=== PATIENT | male | born 1945 | race Caucasian/White ===

== ENCOUNTER 2021-08-27 12:36 | Inpatient (IN) | payer OTHER ==
--- OUTSIDE RECORDS SUMMARY | 2021-08-27 12:41 | XMS REPORT | Continuity of Care Document ---
:1945 Author Organization [facility] t Address [address] [place] [address] [address] [place] [address] Care Team Providers Name Role Phone SLADE BENTLEY Attending Clinician Unavailable SLADE BENTLEY Admitting Clinician Unavailable Problems This patient has no known problems. Allergies, Adverse Reactions, Alerts This patient has no known allergies or adverse reactions. Medications This patient has no known medications. Procedures This patient has no known procedures. Results Test Description Test Time Test Comments Results Result Comments Source MAGNESIUM 2016-08-28 05:41:00 Test Item Value Reference Range Interpretation Comme nts MAGNESIUM (BEAKER) (test code = 627) 1.7 mg/dL 1.6-2.6 BASIC METABOLIC [id number] 05:41:00 Test Item Value Reference Range Interpretation Comments SODIUM (BEAKER) 137 meq/L 136-145 (test code = 381) POTASSIUM (BEAKER) 4.1 meq/L 3.5-5.1 (test code = 379) CHLORIDE (BEAKER) 105 meq/L 98-107 (test code = 382) CO2 (BEAKER) (test 25 meq/L 22-29 code = 355) BLOOD UREA NITROGEN 15 mg/dL 7-21 (BEAKER) (test code = 354) CREATININE (BEAKER) 0.77 mg/dL 0.57-1.25 (test code = 358) GLUCOSE RANDOM 103 mg/dL 70-105 (BEAKER) (test code = 652) CALCIUM (BEAKER) 8.3 mg/dL 8.4-10.2 L (test code = 697) EGFR (BEAKER) (test 100 mL/min/1.73 ESTIM ATED GFR IS code = 1092) sq m NOT ACCURATE CREATININE CLEARANCE IN PREDICTING GLOMERULAR FILTRATION RATE . ESTIMATED GFR I S NOT APPLICABLE FOR DIALYSIS [facility]. CBC (HEMOGRAM ONLY)2016-08-28 05:20:00 Test Item Value Reference Range Interpretation Comments WHITE BLOOD CELL COUNT (BEAKER) 8.3 K/ L 4.0-10.0 (test code = 775) RED BLOOD CELL COUNT (BEAKER) 4.04 M/ L 4.20-5.80 L (test code = 761) HEMOGLOBIN (BEAKER) (test code = 13.0 GM/DL 13.0-16.8 410) HEMATOCRIT (BEAKER) (test code = 39.1 % 40.0-50.0 L 411) MEAN CORPUSCULAR VOLUME (BEAKER) 96.7 fL 82.0-98.0 (test code = 753) MEAN CORPUSCULAR HEMOGLOBIN 32.1 pg 27.0-33.0 (BEAKER) (test code = 751) MEAN CORPUSCULAR HEMOGLOBIN CONC 33.1 GM/DL 32.0-36.0 (BEAKER) (test code = 752) RED CELL DISTRIBUTION WIDTH 13.1 % 10.3-14.2 (BEAKER) (test code = 412) PLATELET COUNT (BEAKER) (test 318 K/CU MM 150-430 code = 756) MEAN PLATELET VOLUME (BEAKER) 7.5 fL 6.5-10.5 (test code = 754) NUCLEATED RED BLOOD CELLS 0 /100 WBC 0-0 (BEAKER) (test code = 413) [id number] 04:50:00 Test Item Value Reference Range Interpretation Comments MAGNESIUM (BEAKER) (test code = 1.7 mg/dL 1.6-2.6 627) BASIC METABOLIC [id number] 04:50:00 Test Item Value Reference Range Interpretation Comments SODIUM (BEAKER) 139 meq/L 136-145 (test code = 381) POTASSIUM (BEAKER) 4.1 meq/L 3.5-5.1 (test code = 379) CHLORIDE (BEAKER) 106 meq/L 98-107 (test code = 382) CO2 (BEAKER) (test 26 meq/L 22-29 code = 355) BLOOD UREA NITROGEN 12 mg/dL 7-21 (BEAKER) (test code = 354) CREATININE (BEAKER) 0.77 mg/dL 0.57-1.25 (test code = 358) GLUCOSE RANDOM 102 mg/dL 70-105 (BEAKER) (test code = 652) CALCIUM (BEAKER) 8.7 mg/dL 8.4-10.2 (test code = 697) EGFR (BEAKER) (test 100 mL/min/1.73 ESTIM ATED GFR IS code = 1092) sq m NOT ACCURATE CREATININE CLEARANCE IN PREDICTING GLOMERULAR FILTRATION RATE . ESTIMATED GFR I S NOT APPLICABLE FOR DIALYSIS PATIEN TS. CBC (HEMOGRAM ONLY)2016-08-27 04:40:00 Test Item Value Reference Range Interpretation Comments WHITE BLOOD CELL COUNT (BEAKER) 6.8 K/ L 4.0-10.0 (test code = 775) RED BLOOD CELL COUNT (BEAKER) 3.85 M/ L 4.20-5.80 L (test code = 761) HEMOGLOBIN (BEAKER) (test code = 12.8 GM/DL 13.0-16.8 L 410) HEMATOCRIT (BEAKER) (test code = 37.6 % 40.0-50.0 L 411) MEAN CORPUSCULAR VOLUME (BEAKER) 97.8 fL 82.0-98.0 (test code = 753) MEAN CORPUSCULAR HEMOGLOBIN 33.3 pg 27.0-33.0 H (BEAKER) (test code = 751) MEAN CORPUSCULAR HEMOGLOBIN CONC 34.1 GM/DL 32.0-36.0 (BEAKER) (test code = 752) RED CELL DISTRIBUTION WIDTH 11.5 % 10.3-14.2 (BEAKER) (test code = 412) PLATELET COUNT (BEAKER) (test 279 K/CU MM 150-430 code = 756) MEAN PLATELET VOLUME (BEAKER) 7.5 fL 6.5-10.5 (test code = 754) NUCLEATED RED BLOOD CELLS 0 /100 WBC 0-0 (BEAKER) (test code = 413) 0.00CBC (HEMOGRAM ONLY)2016-08-26 06:13:00 Test Item Value Reference Range Interpretation Comments WHITE BLOOD CELL COUNT (BEAKER) 7.9 K/ L 4.0-10.0 (test code = 775) RED BLOOD CELL COUNT (BEAKER) 4.19 M/ L 4.20-5.80 L (test code = 761) HEMOGLOBIN (BEAKER) (test code = 13.4 GM/DL 13.0-16.8 410) HEMATOCRIT (BEAKER) (test code = 40.9 % 40.0-50.0 411) MEAN CORPUSCULAR VOLUME (BEAKER) 97.6 fL 82.0-98.0 (test code = 753) MEAN CORPUSCULAR HEMOGLOBIN 32.1 pg 27.0-33.0 (BEAKER) (test code = 751) MEAN CORPUSCULAR HEMOGLOBIN CONC 32.9 GM/DL 32.0-36.0 (BEAKER) (test code = 752) RED CELL DISTRIBUTION WIDTH 13.2 % 10.3-14.2 (BEAKER) (test code = 412) PLATELET COUNT (BEAKER) (test 264 K/CU MM 150-430 code = 756) MEAN PLATELET VOLUME (BEAKER) 7.8 fL 6.5-10.5 (test code = 754) NUCLEATED RED BLOOD CELLS 0 /100 WBC 0-0 (BEAKER) (test code = 413) [id number] 06:01:00 Test Item Value Reference Range Interpretation Comments MAGNESIUM (BEAKER) (test code = 1.9 mg/dL 1.6-2.6 627) BASIC METABOLIC [id number] 06:01:00 Test Item Value Reference Range Interpretation Comments SODIUM (BEAKER) 139 meq/L 136-145 (test code = 381) POTASSIUM (BEAKER) 4.1 meq/L 3.5-5.1 (test code = 379) CHLORIDE (BEAKER) 106 meq/L 98-107 (test code = 382) CO2 (BEAKER) (test 27 meq/L 22-29 code = 355) BLOOD UREA NITROGEN 12 mg/dL 7-21 (BEAKER) (test code = 354) CREATININE (BEAKER) 0.74 mg/dL 0.57-1.25 (test code = 358) GLUCOSE RANDOM 100 mg/dL 70-105 (BEAKER) (test code = 652) CALCIUM (BEAKER) 8.8 mg/dL 8.4-10.2 (test code = 697) EGFR (BEAKER) (test 104 mL/min/1.73 ESTIM ATED GFR IS code = 1092) sq m NOT ACCURATE CREATININE CLEARANCE IN PREDICTING GLOMERULAR FILTRATION RATE . ESTIMATED GFR I S NOT APPLICABLE FOR DIALYSIS PATIMCKENZIE TS. [id number] 12:38:00 Test Item Value Reference Range Interpretation Comments MAGNESIUM (BEAKER) (test code = 1.9 mg/dL 1.6-2.6 627) [id number] 12:28:00 Test Item Value Reference Range Interpretation Comments PARTIAL THROMBOPLASTIN TIME 29.0 seconds 22.5-36.0 (BEAKER) (test code = 760) PROTHROMBIN [id number] 12:27:00 Test Item Value Reference Range Interpretation Comments PROTIME (BEAKER) (test code = 13.3 seconds 11.7-14.7 759) INR (BEAKER) (test code = 370) 1.0 <=5.9 RECOMMENDED COUMADIN/WARFARIN INR THERAPY RANGESSTANDARD DOSE: 2.0 - 3.0 Includes: PROPHYLAXIS forvenous thrombosis, systemic embolization; TREATMENT for venous thrombosis and/or pulmonary embolus.HIGH RISK: Target INR is 2.5-3.5 for patients with mechanical heart valves.[id number] 07:41:00 Test Item Value Reference Range Interpretation Comments MAGNESIUM (BEAKER) (test code = 6.4 mg/dL 1.6-2.6 HH 627) BASIC METABOLIC [id number] 07:24:00 Test Item Value Reference Range Interpretation Comments SODIUM (BEAKER) 138 meq/L 136-145 (test code = 381) POTASSIUM (BEAKER) 4.1 meq/L 3.5-5.1 (test code = 379) CHLORIDE (BEAKER) 104 meq/L 98-107 (test code = 382) CO2 (BEAKER) (test 29 meq/L 22-29 code = 355) BLOOD UREA NITROGEN 13 mg/dL 7-21 (BEAKER) (test code = 354) CREATININE (BEAKER) 0.74 mg/dL 0.57-1.25 (test code = 358) GLUCOSE RANDOM 97 mg/dL 70-105 (BEAKER) (test code = 652) CALCIUM (BEAKER) 8.5 mg/dL 8.4-10.2 (test code = 697) EGFR (BEAKER) (test 104 mL/min/1.73 ESTIM ATED GFR IS code = 1092) sq m NOT ACCURATE CREATININE CLEARANCE IN PREDICTING GLOMERULAR FILTRATION RATE . ESTIMATED GFR I S NOT APPLICABLE FOR DIALYSIS PATIEN TS. CBC (HEMOGRAM ONLY)2016-08-25 07:15:00 Test Item Value Reference Range Interpretation Comments WHITE BLOOD CELL COUNT (BEAKER) 8.6 K/ L 4.0-10.0 (test code = 775) RED BLOOD CELL COUNT (BEAKER) 3.90 M/ L 4.20-5.80 L (test code = 761) HEMOGLOBIN (BEAKER) (test code = 12.9 GM/DL 13.0-16.8 L 410) HEMATOCRIT (BEAKER) (test code = 37.8 % 40.0-50.0 L 411) MEAN CORPUSCULAR VOLUME (BEAKER) 97.0 fL 82.0-98.0 (test code = 753) MEAN CORPUSCULAR HEMOGLOBIN 33.0 pg 27.0-33.0 (BEAKER) (test code = 751) MEAN CORPUSCULAR HEMOGLOBIN CONC 34.0 GM/DL 32.0-36.0 (BEAKER) (test code = 752) RED CELL DISTRIBUTION WIDTH 13.2 % 10.3-14.2 (BEAKER) (test code = 412) PLATELET COUNT (BEAKER) (test 198 K/CU MM 150-430 code = 756) MEAN PLATELET VOLUME (BEAKER) 8.6 fL 6.5-10.5 (test code = 754) NUCLEATED RED BLOOD CELLS 0 /100 WBC 0-0 (BEAKER) (test code = 413) 0.00CBC (HEMOGRAM ONLY)2016-08-24 06:53:00 Test Item Value Reference Range Interpretation Comments WHITE BLOOD CELL COUNT (BEAKER) 10.8 K/ L 4.0-10.0 H (test code = 775) RED BLOOD CELL COUNT (BEAKER) 3.73 M/ L 4.20-5.80 L (test code = 761) HEMOGLOBIN (BEAKER) (test code = 12.3 GM/DL 13.0-16.8 L 410) HEMATOCRIT (BEAKER) (test code = 36.4 % 40.0-50.0 L 411) MEAN CORPUSCULAR VOLUME (BEAKER) 97.5 fL 82.0-98.0 (test code = 753) MEAN CORPUSCULAR HEMOGLOBIN 33.1 pg 27.0-33.0 H (BEAKER) (test code = 751) MEAN CORPUSCULAR HEMOGLOBIN CONC 33.9 GM/DL 32.0-36.0 (BEAKER) (test code = 752) RED CELL DISTRIBUTION WIDTH 11.7 % 10.3-14.2 (BEAKER) (test code = 412) PLATELET COUNT (BEAKER) (test 163 K/CU MM 150-430 code = 756) MEAN PLATELET VOLUME (BEAKER) 9.1 fL 6.5-10.5 (test code = 754) NUCLEATED RED BLOOD CELLS 0 /100 WBC 0-0 (BEAKER) (test code = 413) [id number] 06:39:00 Test Item Value Reference Range Interpretation Comments MAGNESIUM (BEAKER) (test code = 1.8 mg/dL 1.6-2.6 627) BASIC METABOLIC [id number] 06:39:00 Test Item Value Reference Range Interpretation Comments SODIUM (BEAKER) 136 meq/L 136-145 (test code = 381) POTASSIUM (BEAKER) 3.8 meq/L 3.5-5.1 (test code = 379) CHLORIDE (BEAKER) 102 meq/L 98-107 (test code = 382) CO2 (BEAKER) (test 29 meq/L 22-29 code = 355) BLOOD UREA NITROGEN 15 mg/dL 7-21 (BEAKER) (test code = 354) CREATININE (BEAKER) 0.81 mg/dL 0.57-1.25 (test code = 358) GLUCOSE RANDOM 109 mg/dL 70-105 H (BEAKER) (test code = 652) CALCIUM (BEAKER) 8.5 mg/dL 8.4-10.2 (test code = 697) EGFR (BEAKER) (test 94 mL/min/1.73 ESTIMA SAMEER GFR IS code = 1092) sq m NOT ACCURATE CREATININE CLEARANCE IN PREDICTING GLOMERULAR FILTRATION RATE . ESTIMATED GFR I S NOT APPLICABLE FOR DIALYSIS PATIEN TS. CBC (HEMOGRAM ONLY)2016-08-23 02:41:00 Test Item Value Reference Range Interpretation Comments WHITE BLOOD CELL COUNT (BEAKER) 13.9 K/ L 4.0-10.0 H (test code = 775) RED BLOOD CELL COUNT (BEAKER) 3.84 M/ L 4.20-5.80 L (test code = 761) HEMOGLOBIN (BEAKER) (test code = 13.2 GM/DL 13.0-16.8 410) HEMATOCRIT (BEAKER) (test code = 37.8 % 40.0-50.0 L 411) MEAN CORPUSCULAR VOLUME (BEAKER) 98.2 fL 82.0-98.0 H (test code = 753) MEAN CORPUSCULAR HEMOGLOBIN 34.4 pg 27.0-33.0 H (BEAKER) (test code = 751) MEAN CORPUSCULAR HEMOGLOBIN CONC 35.0 GM/DL 32.0-36.0 (BEAKER) (test code = 752) RED CELL DISTRIBUTION WIDTH 11.7 % 10.3-14.2 (BEAKER) (test code = 412) PLATELET COUNT (BEAKER) (test 140 K/CU MM 150-430 L code = 756) MEAN PLATELET VOLUME (BEAKER) 8.8 fL 6.5-10.5 (test code = 754) NUCLEATED RED BLOOD CELLS 0 /100 WBC 0-0 (BEAKER) (test code = 413) 0.00B-TYPE NATRIURETIC FACTOR (BNP)2016-08-23 02:39:00 Test Item Value Reference Range Interpretation Comments B-TYPE NATRIURETIC PEPTIDE (BEAKER) 229 pg/mL 0-100 H (test code = 700) [id number] 02:33:00 Test Item Value Reference Range Interpretation Comments MAGNESIUM (BEAKER) (test code = 1.5 mg/dL 1.6-2.6 L 627) BASIC METABOLIC [id number] 02:33:00 Test Item Value Reference Range Interpretation Comments SODIUM (BEAKER) 133 meq/L 136-145 L (test code = 381) POTASSIUM (BEAKER) 4.0 meq/L 3.5-5.1 (test code = 379) CHLORIDE (BEAKER) 102 meq/L 98-107 (test code = 382) CO2 (BEAKER) (test 26 meq/L 22-29 code = 355) BLOOD UREA NITROGEN 8 mg/dL 7-21 (BEAKER) (test code = 354) CREATININE (BEAKER) 0.79 mg/dL 0.57-1.25 (test code = 358) GLUCOSE RANDOM 132 mg/dL 70-105 H (BEAKER) (test code = 652) CALCIUM (BEAKER) 8.1 mg/dL 8.4-10.2 L (test code = 697) EGFR (BEAKER) (test 97 mL/min/1.73 ESTIMA SAMEER GFR IS code = 1092) sq m NOT ACCURATE CREATININE CLEARANCE IN PREDICTING GLOMERULAR FILTRATION RATE . ESTIMATED GFR I S NOT APPLICABLE FOR DIALYSIS PATIEN TS. [id number] 05:57:00 Test Item Value Reference Range Interpretation Comments ACTIVATED CLOTTING TIME 121 sec TEST ED AT [place] [address] ([facility]) (test code = [facility] 441) [id number] 05:57:00 Test Item Value Reference Range Interpretation Comments ACTIVATED CLOTTING TIME 410 sec TEST ED AT [place] [address] ([facility]) (test code = [place] [address]) [id number] 05:57:00 Test Item Value Reference Range Interpretation Comments ACTIVATED CLOTTING TIME 528 sec TEST ED AT [place] [address] ([facility]) (test code = [place] [address]) [id number] 04:30:00 Test Item Value Reference Range Interpretation Comments MAGNESIUM (BEAKER) (test code = 2.0 mg/dL 1.6-2.6 627) BASIC METABOLIC [id number] 04:30:00 Test Item Value Reference Range Interpretation Comments SODIUM (BEAKER) 138 meq/L 136-145 (test code = 381) POTASSIUM (BEAKER) 4.7 meq/L 3.5-5.1 (test code = 379) CHLORIDE (BEAKER) 109 meq/L 98-107 H (test code = 382) CO2 (BEAKER) (test 23 meq/L 22-29 code = 355) BLOOD UREA NITROGEN 9 mg/dL 7-21 (BEAKER) (test code = 354) CREATININE (BEAKER) 0.78 mg/dL 0.57-1.25 (test code = 358) GLUCOSE RANDOM 135 mg/dL 70-105 H (BEAKER) (test code = 652) CALCIUM (BEAKER) 8.0 mg/dL 8.4-10.2 L (test code = 697) EGFR (BEAKER) (test 98 mL/min/1.73 ESTIMA SAMEER GFR IS code = 1092) sq m NOT ACCURATE CREATININE CLEARANCE IN PREDICTING GLOMERULAR FILTRATION RATE . ESTIMATED GFR I S NOT APPLICABLE FOR DIALYSIS PATIEN TS. CBC W/PLT COUNT & AUTO [id number] 04:29:00 Test Item Value Reference Range Interpretation Comments WHITE BLOOD CELL COUNT (BEAKER) 14.0 K/ L 4.0-10.0 H (test code = 775) RED BLOOD CELL COUNT (BEAKER) 3.76 M/ L 4.20-5.80 L (test code = 761) HEMOGLOBIN (BEAKER) (test code = 12.8 GM/DL 13.0-16.8 L 410) HEMATOCRIT (BEAKER) (test code = 35.9 % 40.0-50.0 L 411) MEAN CORPUSCULAR VOLUME (BEAKER) 95.4 fL 82.0-98.0 (test code = 753) MEAN CORPUSCULAR HEMOGLOBIN 34.0 pg 27.0-33.0 H (BEAKER) (test code = 751) MEAN CORPUSCULAR HEMOGLOBIN CONC 35.6 GM/DL 32.0-36.0 (BEAKER) (test code = 752) RED CELL DISTRIBUTION WIDTH 12.6 % 10.3-14.2 (BEAKER) (test code = 412) PLATELET COUNT (BEAKER) (test 162 K/CU MM 150-430 code = 756) MEAN PLATELET VOLUME (BEAKER) 8.6 fL 6.5-10.5 (test code = 754) NUCLEATED RED BLOOD CELLS 0 /100 WBC 0-0 (BEAKER) (test code = 413) NEUTROPHILS RELATIVE PERCENT 85 % (BEAKER) (test code = 429) LYMPHOCYTES RELATIVE PERCENT 5 % (BEAKER) (test code = 430) MONOCYTES RELATIVE PERCENT 10 % (BEAKER) (test code = 431) EOSINOPHILS RELATIVE PERCENT 0 % (BEAKER) (test code = 432) BASOPHILS RELATIVE PERCENT 0 % (BEAKER) (test code = 437) NEUTROPHILS ABSOLUTE COUNT 11.80 K/ L 1.80-8.00 H (BEAKER) (test code = 670) LYMPHOCYTES ABSOLUTE COUNT 0.66 K/ L 1.48-4.50 L (BEAKER) (test code = 414) MONOCYTES ABSOLUTE COUNT (BEAKER) 1.44 K/ L 0.00-1.30 H (test code = 415) EOSINOPHILS ABSOLUTE COUNT 0.01 K/ L 0.00-0.50 (BEAKER) (test code = 416) BASOPHILS ABSOLUTE COUNT (BEAKER) 0.02 K/ L 0.00-0.20 (test code = 417) [id number] 04:26:00 Test Item Value Reference Range Interpretation Comments PHOSPHORUS (BEAKER) (test code = 3.8 mg/dL 2.3-4.7 604) [id number] 04:26:00 Test Item Value Reference Range Interpretation Comments MAGNESIUM (BEAKER) (test code = 2.0 mg/dL 1.6-2.6 627) BASIC METABOLIC [id number] 04:26:00 Test Item Value Reference Range Interpretation Comments SODIUM (BEAKER) 137 meq/L 136-145 (test code = 381) POTASSIUM (BEAKER) 4.6 meq/L 3.5-5.1 (test code = 379) CHLORIDE (BEAKER) 108 meq/L 98-107 H (test code = 382) CO2 (BEAKER) (test 24 meq/L 22-29 code = 355) BLOOD UREA NITROGEN 9 mg/dL 7-21 (BEAKER) (test code = 354) CREATININE (BEAKER) 0.78 mg/dL 0.57-1.25 (test code = 358) GLUCOSE RANDOM 137 mg/dL 70-105 H (BEAKER) (test code = 652) CALCIUM (BEAKER) 8.1 mg/dL 8.4-10.2 L (test code = 697) EGFR (BEAKER) (test 98 mL/min/1.73 ESTIMA SAMEER GFR IS code = 1092) sq m NOT ACCURATE CREATININE CLEARANCE IN PREDICTING GLOMERULAR FILTRATION RATE . ESTIMATED GFR I S NOT APPLICABLE FOR DIALYSIS PATIEN TS. CBC (HEMOGRAM ONLY)2016-08-22 04:22:00 Test Item Value Reference Range Interpretation Comments WHITE BLOOD CELL COUNT (BEAKER) 14.0 K/ L 4.0-10.0 H (test code = 775) RED BLOOD CELL COUNT (BEAKER) 3.76 M/ L 4.20-5.80 L (test code = 761) HEMOGLOBIN (BEAKER) (test code = 12.8 GM/DL 13.0-16.8 L 410) HEMATOCRIT (BEAKER) (test code = 35.9 % 40.0-50.0 L 411) MEAN CORPUSCULAR VOLUME (BEAKER) 95.4 fL 82.0-98.0 (test code = 753) MEAN CORPUSCULAR HEMOGLOBIN 34.0 pg 27.0-33.0 H (BEAKER) (test code = 751) MEAN CORPUSCULAR HEMOGLOBIN CONC 35.6 GM/DL 32.0-36.0 (BEAKER) (test code = 752) RED CELL DISTRIBUTION WIDTH 12.6 % 10.3-14.2 (BEAKER) (test code = 412) PLATELET COUNT (BEAKER) (test 162 K/CU MM 150-430 code = 756) MEAN PLATELET VOLUME (BEAKER) 8.6 fL 6.5-10.5 (test code = 754) NUCLEATED RED BLOOD CELLS 0 /100 WBC 0-0 (BEAKER) (test code = 413) 0.00BLOOD GAS, [id number] 18:15:00 Test Item Value Reference Range Interpretation Comments PH ARTERIAL (BEAKER) (test code = 7.43 7.35-7.45 383) PCO2 ARTERIAL (BEAKER) (test code 32 mmHg 35-45 L = 384) PO2 ARTERIAL (BEAKER) (test code 85 mmHg 80-90 = 385) O2 SATURATION ARTERIAL (BEAKER) 97.2 % 96.0-97.0 H (test code = 386) HCO3 ARTERIAL (BEAKER) (test code 21 mmol/L 21-29 = 388) BASE EXCESS ARTERIAL (BEAKER) -2.5 mmol/L -2.0-3.0 L (test code = 387) PATIENT TEMPERATURE (BEAKER) 35.6 C (test code = 1818) FIO2 (BEAKER) (test code = 1819) 60.0 % GLUCOSE-STAT [id number] 18:15:00 Test Item Value Reference Range Interpretation Comments GLUCOSE RANDOM (BEAKER) (test code 126 mg/dL 70-110 H = 652) [id number] 18:14:00 Test Item Value Reference Range Interpretation Comments MAGNESIUM (BEAKER) (test code = 2.0 mg/dL 1.6-2.6 627) POTASSIUM-STAT [id number] 18:11:00 Test Item Value Reference Range Interpretation Comments POTASSIUM (BEAKER) (test code = 4.1 meq/L 3.6-5.5 379) [id number] 16:35:00 Test Item Value Reference Range Interpretation Comments MAGNESIUM (BEAKER) 2.4 mg/dL 1.6-2.6 Specimen slightly (test code = 627) hemolyzed [id number] 16:35:00 Test Item Value Reference Range Interpretation Comments PHOSPHORUS (BEAKER) 3.1 mg/dL 2.3-4.7 Specimen slightly (test code = 604) hemolyzed [id number] 16:35:00 Test Item Value Reference Range Interpretation Comments POTASSIUM (BEAKER) 4.5 meq/L 3.5-5.1 Specimen slightly (test code = 379) hemolyzed [id number] 16:35:00 Test Item Value Reference Range Interpretation Comments SODIUM (BEAKER) (test code = 381) 137 meq/L 136-145 [id number] 16:35:00 Test Item Value Reference Range Interpretation Comments GLUCOSE RANDOM (BEAKER) (test code 127 mg/dL 70-105 H = 652) Effective 02/21/2014: Reference Range Change-Adult onlyNew: 70-105 Previous: 70-110BASIC METABOLIC [id number] 16:35:00 Test Item Value Reference Range Interpretation Comments SODIUM (BEAKER) 137 meq/L 136-145 (test code = 381) POTASSIUM (BEAKER) 4.5 meq/L 3.5-5.1 Specimen slightly (test code = 379) hemolyzed CHLORIDE (BEAKER) 109 meq/L 98-107 H (test code = 382) CO2 (BEAKER) (test 21 meq/L 22-29 L code = 355) BLOOD UREA NITROGEN 9 mg/dL 7-21 (BEAKER) (test code = 354) CREATININE (BEAKER) 0.78 mg/dL 0.57-1.25 Specimen slightly (test code = 358) hemolyzed GLUCOSE RANDOM 127 mg/dL 70-105 H (BEAKER) (test code = 652) CALCIUM (BEAKER) 8.7 mg/dL 8.4-10.2 (test code = 697) EGFR (BEAKER) (test 98 mL/min/1.73 ESTIMA SAMEER GFR IS code = 1092) sq m NOT ACCURATE CREATININE CLEARANCE IN PREDICTING GLOMERULAR FILTRATION RATE . ESTIMATED GFR I S NOT APPLICABLE FOR DIALYSIS PATIEN TS. LACTIC ACID, ARTERIAL, WHOLE [id number] 16:30:00 Test Item Value Reference Range Interpretation Comments LACTATE BLOOD 1.1 mmol/L 0.5-2.2 Specimen sligh tly ARTERIAL (2) (BEAKER) hemoly zed (test code = 2874) Effective 08/08/2015: Units/Reference Range ChangeNew: 0.5-2.2 mmol/L Previous: 5-20 mg/dLCBC W/PLT COUNT & AUTO [id number] 16:22:00 Test Item Value Reference Range Interpretation Comments WHITE BLOOD CELL COUNT (BEAKER) 12.7 K/ L 4.0-10.0 H (test code = 775) RED BLOOD CELL COUNT (BEAKER) 3.90 M/ L 4.20-5.80 L (test code = 761) HEMOGLOBIN (BEAKER) (test code = 13.3 GM/DL 13.0-16.8 410) HEMATOCRIT (BEAKER) (test code = 37.0 % 40.0-50.0 L 411) MEAN CORPUSCULAR VOLUME (BEAKER) 94.6 fL 82.0-98.0 (test code = 753) MEAN CORPUSCULAR HEMOGLOBIN 34.1 pg 27.0-33.0 H (BEAKER) (test code = 751) MEAN CORPUSCULAR HEMOGLOBIN CONC 36.0 GM/DL 32.0-36.0 (BEAKER) (test code = 752) RED CELL DISTRIBUTION WIDTH 12.4 % 10.3-14.2 (BEAKER) (test code = 412) PLATELET COUNT (BEAKER) (test 157 K/CU MM 150-430 code = 756) MEAN PLATELET VOLUME (BEAKER) 8.4 fL 6.5-10.5 (test code = 754) NUCLEATED RED BLOOD CELLS 0 /100 WBC 0-0 (BEAKER) (test code = 413) NEUTROPHILS RELATIVE PERCENT 82 % (BEAKER) (test code = 429) LYMPHOCYTES RELATIVE PERCENT 9 % (BEAKER) (test code = 430) MONOCYTES RELATIVE PERCENT 7 % (BEAKER) (test code = 431) EOSINOPHILS RELATIVE PERCENT 1 % (BEAKER) (test code = 432) BASOPHILS RELATIVE PERCENT 0 % (BEAKER) (test code = 437) NEUTROPHILS ABSOLUTE COUNT 10.40 K/ L 1.80-8.00 H (BEAKER) (test code = 670) LYMPHOCYTES ABSOLUTE COUNT 1.17 K/ L 1.48-4.50 L (BEAKER) (test code = 414) MONOCYTES ABSOLUTE COUNT (BEAKER) 0.92 K/ L 0.00-1.30 (test code = 415) EOSINOPHILS ABSOLUTE COUNT 0.14 K/ L 0.00-0.50 (BEAKER) (test code = 416) BASOPHILS ABSOLUTE COUNT (BEAKER) 0.05 K/ L 0.00-0.20 (test code = 417) 0.00CALCIUM, [id number] 16:10:00 Test Item Value Reference Range Interpretation Comments CALCIUM IONIZED (BEAKER) (test 1.11 mmol/L 1.12-1.27 L code = 698) PH, BLOOD (BEAKER) (test code = 7.40 1810) BLOOD GAS, [id number] 16:10:00 Test Item Value Reference Range Interpretation Comments PH ARTERIAL (BEAKER) (test code = 7.43 7.35-7.45 383) PCO2 ARTERIAL (BEAKER) (test code 36 mmHg 35-45 = 384) PO2 ARTERIAL (BEAKER) (test code 63 mmHg 80-90 L = 385) O2 SATURATION ARTERIAL (BEAKER) 94.3 % 96.0-97.0 L (test code = 386) HCO3 ARTERIAL (BEAKER) (test code 24 mmol/L 21-29 = 388) BASE EXCESS ARTERIAL (BEAKER) -1.0 mmol/L -2.0-3.0 (test code = 387) PATIENT TEMPERATURE (BEAKER) 35.3 C (test code = 1818) FIO2 (BEAKER) (test code = 1819) 60.0 % OXYGEN SATURATION, [id number] 16:08:00 Test Item Value Reference Range Interpretation Comments O2 SATURATION (MEASURED) (BEAKER) 59.9 % (test code = 1455) From distal port of IJ central venous catheterBLOOD GAS, [id number] 14:53:00 Test Item Value Reference Range Interpretation Comments PH ARTERIAL (BEAKER) (test code = 7.41 7.35-7.45 383) PCO2 ARTERIAL (BEAKER) (test code 36 mmHg 35-45 = 384) PO2 ARTERIAL (BEAKER) (test code 132 mmHg 80-90 H = 385) O2 SATURATION ARTERIAL (BEAKER) 98.8 % 96.0-97.0 H (test code = 386) HCO3 ARTERIAL (BEAKER) (test code 23 mmol/L 21-29 = 388) BASE EXCESS ARTERIAL (BEAKER) -2.0 mmol/L -2.0-3.0 (test code = 387) PATIENT TEMPERATURE (BEAKER) 35.1 C (test code = 1818) FIO2 (BEAKER) (test code = 1819) 97.0 % GLUCOSE-STAT [id number] 14:53:00 Test Item Value Reference Range Interpretation Comments GLUCOSE RANDOM (BEAKER) (test code 136 mg/dL 70-110 H = 652) HGB/HCT (H&H) - STAT [id number] 14:53:00 Test Item Value Reference Range Interpretation Comments HEMOGLOBIN (BEAKER) (test code = 12.9 g/dL 13.0-16.8 L 410) HEMATOCRIT (BEAKER) (test code = 38.0 % 40.0-50.0 L 411) CALCIUM, [id number] 14:53:00 Test Item Value Reference Range Interpretation Comments CALCIUM IONIZED (BEAKER) (test 0.96 mmol/L 1.12-1.27 L code = 698) PH, BLOOD (BEAKER) (test code = 7.39 1810) SODIUM NA-STAT [id number] 14:52:00 Test Item Value Reference Range Interpretation Comments SODIUM (BEAKER) (test code = 381) 135 meq/L 135-148 POTASSIUM-STAT [id number] 14:52:00 Test Item Value Reference Range Interpretation Comments POTASSIUM (BEAKER) (test code = 4.0 meq/L 3.6-5.5 379) THROMBOELASTOGRAPH (TEG)[id number] 14:24:00 Test Item Value Reference Range Interpretation Comments TEG ACTIVATED CLOTTING TIME 4.2 minutes 4.0-7.0 (BEAKER) (test code = 1407) TEG FIBRINOGEN ACTIVITY (BEAKER) 72.7 degrees 61.0-73.0 (test code = 1408) TEG PLT. AGGREGATION (BEAKER) 56.0 MM 55.0-65.0 (test code = 1409) TGH ACTIVATED CLOTTING TIME 4.5 minutes 4.0-7.0 (BEAKER) (test code = 1411) TGH FIBRINOGEN ACTIVITY (BEAKER) 72.6 degrees 61.0-73.0 (test code = 1412) TGH PLT. AGGREGATION (BEAKER) 66.1 MM 55.0-65.0 H (test code = 1413) [id number] 14:13:00 Test Item Value Reference Range Interpretation Comments FIBRINOGEN LEVEL (BEAKER) (test 209 mg/dl 225-434 L code = 658) PROTHROMBIN [id number] 14:08:00 Test Item Value Reference Range Interpretation Comments PROTIME (BEAKER) (test code = 19.2 seconds 11.7-14.7 H 759) INR (BEAKER) (test code = 370) 1.6 <=5.9 RECOMMENDED COUMADIN/WARFARIN INR THERAPY RANGESSTANDARD DOSE: 2.0 - 3.0 Includes: PROPHYLAXIS forvenous thrombosis, systemic embolization; TREATMENT for venous thrombosis and/or pulmonary embolus.HIGH RISK: Target INR is 2.5-3.5 for patients with mechanical heart valves.[id number] 14:08:00 Test Item Value Reference Range Interpretation Comments PARTIAL THROMBOPLASTIN TIME 30.3 seconds 22.5-36.0 (BEAKER) (test code = 760) PLATELET [id number] 14:01:00 Test Item Value Reference Range Interpretation Comments PLATELET COUNT (BEAKER) (test 158 K/CU MM 150-430 code = 756) BLOOD GAS, [id number] 13:53:00 Test Item Value Reference Range Interpretation Comments PH ARTERIAL (BEAKER) (test code = 7.46 7.35-7.45 H 383) PCO2 ARTERIAL (BEAKER) (test code 33 mmHg 35-45 L = 384) PO2 ARTERIAL (BEAKER) (test code 219 mmHg 80-90 H = 385) O2 SATURATION ARTERIAL (BEAKER) 99.5 % 96.0-97.0 H (test code = 386) HCO3 ARTERIAL (BEAKER) (test code 23 mmol/L 21-29 = 388) BASE EXCESS ARTERIAL (BEAKER) -0.8 mmol/L -2.0-3.0 (test code = 387) PATIENT TEMPERATURE (BEAKER) 35.5 C (test code = 1818) FIO2 (BEAKER) (test code = 1819) 97.0 % GLUCOSE-STAT [id number] 13:53:00 Test Item Value Reference Range Interpretation Comments GLUCOSE RANDOM (BEAKER) (test code 112 mg/dL 70-110 H = 652) SODIUM NA-STAT [id number] 13:53:00 Test Item Value Reference Range Interpretation Comments SODIUM (BEAKER) (test code = 381) 133 meq/L 135-148 L HGB/HCT (H&H) - STAT [id number] 13:53:00 Test Item Value Reference Range Interpretation Comments HEMOGLOBIN (BEAKER) (test code = 11.5 g/dL 13.0-16.8 L 410) HEMATOCRIT (BEAKER) (test code = 34.0 % 40.0-50.0 L 411) CALCIUM, [id number] 13:53:00 Test Item Value Reference Range Interpretation Comments CALCIUM IONIZED (BEAKER) (test 1.11 mmol/L 1.12-1.27 L code = 698) PH, BLOOD (BEAKER) (test code = 7.44 1810) POTASSIUM-STAT [id number] 13:50:00 Test Item Value Reference Range Interpretation Comments POTASSIUM (BEAKER) (test code = 4.3 meq/L 3.6-5.5 379) POTASSIUM-STAT [id number] 13:11:00 Test Item Value Reference Range Interpretation Comments POTASSIUM (BEAKER) (test code = 4.5 meq/L 3.6-5.5 379) BLOOD GAS, [id number] 13:11:00 Test Item Value Reference Range Interpretation Comments PH ARTERIAL (BEAKER) (test code = 7.42 7.35-7.45 383) PCO2 ARTERIAL (BEAKER) (test code 37 mmHg 35-45 = 384) PO2 ARTERIAL (BEAKER) (test code 492 mmHg 80-90 H = 385) O2 SATURATION ARTERIAL (BEAKER) 99.9 % 96.0-97.0 H (test code = 386) HCO3 ARTERIAL (BEAKER) (test code 25 mmol/L 21-29 = 388) BASE EXCESS ARTERIAL (BEAKER) -0.9 mmol/L -2.0-3.0 (test code = 387) PATIENT TEMPERATURE (BEAKER) 31.8 C (test code = 1818) FIO2 (BEAKER) (test code = 1819) 80.0 % GLUCOSE-STAT [id number] 13:11:00 Test Item Value Reference Range Interpretation Comments GLUCOSE RANDOM (BEAKER) (test code 114 mg/dL 70-110 H = 652) SODIUM NA-STAT [id number] 13:11:00 Test Item Value Reference Range Interpretation Comments SODIUM (BEAKER) (test code = 381) 133 meq/L 135-148 L HGB/HCT (H&H) - STAT [id number] 13:11:00 Test Item Value Reference Range Interpretation Comments HEMOGLOBIN (BEAKER) (test code = 10.4 g/dL 13.0-16.8 L 410) HEMATOCRIT (BEAKER) (test code = 31.0 % 40.0-50.0 L 411) BLOOD GAS, [id number] 12:10:00 Test Item Value Reference Range Interpretation Comments PH ARTERIAL (BEAKER) (test code = 7.46 7.35-7.45 H 383) PCO2 ARTERIAL (BEAKER) (test code 35 mmHg 35-45 = 384) PO2 ARTERIAL (BEAKER) (test code = 255 mmHg 80-90 H 385) O2 SATURATION ARTERIAL (BEAKER) 99.6 % 96.0-97.0 H (test code = 386) HCO3 ARTERIAL (BEAKER) (test code 25 mmol/L 21-29 = 388) BASE EXCESS ARTERIAL (BEAKER) 0.7 mmol/L -2.0-3.0 (test code = 387) PATIENT TEMPERATURE (BEAKER) (test 35.4 C code = 1818) FIO2 (BEAKER) (test code = 1819) 100.0 % POTASSIUM-STAT [id number] 12:08:00 Test Item Value Reference Range Interpretation Comments POTASSIUM (BEAKER) (test code = 3.7 meq/L 3.6-5.5 379) HGB/HCT (H&H) - STAT [id number] 12:08:00 Test Item Value Reference Range Interpretation Comments HEMOGLOBIN (BEAKER) (test code = 15.2 g/dL 13.0-16.8 410) HEMATOCRIT (BEAKER) (test code = 45.0 % 40.0-50.0 411) GLUCOSE-STAT [id number] 12:08:00 Test Item Value Reference Range Interpretation Comments GLUCOSE RANDOM (BEAKER) (test code 101 mg/dL 70-110 = 652) SODIUM NA-STAT [id number] 12:08:00 Test Item Value Reference Range Interpretation Comments SODIUM (BEAKER) (test code = 381) 137 meq/L 135-148 HEMOGLOBIN [id number] 12:31:00 Test Item Value Reference Range Interpretation Comments HEMOGLOBIN A1C (BEAKER) (test code = 4.9 % 4.3-6.1 368) BASIC METABOLIC [id number] 10:54:00 Test Item Value Reference Range Interpretation Comments SODIUM (BEAKER) 138 meq/L 136-145 (test code = 381) POTASSIUM (BEAKER) 4.0 meq/L 3.5-5.1 (test code = 379) CHLORIDE (BEAKER) 104 meq/L 98-107 (test code = 382) CO2 (BEAKER) (test 27 meq/L 22-29 code = 355) BLOOD UREA NITROGEN 13 mg/dL 7-21 (BEAKER) (test code = 354) CREATININE (BEAKER) 0.92 mg/dL 0.57-1.25 (test code = 358) GLUCOSE RANDOM 111 mg/dL 70-105 H (BEAKER) (test code = 652) CALCIUM (BEAKER) 9.3 mg/dL 8.4-10.2 (test code = 697) EGFR (BEAKER) (test 81 mL/min/1.73 ESTIMA SAMEER GFR IS code = 1092) sq m NOT ACCURATE CREATININE CLEARANCE IN PREDICTING GLOMERULAR FILTRATION RATE . ESTIMATED GFR I S NOT APPLICABLE FOR DIALYSIS PATIEN TS. CBC W/PLT COUNT & AUTO [id number] 10:47:00 Test Item Value Reference Range Interpretation Comments WHITE BLOOD CELL COUNT (BEAKER) 6.3 K/ L 4.0-10.0 (test code = 775) RED BLOOD CELL COUNT (BEAKER) 4.71 M/ L 4.20-5.80 (test code = 761) HEMOGLOBIN (BEAKER) (test code = 16.0 GM/DL 13.0-16.8 410) HEMATOCRIT (BEAKER) (test code = 45.4 % 40.0-50.0 411) MEAN CORPUSCULAR VOLUME (BEAKER) 96.5 fL 82.0-98.0 (test code = 753) MEAN CORPUSCULAR HEMOGLOBIN 34.0 pg 27.0-33.0 H (BEAKER) (test code = 751) MEAN CORPUSCULAR HEMOGLOBIN CONC 35.3 GM/DL 32.0-36.0 (BEAKER) (test code = 752) RED CELL DISTRIBUTION WIDTH 11.8 % 10.3-14.2 (BEAKER) (test code = 412) PLATELET COUNT (BEAKER) (test 188 K/CU MM 150-430 code = 756) MEAN PLATELET VOLUME (BEAKER) 8.7 fL 6.5-10.5 (test code = 754) NUCLEATED RED BLOOD CELLS 0 /100 WBC 0-0 (BEAKER) (test code = 413) NEUTROPHILS RELATIVE PERCENT 67 % (BEAKER) (test code = 429) LYMPHOCYTES RELATIVE PERCENT 15 % (BEAKER) (test code = 430) MONOCYTES RELATIVE PERCENT 15 % (BEAKER) (test code = 431) EOSINOPHILS RELATIVE PERCENT 2 % (BEAKER) (test code = 432) BASOPHILS RELATIVE PERCENT 1 % (BEAKER) (test code = 437) NEUTROPHILS ABSOLUTE COUNT 4.21 K/ L 1.80-8.00 (BEAKER) (test code = 670) LYMPHOCYTES ABSOLUTE COUNT 0.95 K/ L 1.48-4.50 L (BEAKER) (test code = 414) MONOCYTES ABSOLUTE COUNT (BEAKER) 0.91 K/ L 0.00-1.30 (test code = 415) EOSINOPHILS ABSOLUTE COUNT 0.16 K/ L 0.00-0.50 (BEAKER) (test code = 416) BASOPHILS ABSOLUTE COUNT (BEAKER) 0.07 K/ L 0.00-0.20 (test code = 417) 0.00PROTHROMBIN [id number] 10:46:00 Test Item Value Reference Range Interpretation Comments PROTIME (BEAKER) (test code = 13.4 seconds 11.7-14.7 759) INR (BEAKER) (test code = 370) 1.0 <=5.9 RECOMMENDED COUMADIN/WARFARIN INR THERAPY RANGESSTANDARD DOSE: 2.0 - 3.0 Includes: PROPHYLAXIS forvenous thrombosis, systemic embolization; TREATMENT for venous thrombosis and/or pulmonary embolus.HIGH RISK: Target INR is 2.5-3.5 for patients with mechanical heart valves.
[2021-08-27 13:20] LABS: Absolute Lymphocytes (CBC) 0.5 K/uL (0.7-4.9); Hematocrit 39.8 % (39.6-49.0); Lymphocytes % 11.5 % (15.3-44.8); MPV 8.6 fL (7.6-11.3); RBC Red Blood Cell Count 4.36 M/uL (4.33-5.43)
[2021-08-27 13:30] LABS: Protime INR 0.98
--- NOTE | 2021-08-27 13:38 | RAD REPORT ---
EXAM DESCRIPTION: RAD - Chest Single View - 08/27/2021 1:24 pm CLINICAL HISTORY: slurred speech COMPARISON: Two view chest 07/30/2020 TECHNIQUE: AP portable chest image was obtained 08/27/2021 1:24 pm . FINDINGS: No acute lung parenchymal process. Interstitial pattern matches comparison. Sternotomy wires are in place. Mild cardiomegaly is present without vascular engorgement. No measurab le pleural effusion and no pneumothorax. No acute bony abnormality seen. No acute aortic findings errol pected. IMPRESSION: No acute cardiopulmonary process. Mild cardiomegaly is present without other findings of CHF/volume overload. No significant change from comparison study.
--- NOTE | 2021-08-27 14:47 | RAD REPORT ---
EXAM DESCRIPTION: CT - Head angio - 08/27/2021 2:19 pm CLINICAL HISTORY: Neuro deficit, acute, stroke suspected TECHNIQUE: During dynamic enhancement using nonionic IV contrast, axial 1 millimeter thick images of the head were obtained. Sagittal and axial reconstruction images were generated using MIP technique and reviewed. All CT scans are performed using dose optimization technique as appropriate and may include automated exposure control or mA/KV adjustment according to patient size. COMPARISON: CT head same date FINDINGS: No aneurysm or vascular malformation identified. Major venous sinuses are patent. No stenosis, named branch occlusion, vasculitis or other significant vascular finding identifiable in the anterior, middle or posterior cerebral artery distributions. No basilar artery abnormality. Cave rnous and supraclinoid segments of each internal carotid artery show prominent atherosclerotic calcif ications. Stenosis does not exceed 30-40%. . IMPRESSION: Distal internal carotid artery atherosclerotic calcifications are present without signi ficant stenosis. No named branch occlusion, vasculitis or other significant finding identifiable.
--- NOTE | 2021-08-27 14:48 | RAD REPORT ---
EXAM DESCRIPTION: CT - Head Brain Wo Cont - 08/27/2021 2:18 pm CLINICAL HISTORY: Neuro deficit, acute, stroke suspected COMPARISON: Head angio dated 08/27/2021 TECHNIQUE: Axial 5 mm thick images of the head were obtained without IV contrast. All CT scans are performed using dose optimization technique as appropriate and may include automated exposure control or mA/KV adjustment according to patient size. FINDINGS: No intracranial hemorrhage, mass, edema or shift of mid-line structures. No acute infarcti on changes seen. No cortical edema or sulcal effacement. Atrophy changes are mild. Chronic ischemic c hanges minimal. Ventricles are normal. Mastoid air cells and visualized portions of the paranasal sinuses are clear. No acute bony findings. IMPRESSION: Negative non-contrast CT head examination for acute finding.
--- NOTE | 2021-08-27 15:09 | ER ---
Nurse's Notes [facility] Name: Robbi Wallace Jr Age: 76 yrs Sex: Male : 1945 Arrival Date: 08/27/2021 Time: 12:39 Bed 2 Private MD: Silver Bridges T Diagnosis: Paresthesia of skin;Cerebral infarction, unspecified;Slurred speech Presentation: 08/27 12:51 Chief complaint: Patient states: numbness to tongue, left side of face and trouble aa5 speaking, pt states "I am having trouble speaking because my tongue feels numb". Coronavirus screen: At this time, the client does not indicate any symptoms associated with coronavirus-19. Ebola Screen: No symptoms or risks identified at this time. An acute neurological deficit is present. Pre-hospital glucose is not applicable to this patient. Initial Sepsis Screen: Does the patient meet any 2 criteria? No. Patient's initial sepsis screen is negative. Does the patient have a suspected source of infection? No. Patient's initial sepsis screen is negative. Risk Assessment: Do you want to hurt yourself or someone else? Patient reports no desire to harm self or others. Onset of symptoms was August 24, 2021. 12:51 Acuity: DANTE 2 aa5 12:51 Method Of Arrival: Ambulatory aa5 Triage Assessment: 13:35 The onset of the patients symptoms was August 25, 2021 at 12:00. jd3 13:36 Neuro: Reports numbness in tongue. 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 - Social history:: Smoking status: Patient denies any tobacco usage or history of. - Family history:: not pertinent. - Hospitalizations: : No recent hospitalization is reported. Screenin:34 Abuse screen: Denies threats or abuse. Nutritional screening: No deficits noted. jd3 Tuberculosis screening: No symptoms or risk factors identified. Fall Risk IV access (20 points). Ambulatory Aid- None/Bed Rest/Nurse Assist (0 pts). Gait- Normal/Bed Rest/Wheelchair (0 pts) Mental Status- Oriented to own ability (0 pts). Total Oconnor Fall Scale indicates No Risk (0-24 pts). Assessment: 13:31 VAN Scoring: Arm Drift: Patients demonstrates NO arm weakness. Patient is VAN Negative. jd3 Patient has been NPO before screening. The patient is alert, and able to follow commands. The patient exhibits slurred or garbled speech. Provider notified of the indication for Speech Therapy consult. The patient is not exhibiting difficulty speaking. The patient does not exhibit difficulty understanding words. The patient is able to swallow own secretions with no drooling or need for suction. Patient tolerated one teaspoon of water. No drooling, immediate coughing, gurgling, or clearing of the throat was noted. The patient tolerated 90mL of water. No drooling, immediate coughing, gurgling, or clearing of the throat was noted. The patient passed the bedside swallow screening. Oral medications may be given as ordered. Contact Physician for further diet orders. Provider notified of bedside swallow screening results: Xu Gautam MD. T-PA (Activase) Screening: Contraindications: Patient reports onset of signs and symptoms of stroke greater than 6 hours ago:. General: Appears in no apparent distress. comfortable, Behavior is calm, cooperative, appropriate for age, Reports "it feels like got a lidocaine shot in my tongue or something". Pain: Denies pain. Neuro: Sexton Agitation-Sedation Scale (RASS): 0 - Alert and Calm Level of Consciousness is awake, alert, obeys commands, Oriented to person, place, time, situation, Speech is slurred. Cardiovascular: Denies chest pain, Capillary refill < 3 seconds Patient's skin is warm and dry. Rhythm is sinus bradycardia. Respiratory: Airway is patent Respiratory effort is even, unlabored, Respiratory pattern is regular, symmetrical, Denies cough, shortness of breath. GI: No signs and/or symptoms were reported involving the gastrointestinal system. : No signs and/or symptoms were reported regarding the genitourinary system. EENT: No signs and/or symptoms were reported regarding the EENT system. Derm: Skin is intact, Skin is dry, Skin is normal, Skin temperature is warm. Musculoskeletal: Circulation, motion, and sensation intact. Range of motion: intact in all extremities. 14:27 Reassessment: Patient appears in no apparent distress at this time. Patient and/or jd3 family updated on plan of care and expected duration. Pain level reassessed. Patient is alert, oriented x 3, equal unlabored respirations, skin warm/dry/pink. 15:26 Reassessment: Patient appears in no apparent distress at this time. Patient and/or jd3 family updated on plan of care and expected duration. Pain level reassessed. Patient is alert, oriented x 3, equal unlabored respirations, skin warm/dry/pink. Patient denies pain at this time. Vital Signs: 12:51 BP 156 / 69; Pulse 52; Resp 18 S; Temp 98.2(O); Pulse Ox 98% on R/A; Weight 111.13 kg aa5 (R); Height 6 ft. 3 in. (190.50 cm) (R); 13:36 BP 131 / 65; Pulse 45; Resp 17 S; Pulse Ox 97% on R/A; jd3 14:27 BP 147 / 66; Pulse 45; Resp 18 S; Pulse Ox 97% on R/A; jd3 15:26 BP 150 / 74; Pulse 51; Resp 18 S; Pulse Ox 97% on R/A; jd3 12:51 Body Mass Index 30.62 (111.13 kg, 190.50 cm) aa5 NIH Stroke Scale Scores: 13:31 NIHSS Score: 1 jd3 ED Course: 12:39 Patient arrived in ED. am2 12:39 Silver Bridges MD is Private Physician. am2 12:49 Arm band placed on. aa5 12:53 Triage completed. aa5 12:53 Xu Gautam MD is Attending Physician. rn 12:57 Davis Groves RN is Primary Nurse. jd3 13:26 Stroke CXR 1 View In Process Unspecified. EDMS 13:35 Patient has correct armband on for positive identification. Placed in gown. Bed in low jd3 position. Call light in reach. Side rails up X2. Client placed on continuous cardiac and pulse oximetry monitoring. NIBP monitoring applied. telemetry monitor on. Pulse ox on. NIBP on. 14:20 CT Head Brain wo Cont In Process Unspecified. EDMS 14:20 Head angio In Process Unspecified. EDMS 15:08 Xu Gautam MD is Hospitalizing Provider. rn 19:55 Initial lab(s) drawn. Inserted saline lock: 20 gauge in right antecubital area, using tw5 aseptic technique. Blood collected. 20:29 No provider procedures requiring assistance completed. Patient admitted, IV remains in [address] Administered Medications: 15:24 Drug: Aspirin 325 mg Route: PO; jd3 17:21 Follow up: Response: No adverse reaction bp 15:24 Drug: foLIC Acid 1 mg Route: IVPB; Site: right antecubital; jd3 17:21 Follow up: IV Status: Completed infusion; IV Intake: 100ml bp Medication: 13:35 VIS not applicable for this client. [facility] Point of Care Testing: Blood Glucose: 13:45 Blood Glucose: 117 mg/dL; jd3 Ranges: Intake: 17:21 IV: 100ml; Total: 100ml. bp Outcome: 15:09 Decision to Hospitalize by Provider. rn 19:54 Admitted to Med/surg Report called to attempted to call report, nurse unavailable [facility] 20:49 Patient left the ED. lp1 NIH Stroke Scale - NIH Stroke Score Date: 08/27/2021 Time: 13:31 Total Score = 1 1a. Level of Consciousness (LOC) - 0(Alert) 1b. Level of Consciousness (LOC) (Month \\T\\ Age) - 0(Both) 1c. LOC Commands (Open \\T\\ Closes Eyes/Department Operations Manager) - 0(Both) 2. Best Gaze (Lateral Gaze Paresis) - 0(Normal) 3. Visual Field Loss - 0(No visual loss) 4. Facial Palsy - 0(Normal) 5a. Left Arm: Motor (10-second hold) - 0(No drift) 5b. Right Arm: Motor (10-second hold) - 0(No drift) 6a. Left Leg: Motor (5-second hold - always test supine) - 0(No drift) 6b. Right Leg: Motor (5-second hold - always test supine) - 0(No drift) 7. Limb Ataxia (finger/nose \\T\\ heel/stout - test with eyes open) - 0(Absent) 8. Sensory Loss (pinprick arms/legs/face) - 0(Normal) 9. Best Language: Aphasia (description/naming/reading) - 0(No aphasia) 10. Dysarthria (speech clarity - read or repeat words) - 1(Mild to Moderate) 11. Extinction and Inattention (visual/tactile/auditory/spatial/personal) - 0(No abnormality) Initials: jd3 Signatures: Dispatcher [employer] EDMS Xu Gautam MD MD rn Fatemeh Valdes RN RN aa5 Candida Nunez RN RN lp1 Bernadine Canales am2 Davis Groves RN RN jd3 Reed Cardona RN RN Catherine Amor 5 Sarah Gonzalez RN RN sm5 Corrections: (The following items were deleted from the chart) 12:51 12:49 PSHx: CABG; aa5 aa5 14:29 14:27 Pulse 45bpm; Resp 18bpm; Spontaneous; Pulse Ox 97% RA; jd3 jd3
--- NOTE | 2021-08-27 15:09 | EDPHYS ---
Physician Documentation [facility] Name: Robbi Wallace Jr Age: 76 yrs Sex: Male : 1945 Arrival Date: 08/27/2021 Time: 12:39 Bed 2 Private MD: Silver Bridges T ED Physician Xu Gautam HPI: 08/27 14:08 This 76 yrs old Male presents to ER via Ambulatory with complaints of S/S of Possible rn Stroke - onset 2-3 days, Numbness Of Face, Slurred Speech. 14:08 The patient's problem is reported as paresthesias, in left side of face, dysphasia, rn slurred speech. Onset: The symptoms/episode began/occurred 2 day(s) ago. Duration: This was a single incident, The episode is continuous. The symptoms are alleviated by nothing. The symptoms are aggravated by nothing. Associated signs and symptoms: Pertinent positives: numbness, Pertinent negatives: abdominal pain, chest pain, confusion, diaphoresis, seizure, shortness of breath, weakness. Severity of symptoms: At their worst the symptoms were mild in the emergency department the symptoms are unchanged. The patient has not experienced similar symptoms in the past. The patient has not recently seen a physician. Pt reports left facial numbness, onset of 2 days ago, constant episode, no trauma, + mild headache. Reports active prostate cancer, metastatic, but has not gone to brain as far as he knows. REports symptoms only for 2 days. No fever. NO weakness. Reports left facial numbness and thinks as a result, slurred speech.. 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 - Social history:: Smoking status: Patient denies any tobacco usage or history of. - Family history:: not pertinent. - Hospitalizations: : No recent hospitalization is reported. ROS: 14:08 Constitutional: Negative for fever, chills, and weight loss, Eyes: Negative for injury, rn pain, redness, and discharge, Neck: Negative for injury, pain, and swelling, Cardiovascular: Negative for chest pain, palpitations, and edema, Respiratory: Negative for shortness of breath, cough, wheezing, and pleuritic chest pain, Abdomen/GI: Negative for abdominal pain, nausea, vomiting, diarrhea, and constipation, Back: Negative for injury and pain, MS/Extremity: Negative for injury and deformity, Skin: Negative for injury, rash, and discoloration, Neuro: Negative for weakness, and seizure. Exam: 14:08 Constitutional: This is a well developed, well nourished patient who is awake, alert, rn and in no acute distress. Head/Face: Normocephalic, atraumatic. Eyes: Pupils equal round and reactive to light, extra-ocular motions intact. Periorbital areas with no swelling, redness, or edema. Cardiovascular: Regular rate and rhythm. No pulse deficits. Respiratory: No increased work of breathing, no retractions or nasal flaring. Abdomen/GI: soft, nontender Skin: Warm, dry MS/ Extremity: Pulses equal, no cyanosis. Neuro: Awake and alert, GCS 15, oriented to person, place, time, and situation. No facial droop or asymmetry. + left facial decreased sensation. + slurred speech. Motor strength 5/5 in all extremities. Cerebellar exam normal. Vital Signs: 12:51 BP 156 / 69; Pulse 52; Resp 18 S; Temp 98.2(O); Pulse Ox 98% on R/A; Weight 111.13 kg aa5 (R); Height 6 ft. 3 in. (190.50 cm) (R); 13:36 BP 131 / 65; Pulse 45; Resp 17 S; Pulse Ox 97% on R/A; jd3 14:27 BP 147 / 66; Pulse 45; Resp 18 S; Pulse Ox 97% on R/A; jd3 15:26 BP 150 / 74; Pulse 51; Resp 18 S; Pulse Ox 97% on R/A; jd3 12:51 Body Mass Index 30.62 (111.13 kg, 190.50 cm) aa5 NIH Stroke Scale Scores: 13:31 NIHSS Score: 1 jd3 MDM: 12:53 Patient medically screened. rn 15:07 Differential diagnosis: CVA, TIA, metabolic disorder. Differential diagnosis: rn metastases. Data reviewed: vital signs, nurses notes. Counseling: I had a detailed discussion with the patient and/or guardian regarding: the historical points, exam findings, and any diagnostic results supporting the discharge/admit diagnosis, lab results, radiology results, the need for further work-up and treatment in the hospital. Response to treatment: There is no appreciated change of the patient's symptoms at this time, and as a result, I will admit patient. Admission orders: after a detailed discussion of the patient's condition and case, the admit orders are written by me. ED course: No acute findings on CT or CTA, patient with constant left facial numbness, will admit for possible CVA and further w/u.. 08/27 12:56 Order name: Basic Metabolic Panel; Complete Time: 14: 08/27 12:56 Order name: CBC with Diff; Complete Time: 14: 08/27 12:56 Order name: Protime (+inr); Complete Time: 14: 08/27 12:56 Order name: Ptt, Activated; Complete Time: 14: 08/27 14:16 Order name: SARS-COV-2 RT PCR (Document "Date of Onset" if Symptomatic) 08/27 16:43 Order name: T4 Free [facility] 08/27 12:56 Order name: CT Head Brain wo Cont; Complete Time: 15:06 08/27 12:56 Order name: Stroke CXR 1 View; Complete Time: 14: 08/27 16:43 Order name: Thyroid Stimulating Hormone [facility] 08/27 16:43 Order name: Urinalysis [facility] 08/27 16:43 Order name: Basic Metabolic Panel [facility] 08/27 16:43 Order name: Basic Metabolic Panel [facility] 08/27 16:43 Order name: CBC with Automated Diff [facility] 08/27 16:43 Order name: CBC with Automated Diff [facility] 08/27 12:56 Order name: EKG; Complete Time: 12:57 08/27 12:56 Order name: Accucheck; Complete Time: 13:30 rn 08/27 12:56 Order name: Cardiac monitoring; Complete Time: 13:30 08/27 12:56 Order name: EKG - Nurse/Tech; Complete Time: 13:31 08/27 12:56 Order name: IV Saline Lock; Complete Time: 13:31 08/27 12:56 Order name: Labs collected and sent; Complete Time: 13:08/27 12:56 Order name: NPO; Complete Time: 13:31 rn 08/27 12:56 Order name: O2 Per Protocol; Complete Time: 13:31 rn 08/27 12:56 Order name: O2 Sat Monitoring; Complete Time: 13:31 rn 08/27 12:57 Order name: CT Head Angio rn 08/27 13:03 Order name: Head angio; Complete Time: 15:06 EDMS 08/27 16:38 Order name: CONS Physician Consult [facility] 08/27 16:43 Order name: NPO [facility] 08/27 19:14 Order name: MRI [facility] 08/27 12:56 Order name: Stroke Swallow Screen; Complete Time: 13:31 rn Administered Medications: 15:24 Drug: Aspirin 325 mg Route: PO; jd3 17:21 Follow up: Response: No adverse reaction bp 15:24 Drug: foLIC Acid 1 mg Route: IVPB; Site: right antecubital; jd3 17:21 Follow up: IV Status: Completed infusion; IV Intake: 100ml bp Point of Care Testing: Blood Glucose: 13:45 Blood Glucose: 117 mg/dL; jd3 Ranges: Critical Glucose Levels:Adult <50 mg/dl or >400 mg/dl <40 mg/dl or >180 mg/dl Disposition Summary: 08/27/21 15:09 Hospitalization Ordered Hospitalization Status: Observation rn Provider: Xu Gautam [facility]n [facility] rn Condition: Stable rn Problem: new rn Symptoms: are unchanged rn Bed/Room Type: Standard rn Room Assignment: 232(08/27/21 19:17) Diagnosis - Paresthesia of skin rn - Cerebral infarction, unspecified rn - Slurred speech rn Forms: - Medication Reconciliation Form rn - SBAR form rn NIH Stroke Scale - NIH Stroke Score Date: 08/27/2021 Time: : Total Score = 1 1a. Level of Consciousness (LOC) - 0(Alert) 1b. Level of Consciousness (LOC) (Month \\T\\ Age) - 0(Both) 1c. LOC Commands (Open \\T\\ Closes Eyes/Crusher Tender) - 0(Both) 2. Best Gaze (Lateral Gaze Paresis) - 0(Normal) 3. Visual Field Loss - 0(No visual loss) 4. Facial Palsy - 0(Normal) 5a. Left Arm: Motor (10-second hold) - 0(No drift) 5b. Right Arm: Motor (10-second hold) - 0(No drift) 6a. Left Leg: Motor (5-second hold - always test supine) - 0(No drift) 6b. Right Leg: Motor (5-second hold - always test supine) - 0(No drift) 7. Limb Ataxia (finger/nose \\T\\ heel/stout - test with eyes open) - 0(Absent) 8. Sensory Loss (pinprick arms/legs/face) - 0(Normal) 9. Best Language: Aphasia (description/naming/reading) - 0(No aphasia) 10. Dysarthria (speech clarity - read or repeat words) - 1(Mild to Moderate) 11. Extinction and Inattention (visual/tactile/auditory/spatial/personal) - 0(No abnormality) Initials: [email or web address] Signatures: Dispatcher [employer] Concha Jones RN RN dw Nieto, Roman, MD MD rn Calderon, Audri, RN RN aa5 Davies, Jonathon, RN RN jd3 Peltier, Brian RN bp Corrections: (The following items were deleted from the chart) 12:51 12:49 PSHx: CABG; aa5 aa5 19:17 15:09 rn sukh
[2021-08-27] MEDS ORDERED: ASPIRIN 325 MG TAB ONE (15:23)
[2021-08-27] MEDS ORDERED: FOLIC ACID 5 MG/ML VIAL ONE (15:24)
[2021-08-27] MEDS ORDERED: ONDANSETRON 4 MG/2 ML VIAL IV PRN (16:38)
[2021-08-27] MEDS ORDERED: HYDROCODONE/APAP 5/325 MG TAB PO PRN (16:41)
--- NOTE | 2021-08-27 16:47 | P.HP ---
Certification for Inpatient Patient admitted to: Observation With expected LOS: <2 Midnights Patient will require the following post-hospital care: None Practitioner: I am a practitioner with admitting privileges, knowledge of patient current condition, hospital course, and medical plan of care. Services: Services provided to patient in accordance with Admission requirements found in Title 42 Section 412.3 of the Code of Federal Regulations Patient History Date of Service: 08/27/21 Reason for admission: Left facial Numbness and Slurred speech History of Present Illness: Patient is a 76-year-old with a past medical history significant for hyperlipidemia, hypertension, prostate cancer with mets to spine and bones, CA, CAD who presents with complaint of left-sided facial numbness and slurred speech. Patient reported that he noticed numbness tingling in his tongue and around his lips 2 days ago followed by left facial numbness and tingling. Nu nt also reports that he noted that his speech was slurred. Patient denies any other signs or symptoms. Symptoms are aggravated or relieved by nothing. Patient decided to present to the hospital for medical evaluation. Allergies No Known Drug Allergies Allergy (Verified 08/27/21 22:12) Unknown Home medications list reviewed: Yes Home Medications: Amlodipine Besylate/Benazepril [Amlodipine-Benazepril 10-40 mg] 1 each PO DAILY 08/27/21 Bicalutamide 50 mg PO DAILY 08/27/21 Metoprolol Tartrate 50 mg PO BID 08/27/21 Rosuvastatin Calcium 40 mg PO BEDTIME 08/27/21 - Past Medical/Surgical History -: CAD -: CA -: HTN -: Prostrate Cancer Past Surgical History: Reviewed- Non-Contributory - Family History Father -: Stroke Mother -: Hypertension, Stroke - Social History Smoking Status: Never smoker Alcohol use: Yes CD- Drugs: No Place of Residence: Home Review of Systems General: Unremarkable Eyes: Unremarkable ENT: Other (Slurred speech) Respiratory: Unremarkable Cardiovascular: Unremarkable Gastrointestinal: Unremarkable Genitourinary: Unremarkable Musculoskeletal: Unremarkable Neurological: Numbness, Other (Left lip\tongue numbness and tingling ) Lymphatics: Unremarkable Physical Examination - Physical Exam General: Alert, Oriented x3, Cooperative HEENT: PERRLA Neck: Supple, 2+ carotid pulse no bruit, JVD not distended Respiratory: Clear to auscultation bilaterally, Normal air movement Cardiovascular: No edema, Normal pulses, Regular rate/rhythm Capillary refill: <2 Seconds Gastrointestinal: Normal bowel sounds, Soft and benign Musculoskeletal: No clubbing, No swelling, No contractures Integumentary: No breakdown, No significant lesion, No tenderness/swelling Neurological: Abnormal speech Lymphatics: No axilla or inguinal lymphadenopathy - Studies Laboratory Data (last 24 hrs) 08/27/21 13:11: PT 10.8, INR 0.98, APTT 27.3 08/27/21 13:11: WBC 4.5, Hgb 13.9, Hct 39.8, Plt Count 136 L 08/27/21 13:11: Sodium 138, Potassium 4.0, BUN 11, Creatinine 0.90, Glucose 117 H Assessment and Plan - Plan --TIA. MRI brain does not indicate any acute intracranial abnormality. Neurology consulted. Continue aspirin. --Slurred speech. Speech therapist consult initiated. Continue supportive care. --Hypertension. Unstable. Continue home medications. --Hyperlipidemia. Continue home medication. --Class I obesity. Likely secondary to excess calories intake. Patient counseled on weight reduction, diet and exercise therapy. --Paresthesia of Skin. Likely secondary to TIA. Continue supportive care. --Prostate cancer. With Mets to the bone and spine. Patient follow-up with outpatient oncologist. Continue Bicalutamide. Continue Supportive care --Hx of CAD and CA. Continue Aspirin and statin --DVT prophylaxis with heparin subQ.. Discharge Plan: Home Plan to discharge in: 48 Hours - Advance Directives Does patient have a Living Will: No Does patient have a Durable POA for Healthcare: No - Code Status/Comfort Care Code Status Assessed: Yes Code Status: Full Code Physician Review: Patient Assessed, Agree with Above Assessment and Plan Critical Care: No
[2021-08-27] MEDS: ASPIRIN 81 MG CHEWABLE TABLET PO SCH (17:00)
[2021-08-27] MEDS: D5 0.45 NS 1,000 ML IV SCH ×2 (17:00→22:34)
[2021-08-27 17:28] LABS: Thyroid Stimulating Hormone 2.33 uIU/mL (0.360-3.740)
[2021-08-27] MEDS ORDERED: D5 0.45 NS 1,000 ML IV ONE (17:38)
--- NOTE | 2021-08-27 19:12 | RAD REPORT ---
EXAM DESCRIPTION: MRI - Brain Wo Cont - 08/27/2021 5:54 pm CLINICAL HISTORY: R O CVA COMPARISON: No comparisons TECHNIQUE: Sagittal T1-weighted images were obtained along with axial PD, heavily T2-weighted and T2 -FLAIR images. Axial DWI and ADC mapping sequences were also obtained along with coronal heavily T2-w eighted images. FINDINGS: No intracranial hemorrhage, mass or acute infarction. There is no edema or shift of midlin e structures. No extra-axial fluid collections. Fink-matter/white matter junction is preserved. Signa l voids are seen as a normal finding in the major intracranial vessels. Atrophy changes are present w ith ventricles in proportion to volume loss. Hyperintense T2/IR signal foci are seen in the cerebral white matter. These are mostly periventricular in location and many are oriented perpendicular to the ventricles. No brain parenchymal findings suspicious for metastatic disease. Punctate focus left-tomas e dean likely chronic ischemic change. No cranial vault metastatic disease suspected. No sella or supra sella abnormality. No globe or orbital content abnormality seen. Mastoid air cells and paranasal sinuses are clear. IMPRESSION: No acute infarction identifiable. No hemorrhage, mass or acute intracranial finding iden tified. Patient has cerebral white matter signal abnormalities that are typically chronic ischemic change. Ma ny of these are periventricular and oriented perpendicular to the ventricles. This is a pattern that can be seen with MS or other forms of demyelinization.
[2021-08-28 00:01] LABS: Urine Appearance Clear (Clear); Urine Bilirubin Negative (Negative); Urine Blood Negative (Negative); Urine Color Yellow (Yellow); Urine Glucose Negative (Negative); Urine Protein Negative (Negative); Urine Specific Gravity 1.015 (1.005-1.030); Urine Urobilinogen 0.2 mg/dL (0.2-1.0); Urine pH 5.5 (5.0-7.0)
[2021-08-28 00:02] LABS: Urine Microscopic Reflex NO UMIC
[2021-08-28 00:16] VITALS: BMI 30.6
[2021-08-28 04:28] LABS: Absolute Lymphocytes (CBC) 0.6 K/uL (0.7-4.9); Hematocrit 35.2 % (39.6-49.0); Lymphocytes % 14.2 % (15.3-44.8); MPV 8.8 fL (7.6-11.3); RBC Red Blood Cell Count 3.95 M/uL (4.33-5.43)
[2021-08-28 04:35] LABS: Potassium 3.6 mmol/L (3.5-5.1)
[2021-08-28 05:18] LABS: Blood Morphology Comment NOT SEEN (NOT SEEN); Platelet Estimate ADEQ
[2021-08-28 06:00] LABS: Phosphorus 2.6 mg/dL (2.5-4.9)
[2021-08-28] MEDS: D5 0.45 NS 1,000 ML IV SCH ×2 (06:20→10:05)
[2021-08-28] MEDS ORDERED: POTASSIUM CL SA 10 MEQ TAB PO ONE (09:00)
[2021-08-28] MEDS: ASPIRIN 81 MG CHEWABLE TABLET PO SCH (09:57)
[2021-08-28] MEDS: ENOXAPARIN 40 MG/0.4 ML SQ SCH (09:58)
[2021-08-28] MEDS: ACETAMINOPHEN 500 MG TAB PO PRN ×2 (09:58→17:23)
--- NOTE | 2021-08-28 10:58 | P.PN ---
Subjective Date of Service: 08/28/21 Chief Complaint: Left facial Numbness and Slurred speech Subjective: No new changes (See persistent left facial numbness) Physical Examination - Vital Signs Temperature: 97.7 F Blood Pressure: 131/66 Pulse: 55 Respirations: 18 Pulse Ox (%): 96 - Physical Exam General: Alert, In no apparent distress, Oriented x3 HEENT: Atraumatic, Normocephalic, PERRLA Neck: Supple, 2+ carotid pulse no bruit, JVD not distended Respiratory: Clear to auscultation bilaterally, Normal air movement Cardiovascular: No edema, Normal pulses, Regular rate/rhythm, Normal S1 S2 Gastrointestinal: Normal bowel sounds, Soft and benign, Non-distended, W/out succussion splash Musculoskeletal: No clubbing, No swelling, No contractures Integumentary: No rashes, No breakdown, No significant lesion Neurological: Other (left facial numbness, slgiht deviation of tongue muscles to right , ), Abnormal sensation External genitalia: No edema, No lesions - Studies Laboratory Data (last 24 hrs) 08/27/21 13:11: PT 10.8, INR 0.98, APTT 27.3 08/27/21 13:11: WBC 4.5, Hgb 13.9, Hct 39.8, Plt Count 136 L 08/27/21 13:11: Sodium 138, Potassium 4.0, BUN 11, Creatinine 0.90, Glucose 117 H Assessment And Plan Physician Review: Patient Assessed, Agree with Above Assessment and Plan Physician Review Additional Text: MRI brain - intracranial hemorrhage, mass or acute infarction. There is no edema or shift of midline structures. No extra-axial fluid collections. Fink-matter/white matter j unction is preserved. Signal voids are seen as a normal finding in the major intracranial vessels. Atrophy changes are present with ventricles in proportion to volume loss. Hyperintense T2/IR signal foci are seen in the cerebral white matter. These are mostly periventricular in location and many are oriented perpendicular to the ventricles. No brain parenchymal findings suspicious for metastatic disease. Punctate focus left-side dean likely chronic ischemic change. No cranial vault metastatic disease suspected. No sella or supra sella abnormality. No globe or orbital content abnormality seen. Mastoid air cells and paranasal sinuses are clear. IMPRESSION: No acute infarction identifiable. No hemorrhage, mass or acute intracranial finding identified. Patient has cerebral white matter signal abnormalities that are typically chronic ischemic change. Many of these are periventricular and oriented perpendicular .This is a pattern that can be seen with MS or other forms of demyelinization. Time Spent Managing PTS Care (In Minutes): 35
--- NOTE | 2021-08-28 12:34 | EKG ---
Test Date: 2021-08-27 Test Time: 13:20:47 [employer] Supervisor: JONAS MEASUREMENT RESULTS: Intervals: Rate: 47 UT: 216 QRSD: 108 QT: 500 QTc: [address] [place]: P: 33 UT: 216 QRS: -51 T: 52 INTERPRETIVE STATEMENTS: Sinus bradycardia with 1st degree AV block Left anterior fascicular block Cannot rule out Anterior infarct, age undetermined Abnormal ECG Compared to ECG 09/10/2015 11:15:08 First degree AV block now present Myocardial infarct finding now present Electronically Signed On 08-28-21 12:31:44 CDT by Jus Gentile
[2021-08-28] MEDS: METHYLPRED NA SUC 1,000 MG in NA CHLORIDE 0.9% 100 ML IV SCH (13:21)
[2021-08-28] MEDS ORDERED: AMLODIPINE 10 MG TAB PO ONE (16:52)
[2021-08-28] MEDS: ROSUVASTATIN 10 MG TAB PO SCH (20:51)
[2021-08-28] MEDS: METOPROLOL TAR 50 MG TAB PO SCH (20:51)
[2021-08-28] MEDS: MELATONIN 5 MG TABLET PO PRN (20:51)
[2021-08-29 07:25] LABS: Albumin 3.7 g/dL (3.4-5.0); Bilirubin Total 0.4 mg/dL (0.2-1.0); Potassium 4.1 mmol/L (3.5-5.1); Protein, Total 7.2 g/dL (6.4-8.2)
[2021-08-29] MEDS ORDERED: AMLODIPINE 10 MG TAB PO SCH (09:00)
[2021-08-29] MEDS: METOPROLOL TAR 50 MG TAB PO SCH ×2 (09:00→21:24)
[2021-08-29] MEDS: METHYLPRED NA SUC 1,000 MG in NA CHLORIDE 0.9% 100 ML IV SCH (10:52)
[2021-08-29] MEDS: ENOXAPARIN 40 MG/0.4 ML SQ SCH (10:52)
[2021-08-29] MEDS: AMLODIPINE 10 MG TAB PO SCH (10:53)
[2021-08-29] MEDS: ASPIRIN 81 MG CHEWABLE TABLET PO SCH (10:53)
[2021-08-29] MEDS: BENAZEPRIL 20 MG TAB PO SCH (10:54)
[2021-08-29] MEDS: ACETAMINOPHEN 500 MG TAB PO PRN (11:13)
[2021-08-29 11:16] LABS: CSF Glucose 127 mg/dL (40-70)
[2021-08-29 11:21] LABS: Appearance CLEAR (CLEAR); Body Fluid Source CSF; Color of fluid Colorless (COLORLESS)
[2021-08-29 11:22] LABS: Body Fluid WBC 0 /mm^3
--- NOTE | 2021-08-29 13:50 | RAD REPORT ---
EXAM DESCRIPTION: RAD - Lumbar Puncture For Dx - 08/29/2021 10:04 am CLINICAL HISTORY: Workup for multiple sclerosis COMPARISON: None. TECHNIQUE: The procedure, risks and alternatives to the procedure were discussed with the patient in detail. After answering all questions, both oral and written consent were obtained. Time-out procedu re was performed. The patient was placed in an oblique prone position on the fluoroscopic table. The skin of the lower back was prepped and draped in the usual sterile fashion. After anesthetizing the skin and deeper sof t tissues with 1% lidocaine, a 22 gauge needle was advanced into the thecal sac at the L2-3 level. At the conclusion of the procedure the needle was withdrawn and a sterile bandage placed over the pun cture site. The patient tolerated the procedure well without immediate complications. Post-procedure care and precaution instructions were discussed with the patient before the LP procedure. IMPRESSION: Successful fluoroscopic guided lumbar puncture. All obtained fluid was sent to the lab f or studies requested by the referring physician.
--- NOTE | 2021-08-29 14:38 | P.PN ---
Subjective Date of Service: 08/29/21 Chief Complaint: Left facial Numbness and Slurred speech Subjective: No C/O voiced (States slightly improving facial numbness Complain of insomnia and indigestion last night) Physical Examination - Vital Signs Temperature: 97.3 F Blood Pressure: 145/67 Pulse: 58 Respirations: 17 Pulse Ox (%): 98 Assessment And Plan Physician Review: Patient Assessed, Agree with Above Assessment and Plan Physician Review Additional Text: MRI brain - intracranial hemorrhage, mass or acute infarction. There is no edema or shift of midline structures. No extra-axial fluid collections. Fink-matter/white matter junction is preserved. Signal voids are seen as a normal finding in the major intracranial vessels. Atrophy changes are present with ventricles in proportion to volume loss. Hyperintense T2/IR signal foci are seen in the cerebral white matter. These are mostly periventricular in location and many are oriented perpendicular to the ventricles. No brain parenchymal findings suspicious for metastatic disease. Punctate focus left-side dean likely chronic ischemic change. No cranial vault metastatic disease suspected. No sella or supra sella abnormality. No globe or orbital content abnormality seen. Mastoid air cells and paranasal sinuses are clear. IMPRESSION: No acute infarction identifiable. No hemorrhage, mass or acute intracranial finding identified. Patient has cerebral white matter signal abnormalities that are typically chronic ischemic change. Many of these are periventricular and oriented perpendicular .This is a pattern that can be seen with MS or other forms of demyelinization. Impression Left facial numbness Presumed multiple sclerosis Hypertension History of prostate cancer with sacral mets post radiation/chemoon hormonal therapy Plan Continue IV Solu-Medrol 1 g daily for 3 days Neurology consult appreciated Lumbar puncture done today, follow CSF analysis When completed IV steroids dosing in a.m., plan for discharge with low-dose and follow-up with neurology as outpatient Add PPI As needed anxiolytic 08/29/21 14:36
[2021-08-29] MEDS ORDERED: GLUCAGON 1 MG/VIAL IM PRN (14:40)
[2021-08-29] MEDS ORDERED: LORAZEPAM 1 MG TABLET PO PRN (14:41)
[2021-08-29] MEDS ORDERED: D10W 250 ML BAG IV PRN (14:48)
[2021-08-29] MEDS: INSULIN GLARGINE 100 UNIT/ML SQ SCH (16:35)
[2021-08-29] MEDS: INSULIN -REGULAR HUMAN 50 UNIT/0.5 ML ML SQ SCH ×2 (16:42→21:25)
[2021-08-29] MEDS ORDERED: MAGNES/ALUMIN/SIMET 30ML UCUP PO ONE (19:44)
[2021-08-29] MEDS: ROSUVASTATIN 10 MG TAB PO SCH (21:23)
[2021-08-29] MEDS: FAMOTIDINE 20 MG TAB PO SCH (21:24)
[2021-08-29] MEDS: MELATONIN 5 MG TABLET PO PRN (21:24)
--- NOTE | 2021-08-29 22:19 | CON ---
Reason For Consultation: Consultation called because of possible stroke. History Of Present Illness: Mr. 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 At the time he came in, it was well beyond the window for tissue plasminogen activato r and his deficit consisted of left facial numbness and improving slurred speech. He was evaluated b y head CT scan in the emergency room and found the study to be negative. A CT angiogram of his head showed distal internal carotid artery arthrosclerotic calcification present without significant steno sis and this is in each internal carotid. A subsequent brain MRI identified atrophy with ventricular size increase in proportion with T2 and IR signal foci in the cerebral white matter, mostly perpendi cular to the ventricles, which were more suspicious for a demyelinating condition than acute ischemic stroke. The patient did have findings also consistent with chronic small vessel ischemic disease. As a result of the possibility of multiple sclerosis, a lumbar puncture was ordered and that was done today. He has also received 1 g of steroids daily now, this is his second day and he has one more d ay of 3 days planned. The patient does say in the interview today that his left facial numbness has improved and slurred speech improved as well as dysphagia that has largely resolved. Past Medical History: As noted. Allergies: NO KNOWN DRUG ALLERGIES. Past Surgical History: Multiple cardiac stents. Social History: No alcohol, tobacco, or IV drug use. The patient lives with family. Current Medications: Hostetter 5/325 every 6 hours as needed, Norvasc 10 mg daily, aspirin 81 mg daily, Lotensin 40 mg daily, Lovenox 40 mg subcutaneous daily, Pepcid 20 mg daily. He takes SEMGLEE insulin 15 units subcutaneously daily, melatonin 3 mg at night, and Solu-Medrol 1 g daily now for 3 days. A lso, Crestor 40 mg at bedtime. Review of Systems: Aside from mentioned above, he denies any recent fevers, chills, nausea, vomiting, myalgias, arthralg ias, rash, headache, weight change. Physical Examination: Vital Signs: Blood pressure 144/66, pulse 63, respiratory rate 70, temperature 97.6, oxygen saturati on 97%-100% on room air. General: Mr. Wallace is resting in bed. Family is in the room. He is in no acute distress. HEENT: He is normocephalic, atraumatic. Sclerae anicteric. Oropharynx pink and moist. Neck: Supple. Chest: Clear. Heart: Regular. Extremities: No clubbing, cyanosis, or edema. Neurological: He has a slight decrease to light touch and temperature over the left V1, V2, V3 of th e face compared to the right side, otherwise intact sensation over the arms and legs bilaterally to l ight touch and pinprick. His strength is symmetric and 5+/5 in upper and lower extremities. Coordin ation intact of lower extremities. Reflexes symmetric. He will be ambulated by Physical Therapy wit h gait belt. Laboratory Studies: Complete blood count with differential shows slightly decreased hemoglobin of 12 .8, platelets 140. INR 0.98. Chemistries shows glucose ranged from 108-240. AST, ALT, alkaline alicia sphatase essentially unremarkable. Rest of basic metabolic panel unremarkable. TSH 2.33. Urinalysi s unremarkable. His lumbar puncture shows glucose 127, protein 59, WBC 0, RBCs 5. There is pending MS workup. COVID-19 test is negative. Assessment: Mr. Wallace is a 76-year-old patient with multiple risk factors for cerebrovascular and coronary artery disease, who has had prior myocardial infarction, who comes in with possible stroke. MRI is suggestive of small vessel ischemic disease and demyelinating condition such as multiple scle rosis. Plan: 1.Continue with aggressive management of dyslipidemia and hypertension. 2.We will follow up on number of protein function studies. 3.Continue 1 more day of intravenous Solu-Medrol. 4.After the patient's discharge, he may follow up in Dr. Ramos's office. If the studies are posi tive for multiple sclerosis, we will consider course modifying medication for MS. The patient may be discharged home in the morning. KELSI/MODL Voice ID: [id number] Report ID: [id number]
[2021-08-30 05:52] LABS: Absolute Lymphocytes (CBC) 0.3 K/uL (0.7-4.9); Hematocrit 37.5 % (39.6-49.0); Lymphocytes % 2.4 % (15.3-44.8); RBC Red Blood Cell Count 4.16 M/uL (4.33-5.43)
[2021-08-30 06:08] LABS: Albumin 3.6 g/dL (3.4-5.0); Bilirubin Total 0.4 mg/dL (0.2-1.0); Potassium 4.1 mmol/L (3.5-5.1); Protein, Total 6.6 g/dL (6.4-8.2)
[2021-08-30] MEDS: ENOXAPARIN 40 MG/0.4 ML SQ SCH (09:33)
[2021-08-30] MEDS: METHYLPRED NA SUC 1,000 MG in NA CHLORIDE 0.9% 100 ML IV SCH (09:33)
[2021-08-30] MEDS: AMLODIPINE 10 MG TAB PO SCH (09:34)
[2021-08-30] MEDS: FAMOTIDINE 20 MG TAB PO SCH (09:34)
[2021-08-30] MEDS: ASPIRIN 81 MG CHEWABLE TABLET PO SCH (09:34)
[2021-08-30] MEDS: BENAZEPRIL 20 MG TAB PO SCH (09:34)
[2021-08-30] MEDS: METOPROLOL TAR 50 MG TAB PO SCH (09:34)
[2021-08-30] MEDS: INSULIN -REGULAR HUMAN 50 UNIT/0.5 ML ML SQ SCH ×2 (09:35→11:30)
[2021-08-30] MEDS: INSULIN GLARGINE 100 UNIT/ML SQ SCH (09:35)
[2021-08-30 09:46] LABS: White Blood Cell Scan OK (OK)
[2021-08-30 09:47] LABS: Blood Morphology Comment NOT SEEN (NOT SEEN); Platelet Estimate ADEQ
[2021-08-30 13:20] VITALS: BP 126/61; TEMP 96.9
--- NOTE | 2021-08-30 13:43 | P.DS ---
Admission Date: 08/27/21 Discharge Date: 08/30/21 Disposition: ROUTINE DISCHARGE Discharge Condition: FAIR Reason for Admission: Left facial Numbness and Slurred speech Brief History of Present Illness: istory of Present Illness: Patient is a 76-year-old with a past medical history significant for hyperlipidemia, hypertension, prostate cancer with mets to spine and bones, [place], CAD who presents with complaint of left-sided facial numbness and slurred speech. Patient reported that he noticed numbness tingling in his tongue and around his lips 2 days ago followed by left facial numbness and tingling. Patiwillie nt also reports that he noted that his speech was slurred. Patient denies any other signs or symptoms. Symptoms are aggravated or relieved by nothing. Patient decided to present to the hospital for medical evaluation. Allergies No Known Drug Allergies Allergy (Verified 08/27/21 22:12) Unknown Home medications list reviewed: Yes Home Medications: Amlodipine Besylate/Benazepril [Amlodipine-Benazepril 10-40 mg] 1 each PO DAILY 08/27/21 Bicalutamide 50 mg PO DAILY 08/27/21 Metoprolol Tartrate 50 mg PO BID 08/27/21 Rosuvastatin Calcium 40 mg PO BEDTIME 08/27/21 Hospital Course: Hospital course Patient with past medical history of hypertension, prostate cancer on hormonal therapy admitted for new onset left facial numbness with no asymmetrical weakness. Patient had an MRI with findings of white matter ischemic changes abating the vertigo orientation worrisome for demyelinating disease such as multiple sclerosis. Patient was started on high-dose prednisone/Solu-Medrol 1 g daily for 3 days. His facial numbness significantly improved with self-reported recovery of nearly 90% of sensation. He had an LP done on day 2 of therapy and fluid sent for analysis still pending. Patient will be discharged home today on low-dose steroid for the next 7 days. He was evaluated by neurologyDr. Ramos. He will follow-up with Dr. Ramos in 5 to 7 days for review of his pending CSF analysis. He was managed for presumed multiple sclerosis - Physical Exam General: Alert, In no apparent distress, Oriented x3 HEENT: Atraumatic, Normocephalic, PERRLA Neck: Supple, 2+ carotid pulse no bruit, JVD not distended Respiratory: Clear to auscultation bilaterally, Normal air movement Cardiovascular: No edema, Normal pulses, Regular rate/rhythm, Normal S1 S2 Gastrointestinal: Normal bowel sounds, Soft and benign, Non-distended, W/out succussion splash Musculoskeletal: No clubbing, No swelling, No contractures Integumentary: No rashes, No breakdown, No significant lesion Neurological: Other (left facial numbness, slgiht deviation of tongue muscles to right , ), Abnormal sensation External genitalia: No edema, No lesions Significant imaging study MRI brain - No intracranial hemorrhage, mass or acute infarction. There is no edema or shift of midline structures. No extra-axial fluid collections. Fink-matter/white matter junction is preserved. Signal voids are seen as a normal finding in the major intracranial vessels. Atrophy changes are present with ventricles in proportion to volume loss. Hyperintense T2/IR signal foci are seen in the cerebral white matter. These are mostly periventricular in location and many are oriented perpendicular to the ventricles. No brain parenchymal findings suspicious for metastatic disease. Punctate focus left-side dean likely chronic ischemic change. No cranial vault metastatic disease suspected. No sella or supra sella abnormality. No globe or orbital content abnormality seen. Mastoid air cells and paranasal sinuses are clear. IMPRESSION: No acute infarction identifiable. No hemorrhage, mass or acute intracranial finding identified. Patient has cerebral white matter signal abnormalities that are typically chronic ischemic change. Many of these are periventricular and oriented perpendicular .This is a pattern that can be seen with MS or other forms of demyelinization. Vital Signs/Physical Exam: Temp Pulse Resp BP Pulse Ox 96.9 F 55 15 126/61 98 08/30/21 12:00 08/30/21 12:00 08/30/21 12:00 08/30/21 12:00 08/30/21 12:00 Laboratory Data at Discharge: WBC 13.4 K/uL (4.3-10.9) H D 08/30/21 05:15 Hgb 13.2 g/dL (13.6-17.9) L 08/30/21 05:15 Hct 37.5 % (39.6-49.0) L 08/30/21 05:15 Plt Count 158 K/uL (152-406) 08/30/21 05:15 PT 10.8 SECONDS (9.5-12.5) 08/27/21 13:11 INR 0.98 08/27/21 13:11 APTT 27.3 SECONDS (24.3-36.9) 08/27/21 13:11 Sodium 138 mmol/L (136-145) 08/30/21 05:15 Potassium 4.1 mmol/L (3.5-5.1) 08/30/21 05:15 BUN 27 mg/dL (7-18) H 08/30/21 05:15 Creatinine 1.03 mg/dL (0.55-1.3) 08/30/21 05:15 Glucose 161 mg/dL (74-106) H 08/30/21 05:15 Phosphorus 2.6 mg/dL (2.5-4.9) 08/28/21 03:49 Phosphorus Cancelled 08/28/21 03:49 Magnesium 2.0 mg/dL (1.8-2.4) 08/28/21 03:49 Magnesium Cancelled 08/28/21 03:49 Total Bilirubin 0.4 mg/dL (0.2-1.0) 08/30/21 05:15 AST 12 U/L (15-37) L 08/30/21 05:15 ALT 25 U/L (12-78) 08/30/21 05:15 Alkaline Phosphatase 45 U/L (45-117) 08/30/21 05:15 Home Medications: Amlodipine Besylate/Benazepril [Amlodipine-Benazepril 10-40 mg] 1 each PO DAILY 08/27/21 Bicalutamide 50 mg PO DAILY 08/27/21 Metoprolol Tartrate 50 mg PO BID 08/27/21 Rosuvastatin Calcium 40 mg PO BEDTIME 08/27/21 Famotidine [Pepcid*] 20 mg PO BID #60 tab 08/30/21 predniSONE [Prednisone] 20 mg PO DAILY #7 tablet 08/30/21 New Medications: Famotidine [Pepcid*] 20 mg PO BID #60 tab predniSONE [Prednisone] 20 mg PO DAILY #7 tablet Diet: Low sodium Activity: Ad artemio Followup: Bill Ramos MD [ASSOCIATE-ACTIVE - CAN ADMIT] - Silver Bridges MD [Primary Care Provider] - Time spent managing pt's care (in minutes): 35
[2021-08-30 13:58] VITALS: O2SAT 98
[2021-09-01 17:27] LABS: Albumin, (SPE) 4.3 g/dL (3.8-4.8); Alpha-1-Globulins 0.3 g/dL (0.2-0.3); Alpha-2-Globulins 0.7 g/dL (0.5-0.9); Gamma Globulins 1.2 g/dL (0.8-1.7); INTERPRETATION REPORT
[2021-09-12 13:47] LABS: BETA A 40 5164 pg/mL; BETA A 42 1265 pg/mL; BETA A 42/40 RATIO 0.24
== END 2021-08-30 14:10 | disposition home or self-care (01) | DRG 60 ==
LOC: ER 12:36 → ERHOLD 16:35 → 2ND 19:47
PROVIDERS: ADMIT Internal Medicine; ATTEND Internal Medicine
DX: G35 Multiple sclerosis (principal); E78.5 Hyperlipidemia, unspecified; I10 Essential (primary) hypertension; I25.10 Atherosclerotic heart disease of native coronary artery without angina pectoris; I25.2 Old myocardial infarction; Z95.5 Presence of coronary angioplasty implant and graft; Z85.46 Personal history of malignant neoplasm of prostate; Z85.830 Personal history of malignant neoplasm of bone; Z79.899 Other long term (current) drug therapy; E66.9 Obesity, unspecified; Z68.30 Body mass index [BMI] 30.0-30.9, adult; Z20.822 Contact with and (suspected) exposure to COVID-19
CPT/HCPCS: 36415; 70450; 70496; 70551; 71045; 77003; 80048; 80053; 81003; 82542; 82945; 82947; 83735; 83873; 84100; 84157; 84165; 84166; 84439; 84443; 85025; 85610; 85730; 86592; 87070; 89050; 92610; 93005; 96365; 96366; 99285; J1650; J1815; J2930; J7799; Q9967; U0003

== ENCOUNTER 2021-12-12 10:27 | Emergency (ER) | payer OTHER ==
--- OUTSIDE RECORDS SUMMARY | 2021-12-12 10:31 | XMS REPORT | Continuity of Care Document ---
:1945 Author Organization [facility] Address [address] [place] [address] Care Team Providers Name Role Phone Pcp, Patient Does Not Have A Primary Care Physician [phone] Therapy, Adc Covid Infusion Attending Clinician Unavailable Radha Lambret MD Attending Clinician RADHA LAMBERT Attending Clinician Unavailable Only, Ang Db Test Attending Clinician Unavailable Latoya Mejias MD Attending Clinician LATOYA MEJIAS Attending Clinician Unavailable Abhinav Hirsch RN Attending Clinician Unavailable Doctor Unassigned, [place] Attending Clinician Unavailable RYAN BENTLEY Attending Clinician Unavailable RYAN BENTLEY Admitting Clinician Unavailable Payers Payer Name Policy Type Policy Number Effective Date Expiration Date S ource Problems Condition Condition Condition Status Onset Resolution Last Treating Co mments Source Name Details Category Date Date Treatment Clinician Date Acute Acute Disease Active [facility] postoperat postoperat 5-19 [facility] lizette pain lizette pain 00:00: Medica l 00 Center S/P CABG x S/P CABG x Disease [facility] 00 [place] Sinus Sinus Disease Active [facility] bradycardi bradycardi 5-19 [facility] kes a a 00:00: Medical 00 [place] Acute Acute Disease Active [facility] blood loss blood loss 5-19 [facility] anemia anemia 00:00: Medical 00 [place] Atelectasi Atelectasi Disease Active [facility]: [facility] 00 [place] 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 5-18 [facility] k[facility] erosis erosis 00:00: Medical 00 [place] Acute Acute Disease Active [facility] pulmonary pulmonary 5-18 [facility] insufficie insufficie 00:00: Me dical ncy ncy 00 Center following following thoracic thoracic surgery surgery Coronary Coronary Disease [facility] disease of disease of 00:00: Me dical paimiut paimiut 00 Center artery of artery of paimiut paimiut 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 00:00: Me dical 00 Center Essential Essential Disease Active [facility] hypertensi hypertensi 5-10 [facility] k[facility] on on 00:00: Medical 00 [place] 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 5-10 [facility] k[facility] sterolemia sterolemia 00:00: Me dical 00 Center Allergies, Adverse Reactions, Alerts Allergy Allergy Status Severity Reaction(s) Onset Inactive Treating Comm ents Source Name Type Date Date Clinician NO KNOWN Drug Active Univers ALLERGIE Class ity [facility] Family History Family Member Diagnosis Comments Start Date Stop Date Source Natural mother Diabetes [facility] Natural mother Stroke [facility] Natural father Diabetes [facility] Natural father Stroke [facility] Social History Social Habit Start Date Stop Date Quantity Comments Source Exposure to 2021-09-20 2021-09-30 Not sure University SARS-CoV-2 00:00:00 10:11:[address] [facility] (event) Branch Alcohol intake 2016-09-15 2016-09-15 [facility] (finding) History of 1989-08-[address] [facility] [address] [facility] es tobacco use [facility] [facility] [address] [facility] [address] Melania kes 00:00:00 00:00:00 Medical Center Smoking Status Start Date Stop Date Source Former smoker [facility] Unknown if [facility] Medications Ordered Filled Start Stop Current Ordering Indication Dosage Frequency Signature Comments Components Source Medication Medication Date Date Medication? Clinician (SIG) Name Name saw Yes 160mg QD Take [address] palmetto 6-12 mg by [facility] 160 MG 11:40: mouth Medical capsule 00 daily. [place] aspirin 81 Yes 81mg QD Take [address] MG EC 6-12 by mouth [facility] tablet 11:39: daily. Medical 55 [place] simvastatin Yes 80mg QD Take [address] (ZOCOR) 80 6-12 by mouth [facility] MG tablet 11:39: nightly. Medi zandra 55 [place] omega-3 Yes 1{capsu QD Take 1 [facility] fatty 6-12 le} capsule by [facility] acids-vitam 11:39: mouth Medic al in E 1,000 55 daily. [place] mg Cap multivitami Yes 1{tbl} QD Take [address] n per 6-12 tablet by [facility] tablet 11:39: mouth Medical 55 daily. [place] rosuvastati Yes 20mg QD Take [address] n (CRESTOR) 6-12 by mouth Luke s 10 MG 11:39: daily. Medical tablet 55 Center Immunizations Ordered Filled Immunization Date Status Comments Sour e Immunization Name Name NICOLASA 2021-10-01 Completed University o f 00:00:00 [facility] Vital Signs Vital Name Observation Time Observation Value Comments Source Systolic blood 2021-10-01 20:06:00 143 mm[Hg] Univer sity of pressure [facility] Diastolic blood 2021-10-01 20:06:00 71 mm[Hg] [facility] Heart rate 2021-10-01 20:06:00 57 /min [facility] Body temperature 2021-10-01 20:06:00 35.61 Arabella [facility] height 2021-10-01 20:06:00 190.5 cm [facility] Body weight 2021-10-01 20:06:00 111.131 kg [facility] BMI 2021-10-01 20:06:00 30.62 kg/m2 [facility] Procedures Procedure Date / Time Performed Performing Clinician Ja e ASSIGNMENT OF BENEFITS 2021-09-30 15:10:09 Doctor Unassigned, [facility] Encounters Start End Encounter Admission Attending Care Care Encounter Source Date/Time Date/Time Type Type Clinicians Facility Department ID 2021-10-01 2021-10-01 Nurse Therapy, Adc Covid Infusion [facility] [id number] Univers 15:00:00 16:00:00 Visit Radha Lambert Makayla JACEK [id number] ity of [id number] SUR[place]ICAL [id number] [facility] 053 Branch 2021-10-01 2021-10-01 Outpatient R KAREN [facility] [id number] Univers 15:00:00 15:00:00 RADHA [id number] serafin [facility] 2021-10-01 2021-10-01 Outpatient Patrick LAMBERT [facility] [id number] Univers 15:00:00 15:00:00 RADHA betancourt [facility] 2021-09-30 2021-09-30 Laboratory Only, Ang Db Test [facility] 1.2.8 [id number] Univers 10:15:00 10:30:00 Only Raudel [facility] [id number] ity of [place] [id number] [place]?BLEA [id number] [address] MEDICAL OFFICE BUILDING 2021-09-30 2021-09-30 Outpatient R RAUDEL [facility] [id number] Univers 10:15:00 10:15:00 LATOYA ity [facility] 2021-09-30 2021-09-30 Telephone SANTINO Hirsch [id number] Univers 00:00:00 00:00:00 Abhinav BUTLER [id number] ity of HOSPITAL [id number] [place] [id number] [facility] [address] [place] 2021-09-30 2021-09-30 Orders Doctor DE [id number] Univers 00:00:00 00:00:00 Only Unassigned, LUKE [id number] ity of [place] [facility] [id number] [place] as [id number] [facility] 009 Branch 2021-09-30 2021-09-30 Letter Doctor SANTINO [id number] Univers 00:00:00 00:00:00 (Out) Unassigned, LUKE [id number] ity of [place] [facility] [id number] [place] [phone] [address] Results Test Description Test Time Test Comments Results Result Comments Source MAGNESIUM 2016-08-28 05:41:00 Test Item Value Reference Range Interpretation Comme nts MAGNESIUM (BEAKER) (test code = 627) 1.7 mg/dL 1.6-2.6 BASIC METABOLIC [id number] 05:41:00 Test Item Value Reference Range Interpretation [...] APPLICABLE FOR DIALYSIS PATIEN TS. CBC (HEMOGRAM ONLY)2016-08-28 05:20:00 Test Item Value [...] WBC 0-0 (BEAKER) (test code = 413) [id number] 04:50:00 Test Item Value Reference Range Interpretation Comments MAGNESIUM (BEAKER) (test code = 1.7 mg/dL 1.6-2.6 627) BASIC METABOLIC [id number] 04:50:00 Test Item Value Reference Range Interpretation [...] WBC 0-0 (BEAKER) (test code = 413) [id number] 06:01:00 Test Item Value Reference Range Interpretation Comments MAGNESIUM (BEAKER) (test code = 1.9 mg/dL 1.6-2.6 627) BASIC METABOLIC [id number] 06:01:00 Test Item Value Reference Range Interpretation [...] S NOT APPLICABLE FOR DIALYSIS PATIEN TS. [id number] 12:38:00 Test Item Value Reference Range Interpretation Comments MAGNESIUM (BEAKER) (test code = 1.9 mg/dL 1.6-2.6 627) [id number] 12:28:00 Test Item Value Reference Range Interpretation Comments PARTIAL THROMBOPLASTIN TIME 29.0 seconds 22.5-36.0 (BEAKER) (test code = 760) PROTHROMBIN [id number] 12:27:00 Test Item Value Reference Range Interpretation Comments PROTIME (BEAKER) (test code = 13.3 seconds 11.7-14.7 759) INR (BEAKER) (test code = 370) 1.0 <=5.9 RECOMMENDED COUMADIN/WARFARIN INR THERAPY RANGESSTANDARD DOSE: 2.0 - 3.0 Includes: PROPHYLAXIS for venous thrombosis, systemic embolization; TREATMENT for venous thrombosis and/or pulmonary embolus.HIGH RISK: Target INR is 2.5-3.5 for patients with mechanical heart valves.[id number] 07:41:00 Test Item Value Reference Range Interpretation Comments MAGNESIUM (BEAKER) (test code = 6.4 mg/dL 1.6-2.6 HH 627) BASIC METABOLIC [id number] 07:24:00 Test Item Value Reference Range Interpretation [...] WBC 0-0 (BEAKER) (test code = 413) [id number] 06:39:00 Test Item Value Reference Range Interpretation Comments MAGNESIUM (BEAKER) (test code = 1.8 mg/dL 1.6-2.6 627) BASIC METABOLIC [id number] 06:39:00 Test Item Value Reference Range Interpretation [...] pg/mL 0-100 H (test code = 700) [id number] 02:33:00 Test Item Value Reference Range Interpretation Comments MAGNESIUM (BEAKER) (test code = 1.5 mg/dL 1.6-2.6 L 627) BASIC METABOLIC [id number] 02:33:00 Test Item Value Reference Range Interpretation [...] S NOT APPLICABLE FOR DIALYSIS PATIEN TS. [id number] 05:57:00 Test Item Value Reference Range Interpretation Comments ACTIVATED CLOTTING TIME [address] [facility] 6720 (BEAKER) (test code = [place] [address]) [id number] 05:57:00 Test Item Value Reference Range Interpretation Comments ACTIVATED CLOTTING TIME [address] [facility] 6720 (BEAKER) (test code = [place] 441) [id number] 05:57:00 Test Item Value Reference Range Interpretation Comments ACTIVATED CLOTTING TIME 528 [address] [facility] 6720 (BEAKER) (test code = [place] 441) [id number] 04:30:00 Test Item Value Reference Range Interpretation Comments MAGNESIUM (BEAKER) (test code = 2.0 mg/dL 1.6-2.6 627) BASIC METABOLIC [id number] 04:30:00 Test Item Value Reference Range Interpretation [...] PATIEN TS. CBC W/PLT COUNT & AUTO [id number] 04:29:00 Test Item Value Reference Range Interpretation [...] K/ L 0.00-0.20 (test code = 417) [id number] 04:26:00 Test Item Value Reference Range Interpretation Comments PHOSPHORUS (BEAKER) (test code = 3.8 mg/dL 2.3-4.7 604) [id number] 04:26:00 Test Item Value Reference Range Interpretation Comments MAGNESIUM (BEAKER) (test code = 2.0 mg/dL 1.6-2.6 627) BASIC METABOLIC [id number] 04:26:00 Test Item Value Reference Range Interpretation [...] (BEAKER) (test code = 413) 0.00BLOOD GAS, [id number] 18:15:00 Test Item Value Reference Range Interpretation [...] (test code = 1819) 60.0 % GLUCOSE-STAT [id number] 18:15:00 Test Item Value Reference Range Interpretation Comments GLUCOSE RANDOM (BEAKER) (test code 126 mg/dL 70-110 H = 652) [id number] 18:14:00 Test Item Value Reference Range Interpretation Comments MAGNESIUM (BEAKER) (test code = 2.0 mg/dL 1.6-2.6 627) POTASSIUM-STAT [id number] 18:11:00 Test Item Value Reference Range Interpretation Comments POTASSIUM (BEAKER) (test code = 4.1 meq/L 3.6-5.5 379) [id number] 16:35:00 Test Item Value Reference Range Interpretation Comments MAGNESIUM (BEAKER) 2.4 mg/dL 1.6-2.6 Specimen slightly (test code = 627) hemolyzed [id number] 16:35:00 Test Item Value Reference Range Interpretation Comments PHOSPHORUS (BEAKER) 3.1 mg/dL 2.3-4.7 Specimen slightly (test code = 604) hemolyzed [id number] 16:35:00 Test Item Value Reference Range Interpretation Comments POTASSIUM (BEAKER) 4.5 meq/L 3.5-5.1 Specimen slightly (test code = 379) hemolyzed [id number] 16:35:00 Test Item Value Reference Range Interpretation Comments SODIUM (BEAKER) (test code = 381) 137 meq/L 136-145 [id number] 16:35:00 Test Item Value Reference Range Interpretation Comments GLUCOSE RANDOM (BEAKER) (test code 127 mg/dL 70-105 H = 652) Effective 02/21/2014: Reference Range Change-Adult onlyNew: 70-105 Previous: 70-110BASIC METABOLIC [id number] 16:35:00 Test Item Value Reference Range Interpretation [...] DIALYSIS PATIEN TS. LACTIC ACID, ARTERIAL, WHOLE [id number] 16:30:00 Test Item Value Reference Range Interpretation Comments LACTATE BLOOD 1.1 mmol/L 0.5-2.2 Specimen sligh tly ARTERIAL (2) (BEAKER) hemoly zed (test code = 2874) Effective 08/08/2015: Units/Reference Range ChangeNew: 0.5-2.2 mmol/L Previous: 5- 20 mg/dLCBC W/PLT COUNT & AUTO [id number] 16:22:00 Test Item Value Reference Range Interpretation [...] L 0.00-0.20 (test code = 417) 0.00CALCIUM, [id number] 16:10:00 Test Item Value Reference Range Interpretation Comments CALCIUM IONIZED (BEAKER) (test 1.11 mmol/L 1.12-1.27 L code = 698) PH, BLOOD (BEAKER) (test code = 7.40 1810) BLOOD GAS, [id number] 16:10:00 Test Item Value Reference Range Interpretation [...] code = 1819) 60.0 % OXYGEN SATURATION, [id number] 16:08:00 Test Item Value Reference Range Interpretation Comments O2 SATURATION (MEASURED) (BEAKER) 59.9 % (test code = 1455) From distal port of IJ central venous catheterBLOOD GAS, [id number] 14:53:00 Test Item Value Reference Range Interpretation [...] (test code = 1819) 97.0 % GLUCOSE-STAT [id number] 14:53:00 Test Item Value Reference Range Interpretation Comments GLUCOSE RANDOM (BEAKER) (test code 136 mg/dL 70-110 H = 652) HGB/HCT (H&H) - STAT [id number] 14:53:00 Test Item Value Reference Range Interpretation Comments HEMOGLOBIN (BEAKER) (test code = 12.9 g/dL 13.0-16.8 L 410) HEMATOCRIT (BEAKER) (test code = 38.0 % 40.0-50.0 L 411) CALCIUM, [id number] 14:53:00 Test Item Value Reference Range Interpretation Comments CALCIUM IONIZED (BEAKER) (test 0.96 mmol/L 1.12-1.27 L code = 698) PH, BLOOD (BEAKER) (test code = 7.39 1810) SODIUM NA-STAT [id number] 14:52:00 Test Item Value Reference Range Interpretation Comments SODIUM (BEAKER) (test code = 381) 135 meq/L 135-148 POTASSIUM-STAT [id number] 14:52:00 Test Item Value Reference Range Interpretation [...] MM 55.0-65.0 H (test code = 1413) [id number] 14:13:00 Test Item Value Reference Range Interpretation Comments FIBRINOGEN LEVEL (BEAKER) (test 209 mg/dl 225-434 L code = 658) PROTHROMBIN [id number] 14:08:00 Test Item Value Reference Range Interpretation Comments PROTIME (BEAKER) (test code = 19.2 seconds 11.7-14.7 H 759) INR (BEAKER) (test code = 370) 1.6 <=5.9 RECOMMENDED COUMADIN/WARFARIN INR THERAPY RANGESSTANDARD DOSE: 2.0 - 3.0 Includes: PROPHYLAXIS for venous thrombosis, systemic embolization; TREATMENT for venous thrombosis and/or pulmonary embolus.HIGH RISK: Target INR is 2.5-3.5 for patients with mechanical heart valves.[id number] 14:08:00 Test Item Value Reference Range Interpretation Comments PARTIAL THROMBOPLASTIN TIME 30.3 seconds 22.5-36.0 (BEAKER) (test code = 760) PLATELET [id number] 14:01:00 Test Item Value Reference Range Interpretation Comments PLATELET COUNT (BEAKER) (test 158 K/CU MM 150-430 code = 756) BLOOD GAS, [id number] 13:53:00 Test Item Value Reference Range Interpretation [...] (test code = 1819) 97.0 % GLUCOSE-STAT [id number] 13:53:00 Test Item Value Reference Range Interpretation Comments GLUCOSE RANDOM (BEAKER) (test code 112 mg/dL 70-110 H = 652) SODIUM NA-STAT [id number] 13:53:00 Test Item Value Reference Range Interpretation Comments SODIUM (BEAKER) (test code = 381) 133 meq/L 135-148 L HGB/HCT (H&H) - STAT [id number] 13:53:00 Test Item Value Reference Range Interpretation Comments HEMOGLOBIN (BEAKER) (test code = 11.5 g/dL 13.0-16.8 L 410) HEMATOCRIT (BEAKER) (test code = 34.0 % 40.0-50.0 L 411) CALCIUM, [id number] 13:53:00 Test Item Value Reference Range Interpretation Comments CALCIUM IONIZED (BEAKER) (test 1.11 mmol/L 1.12-1.27 L code = 698) PH, BLOOD (BEAKER) (test code = 7.44 1810) POTASSIUM-STAT [id number] 13:50:00 Test Item Value Reference Range Interpretation Comments POTASSIUM (BEAKER) (test code = 4.3 meq/L 3.6-5.5 379) POTASSIUM-STAT [id number] 13:11:00 Test Item Value Reference Range Interpretation Comments POTASSIUM (BEAKER) (test code = 4.5 meq/L 3.6-5.5 379) BLOOD GAS, [id number] 13:11:00 Test Item Value Reference Range Interpretation [...] (test code = 1819) 80.0 % GLUCOSE-STAT [id number] 13:11:00 Test Item Value Reference Range Interpretation Comments GLUCOSE RANDOM (BEAKER) (test code 114 mg/dL 70-110 H = 652) SODIUM NA-STAT [id number] 13:11:00 Test Item Value Reference Range Interpretation Comments SODIUM (BEAKER) (test code = 381) 133 meq/L 135-148 L HGB/HCT (H&H) - STAT [id number] 13:11:00 Test Item Value Reference Range Interpretation Comments HEMOGLOBIN (BEAKER) (test code = 10.4 g/dL 13.0-16.8 L 410) HEMATOCRIT (BEAKER) (test code = 31.0 % 40.0-50.0 L 411) BLOOD GAS, [id number] 12:10:00 Test Item Value Reference Range Interpretation [...] (BEAKER) (test code = 1819) 100.0 % GLUCOSE-STAT [id number] 12:08:00 Test Item Value Reference Range Interpretation Comments GLUCOSE RANDOM (BEAKER) (test code 101 mg/dL 70-110 = 652) SODIUM NA-STAT [id number] 12:08:00 Test Item Value Reference Range Interpretation Comments SODIUM (BEAKER) (test code = 381) 137 meq/L 135-148 POTASSIUM-STAT [id number] 12:08:00 Test Item Value Reference Range Interpretation Comments POTASSIUM (BEAKER) (test code = 3.7 meq/L 3.6-5.5 379) HGB/HCT (H&H) - STAT [id number] 12:08:00 Test Item Value Reference Range Interpretation Comments HEMOGLOBIN (BEAKER) (test code = 15.2 g/dL 13.0-16.8 410) HEMATOCRIT (BEAKER) (test code = 45.0 % 40.0-50.0 411) HEMOGLOBIN [id number] 12:31:00 Test Item Value Reference Range Interpretation Comments HEMOGLOBIN A1C (BEAKER) (test code = 4.9 % 4.3-6.1 368) BASIC METABOLIC [id number] 10:54:00 Test Item Value Reference Range Interpretation [...] PATIEN TS. CBC W/PLT COUNT & AUTO [id number] 10:47:00 Test Item Value Reference Range Interpretation [...] L 0.00-0.20 (test code = 417) 0.00PROTHROMBIN [id number] 10:46:00 Test Item Value Reference Range Interpretation Comments PROTIME (BEAKER) (test code = 13.4 seconds 11.7-14.7 759) INR (BEAKER) (test code = 370) 1.0 <=5.9 RECOMMENDED COUMADIN/WARFARIN INR THERAPY RANGESSTANDARD DOSE: 2.0 - 3.0 Includes: PROPHYLAXIS for venous thrombosis, systemic embolization; TREATMENT for venous thrombosis and/or pulmonary embolus.HIGH RISK: Target INR is 2.5-3.5 for patients with mechanical heart valves.
[2021-12-12 11:49] LABS: Potassium 4.3 mmol/L (3.5-5.1)
[2021-12-12 12:03] LABS: Absolute Lymphocytes (CBC) 0.5 K/uL (0.7-4.9); Hematocrit 39.4 % (39.6-49.0); Lymphocytes % 13.3 % (15.3-44.8); MCV 87.7 fL (80-100); MPV 8.4 fL (7.6-11.3); RBC Red Blood Cell Count 4.49 M/uL (4.33-5.43)
--- NOTE | 2021-12-12 12:13 | RAD REPORT ---
EXAM DESCRIPTION: RAD - Chest Single View - 12/12/2021 11:53 am CLINICAL HISTORY: facial droop COMPARISON: Chest Single View dated 08/27/2021; Chest Pa And Lat (2 Views) dated 07/30/2020; Chest Pa And Lat (2 Views) dated 08/08/2016; Chest Single View dated 09/10/2015 FINDINGS: Lines: None. Lungs: No evidence of edema or pneumonia. Pleural: No significant pleural effusions or pneumothorax. Cardiac: Cardiomegaly. Sternotomy. Mediastinum: Within normal limits. Bones: No acute fractures. Other: None IMPRESSION: No acute cardiopulmonary disease.
[2021-12-12] MEDS ORDERED: HYDROCODONE/APAP 5/325 MG TAB ONE (12:47)
[2021-12-12 12:48] LABS: Urine Blood Trace-intact (Negative); Urine Glucose Negative (Negative); Urine Protein Trace (Negative); Urine Specific Gravity >=1.030 (1.005-1.030)
[2021-12-12 13:03] LABS: Urine Mucus 3+ /HPF (None Seen); Urine RBC <5 /HPF (None Seen)
[2021-12-12] MEDS ORDERED: KETOROLAC 30 MG/ML INJ ONE (14:15)
--- NOTE | 2021-12-12 14:18 | RAD REPORT ---
EXAM DESCRIPTION: MRI - Brain W/Wo Cont - 12/12/2021 1:39 pm CLINICAL HISTORY: facial droop with ALCARAZ COMPARISON: Brain Wo Cont dated 08/27/2021; Head Brain Wo Cont dated 08/27/2021; Bone Imaging Whole Oral dy dated 11/13/2021 TECHNIQUE: Sagittal and axial T1-weighted images were obtained. Axial PD/heavily T2-weighted and T2- FLAIR images were obtained along with axial DWI/ADC mapping sequences. Coronal heavily T2 weighted s equence obtained. Axial and coronal post-contrast T1-weighted images were also obtained. A 20 ml Mul tihance contrast following utilized. FINDINGS: No acute infarction seen. No intracranial hemorrhage is identified. Patient has a baseline of very minimal chronic ischemic change and no significant atrophy. Ventricles are normal. There is no midline shift. In the left temporal lobe there is a 2.6 centimeter rounded mass that is generally isodense to the north rrounding brain parenchyma on T1 weighted and T2 weighted sequencing. Mass is relatively isodense on T2 stir sequencing as well. There is significant surrounding white matter edema throughout the anteri or temporal lobe extending towards the lateral margin of the left basal ganglia and posterior margin of the insular cortex. Post-contrast imaging shows vigorous enhancement of the mass. The mass extends down to the bony structures along the petrous apex of the temporal bone, lateral margin of the clivu s and lateral bony structures of the cavernous sinus. This mass appears to be bony in origin elevatin g the dura. In a patient with a prostate cancer history, a bony metastatic lesion is favored. No abno rmality was seen on the August 27 imaging. The mass does appear to be elevating the dura rather than dur al in origin. A meningioma or primary brain malignancy are not likely. Fibrous dysplasia generally do es not project as a mass inward into the brain parenchyma. No other areas of dural thickening or enhancement. No brain parenchymal primary process seen. Signal voids are seen as a normal finding within the major intracranial vessels. Internal carotid artery in the left-side cavernous sinus does still appear to be patent. Paranasal sinuses are clear. Left side mastoid air cells are opacified by fluid. IMPRESSION: Large 2.6 centimeter vigorously enhancing mass in the left temporal lobe appearing is a pedunculated mass projecting into the lobe from bony structures of the petrous apex, lateral clivus a nd lateral cavernous sinus. There is significant left temporal lobe edema extending into the posterior aspect of the insular [place] ex and lateral margin of the basal ganglia. No acute infarction or intracranial hemorrhage. Review of prior imaging August 2021 shows no abnormality. In a patient with metastatic prostate cancer, this rapidly developing mass is favored to be metastatic in origin. Meningioma or fibrous dysplasia e tiologies would not develop in this short time interval or arise from the bone. Primary brain maligna ncy is not suspected.
[2021-12-12] MEDS ORDERED: LEVETIRACETAM 500 MG/5 ML VIAL IV ONE (14:58)
[2021-12-12] MEDS ORDERED: dexAMETHasone 10 MG/ML VIAL ONE (14:58)
[2021-12-12] MEDS ORDERED: NA CHLORIDE 0.9% 100 ML ONE (14:58)
[2021-12-12 15:18] LABS: SARS-CoV-2 Antigen Rapid Res Negative (Negative)
--- NOTE | 2021-12-12 15:24 | ER ---
Nurse's Notes [facility] Name: Robbi Wallace Jr Age: 76 yrs Sex: Male : 1945 Arrival Date: 12/12/2021 Time: 10:29 Bed 4 Private MD: Silver Bridges T Diagnosis: Malignant neoplasm of frontal lobe;Sixth [abducent] nerve palsy, left eye;Left facial droop;Essential (primary) hypertension Presentation: 12/12 10:39 Chief complaint: Patient states: has left sided facial numbness since august , this iw morning he has a left sided facial droop that was not there last night, was recently diagnosed with MS, has headaches every day and has increasing back pain. Coronavirus screen: At this time, the client does not indicate any symptoms associated with coronavirus-19. Ebola Screen: Patient negative for fever greater than or equal to 101.5 degrees Fahrenheit, and additional compatible Ebola Virus Disease symptoms Patient denies exposure to infectious person. Patient denies travel to an Ebola-affected area in the 21 days before illness onset. No symptoms or risks identified at this time. Initial Sepsis Screen: Does the patient meet any 2 criteria? No. Patient's initial sepsis screen is negative. Does the patient have a suspected source of infection? No. Patient's initial sepsis screen is negative. Risk Assessment: Do you want to hurt yourself or someone else? Patient reports no desire to harm self or others. 10:39 Method Of Arrival: Wheelchair iw 10:39 Acuity: DANTE 2 iw 10:45 Onset of symptoms is unknown. 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 Nutritional screening: No deficits noted. aa5 Tuberculosis screening: No symptoms or risk factors identified. Fall Risk IV access (20 points). Ambulatory Aid- Crutches/Cane/Walker (15 pts). Gait- Weak (10 pts.). Total O[place]nor Fall Scale indicates High Risk Score (45 or more points). Fall prevention measures have been instituted. Side Rails Up X 2 Placed Close to Nursing Station Family Present and informed to notify staff if the need to leave the bedside. Assessment: 10:45 General: Appears uncomfortable, Behavior is calm, cooperative. Pain: Complains of pain aa5 in back and back of head Pain currently is 8 out of 10 on a pain scale. Quality of pain is described as sharp, shooting, Pain began for a few months and has gotten worse over the last 2 weeks. Is continuous, Aggravated by increased activity, repositioning. Neuro: Level of Consciousness is awake, alert, obeys commands, Oriented to person, place, time, situation, Bingo Caller are weak bilaterally Moves all extremities. Speech is normal, Facial droop on left, Pupils are PERRLA, Reports headache occipital area, since 2 weeks ago numbness in left side of face for "months", reports he woke up with left facial droop today. Cardiovascular: Heart tones S1 S2 present Rhythm is regular. Respiratory: Airway is patent Respiratory effort is even, unlabored, Respiratory pattern is regular, symmetrical. GI: Abdomen is round Bowel sounds present X 4 quads. Abd is soft X 4 quads Reports decreased appetite over the last few weeks, pt states "I haven't really been able to eat much because I feel like the food just spills out of my mouth but that started months ago", denies difficulty swallowing. Patient currently denies nausea, vomiting. : No signs and/or symptoms were reported regarding the genitourinary system. EENT: Denies difficulty swallowing. Derm: Skin is pink, warm \\T\\ dry. Musculoskeletal: Range of motion: intact in all extremities. 12:20 Reassessment: Requesting pain medication for back pain, was notified. . aa5 12:30 Reassessment: Patient is alert, oriented x 3, equal unlabored respirations, skin aa5 warm/dry/pink. Awaiting MRI, pt notified of wait time, approximately 1 hr per MRI staff. . 12:41 Reassessment: Pt ate amador rogers MD okay'd pt to eat . aa5 13:44 Reassessment: Pt back from MRI. aa5 13:45 Reassessment: Patient is alert, oriented x 3, equal unlabored respirations, skin aa5 warm/dry/pink. Pt c/o burning sensation to left side of face and c/o headache to back of head that has not improved after [place] administration, MD was notified. . 14:50 Reassessment: Patient is alert, oriented x 3, equal unlabored respirations, skin aa5 warm/dry/pink. Pt reports headache has not improved, rates pain 7/10 on a pain scale. . 17:00 Reassessment: Patient is alert, oriented x 3, equal unlabored respirations, skin aa5 warm/dry/pink. ALCARAZ not improved, MD was notified. Pt also notified of long wait time for transfer to [facility], pt verbalized understanding. . 18:15 Reassessment: Patient appears in no apparent distress at this time. Patient and/or ph family updated on plan of care and expected duration. Pain level reassessed. Patient is alert, oriented x 3, equal unlabored respirations, skin warm/dry/pink. 20:23 Reassessment: Pt c/o H/A, states its worse when turning head, states pain is 7/10. ll3 22:06 Reassessment: Patient and/or family updated on plan of care and expected duration. Pain ll3 level reassessed. Patient is alert, oriented x 3, equal unlabored respirations, skin warm/dry/pink. States pain is 2/10 Patient states feeling better. Vital Signs: 10:41 BP 138 / 70; Pulse 50; Resp 16; Temp 98.3; Pulse Ox 100% on R/A; iw 12:00 BP 159 / 65; Pulse 55; Resp 16 S; Pulse Ox 98% on R/A; aa5 13:45 BP 177 / 70; Pulse 54; Resp 18 S; Pulse Ox 99% on R/A; aa5 16:36 BP 167 / 67; Pulse 49; Resp 16 S; Pulse Ox 98% ; aa5 18:15 BP 155 / 77; Pulse 49; Resp 18; Pulse Ox 97% on R/A; ph 20:00 BP 139 / 73; Pulse 56; Resp 16; Pulse Ox 99% on R/A; ll3 21:00 BP 155 / 64; Pulse 48; Resp 17; Pulse Ox 99% on R/A; ll3 21:00 BP 155 / 64; Pulse 48; Resp 16; Pulse Ox 96% ; Pain 2/10; ll3 22:00 BP 155 / 74; Pulse 49; Resp 15; Pulse Ox 96% on R/A; ll3 ED Course: 10:29 Patient arrived in ED. am2 10:29 Silver Bridges MD is Private Physician. am2 10:41 Triage completed. iw 10:42 Denzel Deras DO is Attending Physician. ms3 10:45 Patient has correct armband on for positive identification. Placed in gown. Bed in low aa5 position. Call light in reach. Side rails up X2. 10:56 Fatemeh Valdes, MATIAS is Primary Nurse. aa5 11:15 Initial lab(s) drawn, by me, sent to lab. Inserted saline lock: 18 gauge in right aa5 antecubital area, using aseptic technique. Blood collected. 11:55 CXR XRAY In Process Unspecified. EDMS 13:34 Brain W/Wo Cont In Process Unspecified. EDMS 15:30 initiated transfer to [facility]. bd 17:04 spoke with Jessica at [facility], pt is accepted but bed is not available bd yet. 19:00 Report given to MATIAS Adames and MATIAS Wray. aa5 22:07 No provider procedures requiring assistance completed. ll3 22:07 Arm band placed on Patient placed in an exam room, on a stretcher, on pulse oximetry. ll3 22:55 Patient transferred, IV remains in place. ll3 Administered Medications: 12:41 Drug: HYDROcodone-acetaminophen 5 mg-325 mg 1 tabs Route: PO; aa5 13:44 Follow up: Response: No adverse reaction aa5 14:07 Drug: Ketorolac 10 mg Route: IVP; Site: right antecubital; aa5 14:50 Follow up: Response: No adverse reaction; Pain is unchanged, physician notified aa5 14:50 Drug: Dexamethasone 10 mg Route: IVP; Site: right antecubital; aa5 15:05 Follow up: Response: No adverse reaction aa5 14:50 Drug: Keppra (levETIRAcetam) 1000 mg Route: IV; Rate: bolus; Site: right antecubital; aa5 15:05 Follow up: Response: No adverse reaction; IV Status: Completed infusion aa5 18:14 Drug: morphine 4 mg Route: IVP; Infused Over: 4 mins; Site: right antecubital; ph 20:29 Drug: morphine 4 mg Route: IVP; Infused Over: 4 mins; Site: right antecubital; ll3 21:00 Follow up: BP 155 / 64; Pulse 48 bpm; Resp 16 bpm; Pulse Ox 96% ; Pain 2/10 Adult; ll3 Response: No adverse reaction; Marked relief of symptoms Medication: 22:07 VIS not applicable for this client. ll3 Outcome: 15:23 ER care complete, transfer ordered by MD. ms3 22:55 Transferred by ground EMS to [facility], Transfer form completed. ll3 X-rays sent w/ patient. 22:55 Condition: stable 22:55 Instructed on the need for transfer, Demonstrated understanding of instructions. 22:56 Patient left the ED. ll3 Signatures: Dispatcher [employer] EDMS Lilly Solis Irene, RN MATIAS iw Fatemeh Valdes RN RN aa5 Lima Randhawa RN RN Bernadine Canales am2 Denzel Deras, DO ms3 Rosangela Lenz RN RN ll3 Corrections: (The following items were deleted from the chart) 14:13 10:45 Pain: Complains of pain in back Pain currently is 8 out of 10 on a pain scale. aa5 Quality of pain is described as sharp, shooting, Pain began for a few months and has gotten worse over the last 2 weeks. Is continuous, Aggravated by increased activity, repositioning, aa5 14:13 10:45 Neuro: Level of Consciousness is awake, alert, obeys commands, Oriented to aa5 person, place, time, situation, Bingo Caller are weak bilaterally Moves all extremities. Speech is normal, Facial droop on left, Pupils are PERRLA, Reports numbness in left side of face for "months", reports he woke up with left facial droop today. aa5
--- NOTE | 2021-12-12 15:24 | EDPHYS ---
Physician Documentation [facility] Name: Robbi Wallace Jr Age: 76 yrs Sex: Male : 1945 Arrival Date: 12/12/2021 Time: :29 Bed 4 Private MD: Silver Bridges T ED Physician Denzel Deras HPI: 12/12 11:07 This 76 yrs old Male presents to ER via Wheelchair with complaints of Numbness Of Face, ms3 Blurred Vision. 11:07 76-year-old male with past medical history of prostate cancer, hyperlipidemia, ms3 hypertension, myocardial infarction, multiple sclerosis presents for worsening neurologic symptoms for 3 weeks. Patient states he has a worsened left facial droop, and left cranial nerve palsy and confusion. Patient states he has a daily headache back pain that he rates a 3-4 over 10. Patient denies alleviating or inciting factors. Patient denies nausea, vomiting, chest pain.. 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 Cardiovascular: Negative for chest ms3 pain, and palpitations. Respiratory: Negative for shortness of breath, cough, wheezing, and pleuritic chest pain, Abdomen/GI: Negative for abdominal pain, nausea, vomiting, diarrhea, and constipation. 11:07 Neuro: Positive for Left facial droop, CN palsy. Exam: 11:08 ECG was reviewed by the Attending Physician. ms3 15:26 Constitutional: This is a well developed, well nourished patient who is awake, alert, ms3 and in no acute distress. 15:26 Neck: Trachea midline, no cervical lymphadenopathy. Supple, full range of motion without nuchal rigidity, or vertebral point tenderness. No Meningismus. Chest/axilla: Normal chest wall appearance and motion. Nontender with no deformity. Cardiovascular: Regular rate and rhythm with a normal S1 and S2. No gallops, murmurs, or rubs. Normal PMI, no JVD. No pulse deficits. Respiratory: Lungs have equal breath sounds bilaterally, clear to auscultation and percussion. No rales, rhonchi or wheezes noted. No increased work of breathing, no retractions or nasal flaring. Abdomen/GI: Soft, non-tender, with normal bowel sounds. No distension or tympany. No guarding or rebound. No evidence of tenderness throughout. Skin: Warm, dry with normal turgor. Normal color with no rashes, no lesions, and no evidence of cellulitis. 15:26 Head/face: Noted is Left facial droop. 15:26 Eyes: Pupils: equal, round, and reactive to light and accomodation, Left CN [address] Pals[address]. 15:27 CT study not indicated or reported. Reason for not performing CT: See MRI results ms3 Vital Signs: 10:41 BP 138 / 70; Pulse 50; Resp 16; Temp 98.3; Pulse Ox 100% on R/A; iw 12:00 BP 159 / 65; Pulse 55; Resp 16 S; Pulse Ox 98% on R/A; aa5 13:45 BP 177 / 70; Pulse 54; Resp 18 S; Pulse Ox 99% on R/A; aa5 16:36 BP 167 / 67; Pulse 49; Resp 16 S; Pulse Ox 98% ; aa5 18:15 BP 155 / 77; Pulse 49; Resp 18; Pulse Ox 97% on R/A; ph 20:00 BP 139 / 73; Pulse 56; Resp 16; Pulse Ox 99% on R/A; ll3 21:00 BP 155 / 64; Pulse 48; Resp 17; Pulse Ox 99% on R/A; ll3 21:00 BP 155 / 64; Pulse 48; Resp 16; Pulse Ox 96% ; Pain 2/10; ll3 22:00 BP 155 / 74; Pulse 49; Resp 15; Pulse Ox 96% on R/A; ll3 MDM: 11:01 Patient medically screened. ms3 15:23 Differential diagnosis: CVA, TIA, metabolic disorder, Multiple sclerosis flare. Data ms3 reviewed: vital signs, nurses notes, lab test result(s), radiologic studies, and as a result, I will Transfer. Data interpreted: compliance monitor: rate is 50 beats/min, rhythm is sinus bradycardia, with no ectopy, Interpretation: bradycardia. Counseling: I had a detailed discussion with the patient and/or guardian regarding: the historical points, exam findings, and any diagnostic results supporting the discharge/admit diagnosis, lab results, radiology results, the need to transfer to another facility. ED course: Discussed case with Dr. Ramos. He agrees with Decadron 10 mg and Keppra load. Patient will be transferred to higher level of care. Discussed MRI results and labs with patient and his daughter. They understand agree with plan. Patient remains in stable condition in the emergency department at this time. Transfer has been initiated.. 15:43 ED course: Discussed case with Dr Ragsdale, neurology, at [facility] and he will consult on ms3 patient. Patient can be admitted to neuro floor.. 16:13 ED course: Discussed case with Dr Neville and she accepts patient.. ms3 12/12 11:05 Order name: CBC with Diff; Complete Time: 13:21 ms3 12/12 11:05 Order name: BMP; Complete Time: 13:21 ms3 12/12 11:05 Order name: Urine Microscopic Only; Complete Time: 13:21 ms3 08 12:49 Order name: Urine Dipstick-Ancillary; Complete Time: 13:21 EDMS 08 14:29 Order name: SARS-COV-2 Antigen Rapid; Complete Time: 15:19 bd 08 11:05 Order name: CXR XRAY; Complete Time: 13:21 ms3 08 11:28 Order name: Brain W/Wo Cont; Complete Time: 14:22 EDMS 08 11:05 Order name: Urine Dipstick-Ancillary (obtain specimen); Complete Time: 12:41 ms3 EC:08 Rate is 46 beats/min. Rhythm is regular. QRS [place] is Normal. QT interval is normal. ms3 Clinical impression: Sinus bradycardia. Interpreted by me. Reviewed by me. Administered Medications: 12:41 Drug: HYDROcodone-acetaminophen 5 mg-325 mg 1 tabs Route: PO; aa5 13:44 Follow up: Response: No adverse reaction aa5 14:07 Drug: Ketorolac 10 mg Route: IVP; Site: right antecubital; aa5 14:50 Follow up: Response: No adverse reaction; Pain is unchanged, physician notified aa5 14:50 Drug: Dexamethasone 10 mg Route: IVP; Site: right antecubital; aa5 15:05 Follow up: Response: No adverse reaction aa5 14:50 Drug: Keppra (levETIRAcetam) 1000 mg Route: IV; Rate: bolus; Site: right antecubital; aa5 15:05 Follow up: Response: No adverse reaction; IV Status: Completed infusion aa5 18:14 Drug: morphine 4 mg Route: IVP; Infused Over: 4 mins; Site: right antecubital; ph 20:29 Drug: morphine 4 mg Route: IVP; Infused Over: 4 mins; Site: right antecubital; ll3 21:00 Follow up: BP 155 / 64; Pulse 48 bpm; Resp 16 bpm; Pulse Ox 96% ; Pain 2/10 Adult; ll3 Response: No adverse reaction; Marked relief of symptoms Disposition Summary: 12/12/21 15:23 Transfer Ordered Transfer Location: [facility] ms3 Reason: Higher level of care ms3 Condition: Stable ms3 Problem: new ms3 Symptoms: have worsened ms3 Accepting Physician: (12/12/21 22:56) ll3 Diagnosis - Malignant neoplasm of frontal lobe ms3 - Sixth [abducent] nerve palsy, left eye ms3 - Left facial droop ms3 - Essential (primary) hypertension ms3 Forms: - Medication Reconciliation Form ms3 - SBAR form ms3 Signatures: Dispatcher [employer] EDMS Rafael Juarez PA PA jmm Williams, Irene, RN RN iw Calderon, Audri, RN RN aa5 Lima Randhawa RN RN ph Sims, Marcus, DO ms3 Rosangela Lenz RN RN ll3 Corrections: (The following items were deleted from the chart) 14:00 13:52 Brain W/Wo Cont+MRI.RAD.BRZ ordered. EDMS EDMS 22:56 15:23 Dr lynn3 ll3
[2021-12-12] MEDS ORDERED: MORPHINE 4 MG/ML SYR ONE ×2 (18:20→20:32)
[2021-12-13 01:46] VITALS: TEMP 98.3
[2021-12-13 02:01] VITALS: BP 155/74; O2SAT 96
--- NOTE | 2021-12-13 13:57 | EKG ---
Test Date: 2021-12-12 Test Time: 11:08:44 Hand Touch Up Painter: LYN MEASUREMENT RESULTS: Intervals: Rate: 46 NM: 228 QRSD: 100 QT: 452 QTc: 395 Mcroberts: P: 25 NM: 228 QRS: -67 T: 46 INTERPRETIVE STATEMENTS: Sinus bradycardia with 1st degree AV block Incomplete right bundle branch block Left anterior fascicular block Cannot rule out Anterior infarct, age undetermined Abnormal ECG Compared to ECG 08/27/2021 13:20:47 Incomplete right bundle-branch block now present Myocardial infarct finding still present Electronically Signed On 12-13-21 13:55:46 CDT by Avinash Downey
== END 2021-12-12 22:56 | disposition short-term general hospital (02) ==
LOC: ER 10:27
DX: C71.1 Malignant neoplasm of frontal lobe (principal); H49.22 Sixth [abducent] nerve palsy, left eye; I10 Essential (primary) hypertension; R29.810 Facial weakness; Z95.1 Presence of aortocoronary bypass graft; Z20.822 Contact with and (suspected) exposure to COVID-19; Z85.46 Personal history of malignant neoplasm of prostate; Z85.830 Personal history of malignant neoplasm of bone
CPT/HCPCS: 93005; 85025; 80048; 36415; 71045; 70553; 96375; 96374; 99285; 87811; A9577; J1100; J1953; 81003; 81015

== ENCOUNTER 2022-06-12 16:52 | Emergency (ER) | payer OTHER ==
--- OUTSIDE RECORDS SUMMARY | 2022-06-12 16:59 | XMS REPORT | Continuity of Care Document ---
:1945 Author Organization [facility] t Address [address] [facility] [address] [place] [address] Care Team Providers Name Role Phone SHARPLESS Primary Care Physician Unavailable HANS CHRISTINA Attending Clinician Unavailable Ryan Roca MD Attending Clinician Hans Christina MD Attending Clinician Therapy, Adc Covid Infusion Attending Clinician Unavailable Adriano Lambert MD Attending Clinician ADRIANO LAMBERT Attending Clinician Unavailable Only, Ang Db Test Attending Clinician Unavailable Bernadine Starks MD Attending Clinician BERNADINE STARKS Attending Clinician Unavailable Torrey SALCEDO, Abhinav Chiang Attending Clinician Unavailable Doctor Unassigned, [place] Attending Clinician Unavailable RYAN BENTLEY Attending Clinician Unavailable RYAN ROCA Admitting Clinician Unavailable RYAN BENTLEY Admitting Clinician Unavailable Payers Payer Name Policy Type Policy Number Effective Date Expiration Date [place] [employer] MEDICARE O [id number] 2016 POS PPO 00:00:00 Problems Condition Condition Condition Status Onset Resolution Last Treating Co mments Source Name Details Category Date Date Treatment Clinician Date 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:00: Me dical to bone to bone 00 Center Hyponatrem Hyponatrem Disease Active [facility] ia ia 12-25 [facility] 00:[facility] Medical 00 Center 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 12-20 [facility] of of 00:00: Medical prostate prostate 00 Center Brain mass Brain mass Disease Active [facility] 9-09 [facility] 00:[facility]: Medical 00 [place] Acute Acute Disease Active [facility] postoperat postoperat 5-19 [facility] lizette pain lizette pain 00:00: Medica l 00 Center S/P CABG x S/P CABG x Disease Active [facility] 2 2 5-19 [facility] 00:00: Medical 00 [place] Sinus Sinus Disease Active [facility] bradycardi bradycardi 5-19 [facility] a a 00:00: Medical 00 Center Acute Acute Disease Active [facility] blood loss blood loss 5-19 [facility] anemia anemia 00:00: Medical 00 [place] Atelectasi Atelectasi Disease Active [facility] s 5-19 [facility] 00:00: Medical 00 [place] 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 5-18 [facility] erosis erosis 00:00: Medical 00 [place] Acute Acute Disease Active [facility] pulmonary pulmonary 5-18 [facility] insufficie insufficie 00:00: Me dical ncy ncy 00 Center following following thoracic thoracic surgery surgery Coronary Coronary Disease [facility] artery artery [facility]10 [facility] disease of disease of 00:00: [place] [facility] artery of artery of [place] 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 00:00: Me dical 00 [place] Essential Essential Disease Active [facility] hypertensi hypertensi 5-10 [facility] on on 00:00: Medical 00 [place] 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 5-10 [facility] sterolemia sterolemia 00:00: Me dical 00 Center Allergies, Adverse Reactions, Alerts Allergy Allergy Status Severity Reaction(s) Onset Inactive Treating Comm ents Source Name Type Date Date Clinician NO KNOWN Allergy Active [facility] ALLERGIE S NO KNOWN Drug Active [facility] ALLERGIE Class ity of S [facility] Family History Family Member Diagnosis Comments Start Date Stop Date Source Natural father Diabetes [facility] Natural father Stroke [facility] Natural mother Diabetes [facility] Natural mother Stroke [facility] Social History Social Habit Start Date Stop Date Quantity Comments Source History [facility]Med Medical [facility] History [facility] 2021-12-14 2021-12-[address] [facility] Transport Med 00:00:00 00:00:[address] [facility] 2021-12-14 2021-12-[address] [facility] Housing Unable to 00:00:00 00:00:00 Medical Center Pay History [facility] 2021-12-14 2021-12-[address] [facility] Housing Places 00:00:00 00:00:00 Medical Ce nter Lived History [facility] 2021-12-14 2021-12-[address] [facility] Housing Homeless 00:00:00 00:00:00 Medical Center Last Year Alcohol intake 2021-12-14 2021-12-14 [facility]00 of alcohol [facility] Center (finding) Exposure to 2021-09-20 2021-09-30 Not sure University SARS-CoV-2 00:00:00 10:11:00 [facility] (event) [facility] History of 1989-08-[address] [facility] tobacco use 00:00:00 Medical Cente r Sex Assigned At [address] [facility] 00:00:00 00:00:00 Medical Center Smoking Status Start Date Stop Date Source Former smoker [facility] Center Unknown if ever smoked [facility] Medical Branch Medications Ordered Filled Start Stop Current Ordering Indication Dosage Frequency Signature Comments Components Source Medication Medication Date Date Medication? Clinician (SIG) Name Name pantoprazol Yes 40mg QD Take [address] [facility] e 9-22 tablet (40 [facility] (PROTONIX) 00:00: mg total) Me dical 40 MG 00 by mouth Center tablet daily All further refills through outpatient doctors. pantoprazol Yes 40mg QD Take [address] [facility] e 9-22 tablet (40 [facility] (PROTONIX) 00:00: mg total) Me dical 40 MG 00 by mouth Center tablet daily All further refills through outpatient doctors. pantoprazol Yes 40mg QD Take [address] [facility] e 9-22 tablet (40 [facility] (PROTONIX) 00:00: mg total) Me dical 40 MG 00 by mouth Center tablet daily All further refills through outpatient doctors. pantoprazol Yes 40mg QD Take [address] [facility] e - tablet (40 [facility] (PROTONIX) 00:00: mg total) Me dical 40 MG 00 by mouth Center tablet daily All further refills through outpatient doctors. pantoprazol Yes 40mg QD Take [address] [facility] e - tablet (40 [facility] (PROTONIX) 00:00: mg total) Me dical 40 MG 00 by mouth Center tablet daily All further refills through outpatient doctors. amLODIPine 2022- No 10mg QD Take [address] [facility] (NORVASC) 12-26 tablet (10 [facility] 10 MG 00:00: 23:59 mg total) Medica l tablet 00 :00 by mouth Center daily All further refills through outpatient doctors. amLODIPine 2022- No 10mg QD Take [address] [facility] (NORVASC) 12-26 tablet (10 [facility] [facility] 10 MG 00:00: 23:59 mg total) Medica l tablet 00 :00 by mouth Center daily All further refills through outpatient doctors. amLODIPine 0 2022- No 10mg QD Take [address] [facility] (NORVASC) 12-26 tablet (10 [facility] [facility] 10 MG 00:00: 23:59 mg total) Medica l tablet 00 :00 by mouth Center daily All further refills through outpatient doctors. amLODIPine 2022- No 10mg QD Take [address] [facility] (NORVASC) 12-26 tablet (10 [facility] [facility] 10 MG 00:00: 23:59 mg total) Medica l tablet 00 :00 by mouth Center daily All further refills through outpatient doctors. amLODIPine 2022- No 10mg QD Take [address] [facility] (NORVASC) 12-26 tablet (10 [place] [facility] 10 MG 00:00: 23:59 mg total) Medica l tablet 00 :00 by mouth Center daily All further refills through outpatient doctors. aspirin 81 Yes 81mg QD Take [address] MG EC 12-25 by mouth [facility] tablet 13:54: daily. [address] omega-3 Yes 1{capsu QD Take 1 [facility] fatty 9-21 le} capsule by [facility] acids-vitam 13:54: mouth Medic al in E 1,000 44 daily. [facility] Cap saw Yes 160mg QD Take [address] palmetto 9-21 mg by [facility] 160 MG 13:54: mouth Medical capsule 44 daily. [place] multivitami Yes 1{tbl} QD Take [address] [facility] per 9-21 tablet by [facility] tablet 13:54: mouth Medical 44 daily. [place] rosuvastati Yes 20mg QD Take [address] n (CRESTOR) 9-21 by mouth [facility] 10 MG 13:54: daily. Medical tablet 44 [place] aspirin 81 Yes 81mg QD Take [address] MG EC 9-21 by mouth [facility] tablet 13:54: daily. Medical 44 [place] omega-3 Yes 1{capsu QD Take 1 [facility] fatty 9-21 le} capsule by [facility] acids-vitam 13:54: mouth Medic al in E 1,000 44 daily. [facility] Cap saw Yes 160mg QD Take [address] pal[place]to 9-21 mg by [facility] 160 MG 13:54: mouth Medical capsule 44 daily. [place] multivitaky Yes 1{tbl} QD Take [address] n per 9-21 tablet by [facility] tablet 13:54: mouth Medical 44 daily. [place] rosuvastati Yes 20mg QD Take [address] n (CRESTOR) 9-21 by mouth [facility] 10 MG 13:54: daily. Medical tablet 44 [place] aspirin 81 Yes 81mg QD Take [address] MG EC 9-21 by mouth [facility] tablet 13:54: daily. Medical 44 [place] omega-3 Yes 1{capsu QD Take 1 [facility] fatty 9-21 le} capsule by [facility] acids-vitam 13:54: mouth Medic al in E 1,000 44 daily. [facility] Cap saw Yes 160mg QD Take [address] palmetto 9-21 mg by [facility] 160 MG 13:54: mouth Medical capsule 44 daily. [place] multivitaky Yes 1{tbl} QD Take [address] n per 9-21 tablet by [facility] tablet 13:54: mouth Medical 44 daily. [place] rosuvastati Yes 20mg QD Take [address] n (CRESTOR) 9-21 by mouth [facility] 10 MG 13:54: daily. Medical tablet 44 [place] aspirin 81 0 Yes 81mg QD Take [address] MG EC 9-21 by mouth [facility] tablet 13:54: daily. Medical 44 [place] omega-3 Yes 1{capsu QD Take 1 [facility] fatty 9-21 le} capsule by [facility] acids-vitam 13:54: mouth Medic al in E 1,000 44 daily. [place] mg Cap saw Yes 160mg QD Take [address] pal[place]to 9-21 mg by [facility] 160 MG 13:54: mouth Medical capsule 44 daily. [place] multivitami Yes 1{tbl} QD Take [address] n per 9-21 tablet by [facility] tablet 13:54: mouth Medical 44 daily. [place] rosuvastati Yes 20mg QD Take [address] [facility] n (CRESTOR) 9-21 by mouth [facility] 10 MG 13:54: daily. Medical tablet 44 [place] aspirin 81 0 Yes 81mg QD Take [address] MG EC 9-21 by mouth [facility] tablet 13:54: daily. Medical 44 [place] omega-3 Yes 1{capsu QD Take 1 [facility] fatty 9-21 le} capsule by [facility] acids-vitam 13:54: mouth Medic al in E 1,000 44 daily. [place] mg Cap saw Yes 160mg QD Take [address] palmetto 9-21 mg by [facility] 160 MG 13:54: mouth Medical capsule 44 daily. [place] multivitami Yes 1{tbl} QD Take [address] n per 9-21 tablet by [facility] tablet 13:54: mouth Medical 44 daily. [place] rosuvastati 0 Yes 20mg QD Take [address] [facility] n (CRESTOR) 9-21 by mouth [facility] 10 MG 13:54: daily. Medical tablet 44 [place] simvastatin 0 2021- No 80mg QD Take [address] [facility] (ZOCOR) 80 -25 12- by mouth [facility] MG tablet 08:10: 00:00 nightly. Med ical 21 :00 Center simvastatin 2021-0 202- No 80mg QD Take [address] [facility] (ZOCOR) 80 12-25 by mouth [facility] MG tablet 08:10: 00:00 nightly. Med ical 21 :00 Center simvastatin 2021-0 2022- No 80mg QD Take [address] (ZOCOR) 80 12-25 by mouth [facility] MG tablet 08:10: 00:00 nightly. Med ical 21 :00 Center simvastatin 2021-0 2022- No 80mg QD Take [address] (ZOCOR) 80 12-25 by mouth [facility] MG tablet 08:10: 00:00 nightly. Med ical 21 :00 Center simvastatin 2021-0 2021- No 80mg QD Take [address] [facility] (ZOCOR) 80 12-25 by mouth [facility] MG tablet 08:10: 00:00 nightly. Med ical 21 :00 [place] dexAMETHaso Yes [address] [facility] ne - times a [facility] (DECADRON) 00:00: day for 3 Me dical 4 MG tablet 00 days (and Megan ter also the evening of 12/25), then 1 tab twice a day for 3 days, then 1 tab daily for 3 days, then stop. Take with food.. carboxymeth Yes 2[drp] Q.2D Place [address] ylcellulose 12-25 drops into [facility] sodium 00:00: both eyes Medica l (CELLUVISC, 00 5 (five) Cent er REFRESH) 1 times % DpGe daily And as needed. It is over-the-c ounter. polyethylen Yes Take [address] [facility] e glycol -21 dose twice [facility] (GLYCOLAX) 00:00: a day, august edical 17 gram 00 decrease Center packet to daily if having frequent BMs. It is over-the-c ounter. dexAMETHaso Yes [address] [facility] ne 9-21 times a [facility] (DECADRON) 00:00: day for 3 Me dical 4 MG tablet 00 days (and Megan ter also the evening of 12/25), then 1 tab twice a day for 3 days, then 1 tab daily for 3 days, then stop. Take with food.. carboxymeth 2022-0 Yes 2[drp] Q.2D Place [address] ylcellulose 9-21 drops into [facility] sodium 00:00: both eyes Medica l (CELLUVISC, 00 5 (five) Cent er REFRESH) 1 times % DpGe daily And as needed. It is over-the-c ounter. polyethylen 2022-0 Yes Take [address] [facility] e glycol 9-21 dose twice [facility] (GLYCOLAX) 00:00: a day, august M edical 17 gram 00 decrease Center packet to daily if having frequent BMs. It is over-the-c ounter. dexAMETHaso 2022-0 Yes [address] [facility] ne 9-21 times a [facility] (DECADRON) 00:00: day for 3 Me dical 4 MG tablet 00 days (and Megan ter also the evening of 12/25), then 1 tab twice a day for 3 days, then 1 tab daily for 3 days, then stop. Take with food.. carboxymeth 2022-0 Yes 2[drp] Q.2D Place [address] ylcellulose 9-21 drops into [facility] sodium 00:00: both eyes Medica l (CELLUVISC, 00 5 (five) Cent er REFRESH) 1 times % DpGe daily And as needed. It is over-the-c ounter. polyethylen 2022-0 Yes Take [address] [facility] e glycol 9-21 dose twice [facility] (GLYCOLAX) 00:00: a day, august edical 17 gram 00 decrease Center packet to daily if having frequent BMs. It is over-the-c ounter. dexAMETHaso 2022-0 Yes [address] [facility] ne 9-21 times a [facility] (DECADRON) 00:00: day for 3 Me dical 4 MG tablet 00 days (and Megan ter also the evening of 12/25), then 1 tab twice a day for 3 days, then 1 tab daily for 3 days, then stop. Take with food.. carboxymeth 2022-0 Yes 2[drp] Q.2D Place [address] ylcellulose 9-21 drops into [facility] sodium 00:00: both eyes Medica l (CELLUVISC, 00 5 (five) Cent er REFRESH) 1 times % DpGe daily And as needed. It is over-the-c ounter. polyethylen Yes Take [address] [facility] e glycol 9-21 dose twice [facility] (GLYCOLAX) 00:00: a day, august edical 17 gram 00 decrease Center packet to daily if having frequent BMs. It is over-the-c ounter. dexAMETHaso Yes [address] [facility] ne - times a [facility] (DECADRON) 00:00: day for 3 Me dical 4 MG tablet 00 days (and Megan ter also the evening of 12/25), then 1 tab twice a day for 3 days, then 1 tab daily for 3 days, then stop. Take with food.. carboxymeth Yes 2[drp] Q.2D Place [address] ylcellulose 12-25 drops into [facility] sodium 00:00: both eyes Medica l (CELLUVISC, 00 5 (five) Cent er REFRESH) 1 times % DpGe daily And as needed. It is over-the-c ounter. polyethylen Yes Take [address] [facility] e glycol 9-21 dose twice [facility] (GLYCOLAX) 00:00: a day, august edical 17 gram 00 decrease Center packet to daily if having frequent BMs. It is over-the-c ounter. hydrALAZINE 2022- No 50mg [id number] Take [address] [facility] (APRESOLINE 12-25 [id number] tablet (50 [facility] ) 50 MG 00:00: 23:59 3D mg total) Medi zandra tablet 00 :00 by mouth 3 Center (three) times daily Hold if your systolic blood pressure is less than 120. All further refills through outpatient doctors. sodium 2022- No 2g Take [address] [facility] chloride 1 12-25 tablets (2 [facility] gram tablet 00:00: 23:59 g total) M edical 00 :00 by mouth 3 Center (three) times daily with meals All further refills through outpatient doctors. metoprolol 2022- No 25mg QD Take [address] [facility] [address] succinate 12-25 tablet (25 [facility] (TOPROL-XL) 00:00: 23:59 mg total) Medical 25 MG 24 hr 00 :00 by mouth Cent er tablet daily Hold if your heart rate is less than 50 or systolic blood pressure is less than 110. hydrALAZINE 2021-2022- No 50mg [id number] Take [address] [facility] (APRESOLINE 12-25 [id number] tablet (50 [facility] ) 50 MG 00:00: 23:59 3D mg total) Medi zandra tablet 00 :00 by mouth 3 Center (three) times daily Hold if your systolic blood pressure is less than 120. All further refills through outpatient doctors. sodium 2022- No 2g Take [address] [facility] chloride 1 12-25 tablets (2 [facility] gram tablet 00:00: 23:59 g total) M edical 00 :00 by mouth 3 Center (three) times daily with meals All further refills through outpatient doctors. metoprolol 2021-2022- No 25mg QD Take [address] [facility] [address] succinate 12-25 tablet (25 [facility] (TOPROL-XL) 00:00: 23:59 mg total) Medical 25 MG 24 hr 00 :00 by mouth Cent er tablet daily Hold if your heart rate is less than 50 or systolic blood pressure is less than 110. hydrALAZINE 2022- No 50mg [id number] Take [address] [facility] [address] (APRESOLINE 12-25 [id number] tablet (50 [facility] ) 50 MG 00:00: 23:59 3D mg total) Medi zandra tablet 00 :00 by mouth 3 Center (three) times daily Hold if your systolic blood pressure is less than 120. All further refills through outpatient doctors. sodium 2022- No 2g Take [address] [facility] chloride 1 12-25 tablets (2 [facility] gram tablet 00:00: 23:59 g total) M edical 00 :00 by mouth 3 Center (three) times daily with meals All further refills through outpatient doctors. metoprolol 2021-2022- No 25mg QD Take [address] [facility] [address] succinate 12-25 tablet (25 [facility] (TOPROL-XL) 00:00: 23:59 mg total) Medical 25 MG 24 hr 00 :00 by mouth Cent er tablet daily Hold if your heart rate is less than 50 or systolic blood pressure is less than 110. hydrALAZINE 2021-2022- No 50mg [id number] Take [address] [facility] [address] (APRESOLINE 12-25 [id number] tablet (50 [facility] ) 50 MG 00:00: 23:59 3D mg total) Medi zandra tablet 00 :00 by mouth 3 Center (three) times daily Hold if your systolic blood pressure is less than 120. All further refills through outpatient doctors. sodium 2022- No 2g Take [address] [facility] chloride 1 12-25 tablets (2 [facility] gram tablet 00:00: 23:59 g total) M edical 00 :00 by mouth 3 Center (three) times daily with meals All further refills through outpatient doctors. metoprolol 2022- No 25mg QD Take [address] [facility] [address] succinate 12-25 tablet (25 [facility] (TOPROL-XL) 00:00: 23:59 mg total) Medical 25 MG 24 hr 00 :00 by mouth Cent er tablet daily Hold if your heart rate is less than 50 or systolic blood pressure is less than 110. hydrALAZINE 2022- No 50mg [id number] Take [address] [facility] [address] (APRESOLINE 12-25 [id number] tablet (50 [facility] ) 50 MG 00:00: 23:59 3D mg total) Medi zandra tablet 00 :00 by mouth 3 Center (three) times daily Hold if your systolic blood pressure is less than 120. All further refills through outpatient doctors. sodium 2022- No 2g Take [address] [facility] chloride 1 12-25 tablets (2 [facility] gram tablet 00:00: 23:59 g total) M edical 00 :00 by mouth 3 Center (three) times daily with meals All further refills through outpatient doctors. metoprolol 2021-2022- No 25mg QD Take [address] [facility] [address] succinate 12-25 tablet (25 [facility] (TOPROL-XL) 00:00: 23:59 mg total) Medical 25 MG 24 hr 00 :00 by mouth Cent er tablet daily Hold if your heart rate is less than 50 or systolic blood pressure is less than 110. HYDROcodone 2021-2021- No 1{tbl} Take [address] -acetaminop 12-25 tablet by [facility] (NORCO 00:00: 23:59 mouth Medic al 10-325) 00 :00 every 6 Center 10-325 mg (six) per tablet hours as needed (moderate to severe acute pain) for up to 7 days. Max Daily Amount: 4 tablets HYDROcodone 2021- No 1{tbl} Take [address] -acetaminop -01-01 tablet by [facility] (NORCO 00:00: 23:59 mouth Medic al 10-325) 00 :00 every 6 Center 10-325 mg (six) per tablet hours as needed (moderate to severe acute pain) for up to 7 days. Max Daily Amount: 4 tablets HYDROcodone 2021- No 1{tbl} Take [address] -acetaminop 12-25 tablet by [facility] (NORCO 00:00: 23:59 mouth Medic al 10-325) 00 :00 every 6 Center 10-325 mg (six) per tablet hours as needed (moderate to severe acute pain) for up to 7 days. Max Daily Amount: 4 tablets HYDROcodone No 1{tbl} Take [address] -acetaminop 12-25 tablet by [facility] (NORCO 00:00: 23:59 mouth Medic al 10-325) 00 :00 every 6 Center 10-325 mg (six) per tablet hours as needed (moderate to severe acute pain) for up to 7 days. Max Daily Amount: 4 tablets HYDROcodone 2021- No 1{tbl} Take [address] -acetaminop 12-25 tablet by [facility] (NORCO 00:00: 23:59 mouth Medic al 10-325) 00 :00 every 6 Center 10-325 mg (six) per tablet hours as needed (moderate to severe acute pain) for up to 7 days. Max Daily Amount: 4 tablets dexAMETHaso No Small cell 8mg QD Take [address] [facility] ne 12-20 carcinoma tablets (8 [facility] (DECADRON) 00:00: 00:00 of prostate mg total) Medical 4 MG tablet 00 :00 (HCC) by mouth Megan [facility] daily for 3 days Take it on days 2, 3, and 4.. ondansetron 2022-0 2022- No Small cell 8mg Take [address] [facility] [address] (ZOFRAN) 8 12-20 carcinoma tablet (8 [facility] MG tablet 00:00: 00:00 of prostate mg total) Medical 00 :00 ([facility]) by mouth Center every 8 (eight) hours Take it on days 2, 3, and 4.. dexAMETHaso 2022-0 2022- No Small cell 8mg QD Take [address] [address] ne 12-20 carcinoma tablets (8 [facility] (DECADRON) 00:00: 00:00 of prostate mg total) Medical 4 MG tablet 00 :00 ([facility]) by mouth Megan [facility] daily for 3 days Take it on days 2, 3, and 4.. ondansetron 2-0 2021- No Small cell 8mg Take [address] [facility] [address] (ZOFRAN) 8 12-20 carcinoma tablet (8 [facility] MG tablet 00:00: 00:00 of prostate mg total) Medical 00 :00 ([facility]) by mouth Center every 8 (eight) hours Take it on days 2, 3, and 4.. dexAMETHaso 2-0 202- No Small cell 8mg QD Take [address] [address] ne 12-20 carcinoma tablets (8 [facility] (DECADRON) 00:00: 00:00 of prostate mg total) Medical 4 MG tablet 00 :00 ([facility]) by mouth Megan [facility] daily for 3 days Take it on days 2, 3, and 4.. ondansetron 2-0 2022- No Small cell 8mg Take [address] [facility] [address] (ZOFRAN) 8 12-20 carcinoma tablet (8 [facility] MG tablet 00:00: 00:00 of prostate mg total) Medical 00 :00 ([facility]) by mouth Center every 8 (eight) hours Take it on days 2, 3, and 4.. dexAMETHaso 2022-0 2022- No Small cell 8mg QD Take [address] [address] ne 12-20 carcinoma tablets (8 [facility] (DECADRON) 00:00: 00:00 of prostate mg total) Medical 4 MG tablet 00 :00 ([facility]) by mouth Megan [facility] daily for 3 days Take it on days 2, 3, and 4.. ondansetron 2021- No Small cell 8mg Take [address] [facility] [address] (ZOFRAN) 8 12-20 carcinoma tablet (8 [facility] MG tablet 00:00: 00:00 of prostate mg total) Medical 00 :00 (HCC) by mouth Center every 8 (eight) hours Take it on days 2, 3, and 4.. dexAMETHaso 2021- No Small cell 8mg QD Take [address] [facility] [address] ne 12-20 carcinoma tablets (8 [facility] (DECADRON) 00:00: 00:00 of prostate mg total) Medical 4 MG tablet 00 :00 (HCC) by mouth Megan [facility] daily for 3 days Take it on days 2, 3, and 4.. ondansetron 2021- No Small cell 8mg Take [address] [facility] [address] (ZOFRAN) 8 12-20 carcinoma tablet (8 [facility] MG tablet 00:00: 00:00 of prostate mg total) Medical 00 :00 (HCC) by mouth Center every 8 (eight) hours Take it on days 2, 3, and 4.. saw Yes 160mg QD Take [address] palmetto 6-12 mg by [facility] 160 MG 11:40: mouth Medical capsule 00 daily. [place] aspirin 81 Yes 81mg QD Take [address] MG EC 6-12 by mouth [facility] tablet 11:39: daily. Medical 55 [place] simvastatin Yes 80mg QD Take [address] (ZOCOR) 80 6-12 by mouth [facility] MG tablet 11:39: nightly. [facility] zandra 55 [place] omega-3 Yes 1{capsu QD Take 1 [facility] fatty 6-12 le} capsule by [facility] acids-vitam 11:39: mouth Medic al in E 1,000 55 daily. [place] mg Cap multivitami Yes 1{tbl} QD Take [address] n per 6-12 tablet by [facility] tablet 11:39: mouth Medical 55 daily. [place] rosuvastati Yes 20mg QD Take [address] n (CRESTOR) 6-12 by mouth Luke s 10 MG 11:39: daily. Medical tablet 55 [place] Immunizations Ordered Filled Immunization Date Status Comments [facility] e Immunization Name Name BEBTELOVIMAB 2021-10-01 Completed University o f 00:00:00 [facility] Vital Signs Vital Name Observation Time Observation Value Comments Source WEIGHT 2021-12-21 06:05:00 103.964 kg WEIGHT 2021-12-20 06:00:00 103.647 kg WEIGHT 2021-12-19 06:00:00 103.692 kg WEIGHT 2021-12-18 06:33:00 104.237 kg WEIGHT 2021-12-16 06:00:00 104.736 kg WEIGHT 2021-12-15 05:47:00 104.191 kg WEIGHT 2021-12-14 06:00:00 104.736 kg WEIGHT 2021-12-13 01:13:00 104.237 kg HEIGHT 2021-12-13 00:00:00 188 cm WEIGHT 2021-12-13 00:00:00 104 kg WEIGHT 2021-12-21 06:05:00 103.964 kg WEIGHT 2021-12-20 06:00:00 103.647 kg WEIGHT 2021-12-19 06:00:00 103.692 kg WEIGHT 2021-12-18 06:33:00 104.237 kg WEIGHT 2021-12-16 06:00:00 104.736 kg WEIGHT 2021-12-15 05:47:00 104.191 kg WEIGHT 2021-12-14 06:00:00 104.736 kg WEIGHT 2021-12-13 01:13:00 104.237 kg HEIGHT 2021-12-13 00:00:00 188 cm WEIGHT 2021-12-13 00:00:00 104 kg WEIGHT 2021-12-21 06:05:00 103.964 kg WEIGHT 2021-12-20 06:00:00 103.647 kg WEIGHT 2021-12-19 06:00:00 103.692 kg WEIGHT 2021-12-18 06:33:00 104.237 kg WEIGHT 2021-12-16 06:00:00 104.736 kg WEIGHT 2021-12-15 05:47:00 104.191 kg WEIGHT 2021-12-14 06:00:00 104.736 kg WEIGHT 2021-12-13 01:13:00 104.237 kg HEIGHT 2021-12-13 00:00:00 188 cm WEIGHT 2021-12-13 00:00:00 104 kg Systolic blood 2021-10-01 20:06:00 143 mm[Hg] Univer sity of [facility] Diastolic blood 2021-10-01 20:06:00 71 mm[Hg] Unive rsity [facility] Heart rate 2021-10-01 20:06:00 57 /min [facility] Body temperature 2021-10-01 20:06:00 35.61 Arabella [facility] height 2021-10-01 20:06:00 [facility]5 [facility] Body weight 2021-10-01 20:06:00 111.131 kg [facility] BMI 2021-10-01 20:06:00 30.62 kg/m2 [facility] Systolic blood 2021-12-25 12:04:00 117 mm[Hg] [facility] Diastolic blood 2021-12-25 12:04:00 62 mm[Hg] [facility] Heart rate 2021-12-25 12:04:00 57 /min [facility] Body temperature 2021-12-25 12:04:00 36.06 Arabella [facility] Respiratory rate 2021-12-25 12:04:00 18 /min [facility] Oxygen saturation in 2021-12-25 12:04:00 96 /min [facility] Arterial blood by Medical Ce nter Pulse oximetry Body weight 2021-12-21 06:05:00 103.964 kg [facility] BMI 2021-12-21 06:05:00 29.41 kg/m2 [facility] Body height 2021-12-13 00:00:00 188 cm [facility] Procedures Procedure Date / Time Performing Clinician Source Performed POCT-GLUCOSE METER 2021-12-25 12:06:00 Hans [facility] POCT-GLUCOSE METER 2021-12-25 08:28:00 Hans [facility] BASIC METABOLIC PANEL 2021-12-25 06:31:00 Hans Christina [facility] MAGNESIUM 2021-12-25 06:31:00 [facility] ONLY[facility] 2021-12-25 04:29:00 CarolineFlor henry [facility] POCT-GLUCOSE METER 2021-12-24 22:09:00 [facility] 2021-12-24 17:09:00 [facility] PO[facility]UCOSE METER 2021-12-24 12:21:00 [facility] SODIUM, RANDOM URINE 2021-12-24 08:30:00 [facility] URINALYSIS W/ MICROSCOPIC 2021-12-24 08:30:00 Stas [facility] SODIUM 2021-12-24 08:30:00 [facility] OSMOLALITY, SERUM 2021-12-24 [facility]:30[facility] 2021-12-24 08:30:[facility] POCT-GLUCOSE METER 2021-12-24 08:05:00 [facility] BASIC METABOLIC PANEL 2021-12-24 04:16:00 [facility] 2021-12-24 04:16:00 Yamileon[facility] CBC (HEMOGRAM ONLY) 2021-12-24 04:16:00 [facility] POCT-GLUCOSE METER 2021-12-23 16:25:00 [facility] POCT-[facility]UCOSE METER 2021-12-23 12:02:00 [facility] POCT-GLUCOSE METER 2021-12-23 08:46:00 [facility] BASIC METABOLIC PANEL 2021-12-23 03:12:00 Giveon, [facility] MAGNESIUM 2021-12-23 03:12:00 [facility] (HEMO[facility] ONLY) 2021-12-23 03:12:00 Flor Velazquez [facility] POCT-GLUCOSE METER 2021-12-22 22:22:00 Giveon [facility] POCT-GLUCOSE METER 2021-12-22 17:01:00 Giveon [facility] POCT-GLUCOSE METER 2021-12-22 12:36:00 Giveon [facility] POCT-GLUCOSE METER 2021-12-22 08:07:00 Giveon [facility] BASIC METABOLIC PANEL 2021-12-22 05:22:00 Giveon, [facility] MAGNESIUM 2021-12-22 05:22:00 Yamileon [facility] POCT-GLUCOSE METER 2021-12-21 21:38:00 Giveelaine [facility] POCT-GLUCOSE METER 2021-12-21 16:32:00 Stas [facility] POCT-GLUCOSE METER 2021-12-21 12:03:00 Giveon [facility] POCT-GLUCOSE METER 2021-12-21 07:58:00 Stas [facility] BASIC METABOLIC PANEL 2021-12-21 05:09:00 Stas [facility] CBC W/PLT COUNT & AUTO 2021-12-21 05:09:00 Stas [facility] MAGNESIUM 2021-12-21 05:09:00 Stas [facility] CBC W/PLT COUNT & AUTO 2021-12-21 05:09:00 Stas [facility] POCT-GLUCOSE METER 2021-12-20 21:47:00 Stas [facility] HEPATIC FUNCTION PANEL 2021-12-20 16:51:00 Diego Gomes [facility] HEPATITIS B PANEL 2021-12-20 16:51:00 Shea Ramsey [facility] POCT-GLUCOSE METER 2021-12-20 16:08:00 [facility] POCT-GLUCOSE METER 2021-12-20 13:15:00 Giveon [facility] POCT-GLUCOSE METER 2021-12-20 08:32:00 Giveon [facility] BASIC METABOLIC PANEL 2021-12-20 04:18:00 Giveon [facility] MAGNESIUM 2021-12-20 04:18:00 Giveon [facility] CHROMOGRANIN A 2021-12-20 04:16:00 Durkal, Vipal Pratin [facility] CBC W/PLT COUNT & AUTO 2021-12-20 04:16:00 Giveon [facility] CBC W/PLT COUNT & AUTO 2021-12-20 04:16:00 [facility] POCT-GLUCOSE METER 2021-12-19 21:35:00 [facility] POCT-GLUCOSE METER 2021-12-19 16:53:00 [facility] POCT-GLUCOSE METER 2021-12-19 11:09:00 [facility] CBC W/PLT COUNT & AUTO 2021-12-19 07:51:00 Giveon, [facility] CBC W/PLT COUNT & AUTO 2021-12-19 07:51:00 [facility] POCT-GLUCOSE METER 2021-12-19 07:20:00 Giveelaine [facility] BASIC METABOLIC PANEL 2021-12-19 04:41:00 Giveon, [facility] MAGNESIUM 2021-12-19 04:41:00 [facility] POCT-GLUCOSE METER 2021-12-18 21:19:00 Giveon, [facility] POCT-GLUCOSE METER 2021-12-18 17:39:00 Giveon, [facility] POCT-GLUCOSE METER 2021-12-18 13:01:00 Giveon, [facility] POCT-GLUCOSE METER 2021-12-18 08:53:00 [facility] BASIC METABOLIC PANEL 2021-12-18 04:27:00 [facility] CBC W/PLT COUNT & AUTO 2021-12-18 04:27:00 [facility] MAGNESIUM 2021-12-18 04:27:00 [facility] CBC W/PLT COUNT & AUTO 2021-12-18 04:27:00 [facility] POCT-GLUCOSE METER 2021-12-17 21:18:00 [facility] POCT-[facility]UCOSE METER 2021-12-17 14:31:00 [facility] POCT-GLUCOSE METER 2021-12-17 11:23:00 [facility] POCT-GLUCOSE METER 2021-12-17 08:36:00 [facility] BASIC METABOLIC PANEL 2021-12-17 04:27:00 [facility] CBC W/PLT COUNT & AUTO 2021-12-17 04:27:00 [facility] 2021-12-17 04:27:00 [facility] CBC W/PLT COUNT & AUTO 2021-12-17 04:27:00 [facility] POCT-GLUCOSE METER 2021-12-16 21:08:00 [facility] POCT-GLUCOSE METER 2021-12-16 18:09:00 [facility] TISSUE EXAM 2021-12-16 17:21:00 Dante Edward [facility] CT 2021-12-16 17:18:00 [facility]INJECTIO Cente r N CBC W/PLT COUNT & AUTO 2021-12-16 13:24:00 [facility] BASIC METABOLIC PANEL 2021-12-16 13:24:00 [facility] MAGNESIUM 2021-12-16 13:24:00 Yamile [facility] CBC W/PLT COUNT & AUTO 2021-12-16 13:24:00 Stas [facility] POCT-GLUCOSE METER 2021-12-16 12:19:00 [facility] POCT-GLUCOSE METER 2021-12-16 08:30:00 Yamile [facility] POCT-GLUCOSE METER 2021-12-16 05:13:00 [facility] SARS-COV2/RT-PCR ([facility] & 2021-12-15 23:17:00 Guillermo Rivera [facility] REF LABS) [place] POCT-GLUCOSE METER 2021-12-15 22:53:00 [facility] POCT-GLUCOSE METER 2021-12-15 21:02:00 [facility] PROTHROMBIN TIME/INR 2021-12-15 18:04:00 Diego Gomes [facility] POCT-GLUCOSE METER 2021-12-15 17:34:00 Stas [facility] POCT-GLUCOSE METER 2021-12-15 13:11:00 [facility] POCT-GLUCOSE METER 2021-12-15 09:29:00 [facility] CBC W/PLT COUNT & AUTO 2021-12-15 04:36:00 Stas [facility] BASIC METABOLIC PANEL 2021-12-15 04:36:00 [facility] MAGNESIUM 2021-12-15 04:36:00 [facility] CBC W/PLT COUNT & AUTO 2021-12-15 04:36:00 Stas [facility] POCT-GLUCOSE METER 2021-12-14 21:19:00 [facility] CARCINOEMBRYONIC ANTIGEN 2021-12-14 18:59:00 Diego Gomes [facility] (CEA) [place] CARBOHYDRATE ANTIGEN 19-9 2021-12-14 18:59:00 Durkal, Vipal Prat in [facility] (CA 19-9) Center TESTOSTERONE, TOTAL 2021-12-14 18:59:00 Durkal, [facility] CHROMO[facility] 2021-12-14 18:06:00 Durformerly [facility] POCT-GLUCOSE METER 2021-12-14 17:39:00 [facility] POCT-GLUCOSE METER 2021-12-14 12:01:00 [facility] POCT-GLUCOSE METER 2021-12-14 08:00:00 [facility] CBC W/PLT COUNT & AUTO 2021-12-14 05:08:00 [facility] BASIC METABOLIC PANEL 2021-12-14 05:08:00 [facility] MAGNESIUM 2021-12-14 05:08:00 [facility] CBC W/PLT COUNT & AUTO 2021-12-14 05:08:00 [facility] POCT-GLUCOSE METER 2021-12-13 21:53:[address] [facility]IN WITHOUT IV 2021-12-13 21:17:00 Dante Edward [facility] CTA BRAIN 2021-12-13 21:17:00 Dante Edward [facility] CTA CAROTID 2021-12-13 21:17:00 Patrick Recinos [facility] CT CHEST WITH IV CONTRAST 2021-12-13 21:17:00 Dante Edward [facility] CT ABDOMEN/PELVIS WITH IV 2021-12-13 21:17:00 Dante Edward [facility] MR BRAIN WITH & WITHOUT IV 2021-12-13 21:11:00 Dante Edward [facility] MR LUMBAR SPINE WITH & 2021-12-13 21:09:00 Durkal, Vipal [facility] WITHOUT IV CONTRAST Center TESTOSTERONE, TOTAL 2021-12-13 18:04:00 Neason, [facility] POCT-GLUCOSE METER 2021-12-13 17:17:00 Giveelaine [facility] ECG 12-LEAD 2021-12-13 12:29:55 Unknown, Hl7 [facility] ECG 12-LEAD 2021-12-13 12:29:55 Unknown, Hl7 [facility] ECG 12-LEAD 2021-12-13 12:29:09 Giveon, [facility] ECG 12-LEAD 2021-12-13 12:29:09 Unknown, Hl7 [facility] ECG 12-LEAD 2021-12-13 12:29:09 Unknown, 7 [facility] ECG 12-LEAD 2021-12-13 12:24:21 Unknown, 7 [facility] ECG 12-LEAD 2021-12-13 12:24:21 Unknown, 7 [facility] POCT-GLUCOSE METER 2021-12-13 12:10:00 Stas [facility] 2D ECHO W/ DOPPLER 2021-12-13 08:53:11 Stas [facility] (CW/PW/COLOR) [place] XR CHEST 1 VIEW PORTABLE / 2021-12-13 08:13:00 Hans Christina [facility] BEDSIDE Center PROTHROMBIN TIME/INR 2021-12-13 03:50:00 Neshira [facility] MAGNESIUM 2021-12-13 03:50:00 Neshira [facility] COMPREHENSIVE METABOLIC 2021-12-13 03:50:[address] [facility] PANEL Center CBC W/PLT COUNT & AUTO 2021-12-13 03:50:00 Neshira [facility] DIFFERENTIAL Center PSA 2021-12-13 03:50:00 Neason [facility] CBC W/PLT COUNT & AUTO 2021-12-13 03:50:00 Neason [facility] EKG-SCANNED 2021-12-12 00:00:00 ProviderBernie [facility] ASSIGNMENT OF BENEFITS 2021-09-30 15:10:09 Doctor Unassigned, Un [facility] [place] [facility] Plan of Care Planned Activity Planned Date Details Comments Source Future Scheduled 2022-12-[address] [facility] 00:00:00 [facility] r Screening (12+) [code = Tobacco Cessation Counseling and Screening (12+)] Future Scheduled 2022-12-[address] [facility] 00:00:00 [facility] Cent[facility] r Screening (12+) [code = Tobacco Cessation Counseling and Screening (12+)] Future Scheduled 2022-12-[address] [facility] 00:00:00 [facility] Medical Cente r Screening (12+) [code = Tobacco Cessation Counseling and Screening (12+)] Future Scheduled 2022-12-[address] [facility] 00:00:00 [facility]ing [facility] Medical Cente r Screening (12+) [code = Tobacco Cessation Counseling and Screening (12+)] Future Scheduled 2022-12-[address] [facility] 00:00:00 Counseling and Medical Cente r Screening (12+) [code = Tobacco Cessation Counseling and Screening (12+)] Future Scheduled 2022-04-[address] [facility] 00:00:00 (12+) [code = Medical Center DEPRESSION SCREENING (12+)] Future Scheduled 2022-04-06 FALLS RISK SCREENING [facility] 00:00:00 [code = FALLS RISK Medical C enter SCREENING] Future Scheduled 2022-04-[address] [facility] 00:00:00 (12+) [code = Medical Center DEPRESSION SCREENING (12+)] Future Scheduled 2022-04-06 FALLS RISK SCREENING [facility] 00:00:00 [code = FALLS RISK Medical C enter SCREENING] Future Scheduled 2022-04-[address] [facility] 00:00:00 (12+) [code = Medical Center DEPRESSION SCREENING (12+)] Future Scheduled 2022-04-06 FALLS RISK SCREENING [facility] 00:00:00 [code = FALLS RISK Medical C enter SCREENING] Future Scheduled 2021-12-05 INFLUENZA VACCINE (#1) [facility]00 [code = INFLUENZA Medical Ce nter VACCINE (#1)] Future Scheduled 2021-12-05 INFLUENZA VACCINE (#1) [facility] 00:00:00 [code = INFLUENZA Medical Ce nter VACCINE (#1)] Future Scheduled 2021-12-05 INFLUENZA VACCINE (#1) [facility] 00:00:00 [code = INFLUENZA Medical Ce nter VACCINE (#1)] Future Scheduled 2021-12-05 INFLUENZA VACCINE (#1) [facility] 00:00:00 [code = INFLUENZA Medical Ce nter VACCINE (#1)] Future Scheduled 2021-12-05 INFLUENZA VACCINE (#1) [facility] 00:00:00 [code = INFLUENZA Medical Ce nter VACCINE (#1)] Future Scheduled 2021-04-[address] [facility] 00:00:00 (12+) [code = Medical Center DEPRESSION SCREENING (12+)] Future Scheduled 2021-04-06 FALLS RISK SCREENING [facility] 00:00:00 [code = FALLS RISK Medical C enter SCREENING] Future Scheduled 2021-04-[address] [facility] 00:00:00 (12+) [code = Medical Center DEPRESSION SCREENING (12+)] Future Scheduled 2021-04-06 FALLS RISK SCREENING [facility] 00:00:00 [code = FALLS RISK Medical C enter SCREENING] Future Scheduled 2017-04-[address] [facility] [facility] 00:00:00 WELLNESS (YEAR 2 or Medical Center FIRST YEAR if no IPPE) [code = MEDICARE ANNUAL WELLNESS (YEAR 2 or FIRST YEAR if no IPPE)] Future Scheduled 2017-04-[address] [facility] 00:00:00 WELLNESS (YEAR 2 or Medical Center FIRST YEAR if no IPPE) [code = MEDICARE ANNUAL WELLNESS (YEAR 2 or FIRST YEAR if no IPPE)] Future Scheduled 2017-04-[address] [facility] 00:00:00 WELLNESS (YEAR 2 or Medical Center FIRST YEAR if no IPPE) [code = MEDICARE ANNUAL WELLNESS (YEAR 2 or FIRST YEAR if no IPPE)] Future Scheduled 2017-04-[address] [facility] 00:00:00 WELLNESS (YEAR 2 or Medical Center FIRST YEAR if no IPPE) [code = MEDICARE ANNUAL WELLNESS (YEAR 2 or FIRST YEAR if no IPPE)] Future Scheduled 2017-04-[address] [facility] 00:00:00 WELLNESS (YEAR 2 or Medical Center FIRST YEAR if no IPPE) [code = MEDICARE ANNUAL WELLNESS (YEAR 2 or FIRST YEAR if no IPPE)] Future Scheduled 1995 SHINGLES VACCINES ([address] [facility] 00:00:00 of 2) [code = SHINGLES Medic al Center VACCINES (1 of 2)] Future Scheduled 1995 SHINGLES VACCINES ([address] [facility] 00:00:00 of 2) [code = SHINGLES Medic al Center VACCINES (1 of 2)] Future Scheduled 1995 SHINGLES VACCINES ([address] [facility] 00:00:00 of 2) [code = SHINGLES Medic al Center VACCINES (1 of 2)] Future Scheduled 1995 SHINGLES VACCINES ([address] [facility] 00:00:00 of 2) [code = SHINGLES Medic al Center VACCINES (1 of 2)] Future Scheduled 1995 SHINGLES VACCINES ([address] [facility] 00:00:00 of 2) [code = SHINGLES Medic al Center VACCINES (1 of 2)] Future Scheduled 1964-01-03 DTAP/TDAP/TD [facility]ACCINES [facility]:00 (1 - Tdap) [code = Medical C enter DTAP/TDAP/TD VACCINES (1 - Tdap)] Future Scheduled 1964-01-03 DTAP/TDAP/TD [facility]ACCINES [facility] 00:00:00 (1 - Tdap) [code = Medical C enter DTAP/TDAP/TD VACCINES (1 - Tdap)] Future Scheduled 1964-01-03 DTAP/TDAP/TD [facility]ACCINES [facility] 00:00:00 (1 - Tdap) [code = Medical C enter DTAP/TDAP/TD VACCINES (1 - Tdap)] Future Scheduled 1964-01-03 DTAP/TDAP/TD [facility]ACCINES [facility] 00:00:00 (1 - Tdap) [code = Medical C enter DTAP/TDAP/TD VACCINES (1 - Tdap)] Future Scheduled 1964-01-03 DTAP/TDAP/TD [facility]ACCINES [facility] 00:00:00 (1 - Tdap) [code = Medical C enter DTAP/TDAP/TD VACCINES (1 - Tdap)] Future Scheduled 1963 HEPATITIS C [facility]CRE[facility]ING [facility] 00:00:00 [code = HEPATITIS C Medical Center SCREENING] Future Scheduled 1963 HEPATITIS C [facility]CRE[facility]ING [facility]:00:00 [code = HEPATITIS C Medical Center SCREENING] Future Scheduled 1963 HEPATITIS C [facility]CRE[facility] 00:00:00 [code = HEPATITIS C Medical Center SCREENING] Future Scheduled 1963 HEPATITIS C [facility]CRE[facility] 00:00:00 [code = HEPATITIS C Medical Center SCREENING] Future Scheduled 1963 HEPATITIS C [facility]CRE[facility]:00:00 [code = HEPATITIS C Medical Center SCREENING] Future Scheduled 1951 PNEUMOCOCCAL 65+ YRS [facility] 00:00:00 (1 - PCV) [code = Medical Ce nter PNEUMOCOCCAL 65+ YRS (1 - PCV)] Future Scheduled 1951 PNEUMOCOCCAL 65+ YRS [facility] 00:00:00 (1 - PCV) [code = Medical Ce nter PNEUMOCOCCAL 65+ YRS (1 - PCV)] Future Scheduled 1951 PNEUMOCOCCAL 65+ YRS [facility] 00:00:00 (1 - PCV) [code = Medical Ce nter PNEUMOCOCCAL 65+ YRS (1 - PCV)] Future Scheduled 1951 PNEUMOCOCCAL 65+ YRS [facility] 00:00:00 (1 - PCV) [code = Medical Ce nter PNEUMOCOCCAL 65+ YRS (1 - PCV)] Future Scheduled 1951 PNEUMOCOCCAL 65+ YRS [facility] 00:00:00 (1 - PCV) [code = Medical Ce nter PNEUMOCOCCAL 65+ YRS (1 - PCV)] Future Scheduled 1945 COVID-19 VACCINE (#1) [facility]:00 [code = COVID-[address] VACCINE (#1)] Future Scheduled 1945 COVID-19 VACCINE (#1) [facility] 00:00:00 [code = COVID-[address] VACCINE (#1)] Future Scheduled 1945 COVID-19 VACCINE (#1) [facility] 00:00:00 [code = COVID-[address] VACCINE (#1)] Future Scheduled 1945 COVID-19 VACCINE (#1) [facility] 00:00:00 [code = COVID-[address] VACCINE (#1)] Future Scheduled 1945 COVID-19 VACCINE (#1) [facility] 00:00:00 [code = COVID-[address] VACCINE (#1)] Encounters Start End Encounter Admission Attending Care Care Encounter Source Date/Time Date/Time Type Type Clinicians Facility Department ID 2021-12-12 2021-12-25 Inpatient ER HANS CHRISTINA [facility] Neurology [id number] [facility] 23:47:00 13:54:00 2021-12-12 2021-12-25 [facility] [id number] 23:47[facility]00 13:54:00 Encounter St[facility] 2021-12-12 2021-12-25 [facility] [id number] 23:47:00 13:54:00 Encounter Stas [facility] 2021-12-20 2021-12-20 Outpatient EL SLE [facility] [id number] [facility] 00:00:00 00:00:00 2021-12-19 2021-12-19 Outpatient EL [facility] [id number] [facility] 16:41:35 16:41:35 2021-12-19 2021-12-19 Outpatient EL [facility] [id number] [facility] 14:21:41 14:21:41 2021-12-17 2021-12-17 Outpatient EL [facility] [id number] [facility] 16:25:57 16:25:57 2021-12-16 2021-12-16 Outpatient EL [facility] SLE [id number] [facility] 00:00:00 00:00:00 2021-12-13 2021-12-13 Outpatient [facility] [id number] [facility] 00:00:00 23:59:00 [facility] 2021-12-13 2021-12-13 Orders [facility] [id number] 00:00:00 00:00:00 Only [facility] 2021-12-13 2021-12-13 Travel [facility] [id number] [facility] 00:[facility] 00:00:00 [facility] 2021-12-13 2021-12-13 Orders [facility] [id number] 00:00:00 00:00:00 Only [facility] 2021-12-13 2021-12-13 Travel [facility] [id number] [facility] 00:[facility]00 00:00:00 [facility] 2021-10-01 2021-10-01 Nurse Therapy, Adc Covid Infusion [facility] [id number] [facility] 15:00:00 16:00:00 Visit Adriano Lambert [id number] [facility] [id number] [id number] [place] [id number] Branch 2021-10-01 2021-10-01 Outpatient Patrick LAM[facility]ERT [facility] [id number] Univers 15:00:00 15:00:00 ADRIANO betancourt [facility] 2021-09-30 2021-09-30 Laboratory Only, Ang Db Test [facility] 1.2.8 [id number] Univers 10:15:00 10:30:00 Only Bernadine Starks [facility] [id number] serafin loya MEARS [id number] [place]?BLEA [id number] [address] MEDICAL OFFICE BUILDING 2021-09-30 2021-09-30 Outpatient Patrick [facility] [id number] Univers 10:15:00 10:15:00 [facility] 2021-09-30 2021-09-30 Telephone SANTINO Hirsch [id number] Univers 00:00:00 00:00:00 Chessica T LUKE [id number] ity of HOSPITAL [id number] [place] as [id number] [facility] 019 Branch 2021-09-30 2021-09-30 Orders Doctor SANTINO [id number] Univers 00:00:00 00:00:00 Only Unassigned, LUKE [id number] ity of [place] [facility] [id number] Wesly as [phone] [facility] 009 Branch 2021-09-30 2021-09-30 Letter Doctor SANTINO [id number] Univers 00:00:00 00:00:00 (Out) Unassigned, LUKE [id number] ity of [place] [facility] [id number] Wesly as [phone] [facility] 044 Branch 2016-08-21 2016-08-21 Outpatient [facility] [id number] [facility] 05:15:00 23:59:00 Reinaldo e Results Test Description Test Time Test Comments Results Result Comments Source POC-Glucose meter 2021-12-25 12:43:30 Test Item Value Reference Range Interpretation Comme nts POC-Glucose Meter (test code = 156 mg/dL 70-110 H : TESTED AT [place] [id number]) [facility], [facility] 30: Senior Software Engineer Analytics/Techni michael ID = [id number] for SABIHA CARSON Lab Interpretation (test code = Abnormal 02913-6) [facility] [id number] 12:43:30 Test Item Value Reference Range Interpretation Comments POC-Glucose Meter (test 156 mg/dL 70-110 H : TE STED AT [facility] code = 1538) [address] [place] [address], [facility] 30: Senior Software Engineer Analytics/Techni michael ID = [id number] for SABIHA CARSON Lab Interpretation (test Abnormal code = 62641-8) [facility] [id number] 12:43:30 Test Item Value Reference Range Interpretation Comments POC-Glucose Meter (test 156 mg/dL 70-110 H : TE STED AT [facility] code = 1538) [address] [place] [address], [facility] 30: Senior Software Engineer Analytics/Techni michael ID = [id number] for SABIHA CARSON Lab Interpretation (test Abnormal code = 83645-5) [facility] [id number] 12:43:30 Test Item Value Reference Range Interpretation Comments POC-Glucose Meter (test 156 mg/dL 70-110 H : [facility] [facility] code = 1538) [address] [facility], 770 30: Senior Software Engineer Analytics/Techni michael ID = [id number] for SABIHA CARSON Lab Interpretation (test Abnormal code = 30201-7) [facility]-Glucose [id number] 12:43:30 Test Item Value Reference Range Interpretation Comments POC-Glucose Meter (test 156 mg/dL 70-110 H : TE STED AT [facility] code = 1538) [address] [facility], 770 30: Senior Software Engineer Analytics/Techni michael ID = [id number] for SABIHA CARSON Lab Interpretation (test Abnormal code = 57226-5) [facility]-GLUCOSE [id number] 12:43:30 Test Item Value Reference Range Interpretation Comments POC-GLUCOSE METER 156 mg/dL 70-110 H : TESTED A T [facility] 6720 (BEAKER) (test code = [facility], 1538) [address]145: Senior Software Engineer Analytics/Techni michael ID = [id number] for SABIHA ALFARO BASIC METABOLIC [id number] 09:02:10 Test Item Value Reference Range Interpretation Comments SODIUM (BEAKER) 130 meq/L 136-145 L (test code = 381) POTASSIUM 4.4 meq/L 3.5-5.1 (BEAKER) (test code = 379) CHLORIDE (BEAKER) 99 meq/L 98-107 (test code = 382) CO2 (BEAKER) 24 meq/L 22-29 (test code = 355) BLOOD UREA 24 mg/dL 7-21 H NITROGEN (BEAKER) (test code = 354) CREATININE 0.65 mg/dL 0.57-1.25 (BEAKER) (test code = 358) GLUCOSE RANDOM 108 mg/dL 70-105 H (BEAKER) (test code = 652) CALCIUM (BEAKER) 8.9 mg/dL 8.4-10.2 (test code = 697) EGFR (BEAKER) 97 Interpretatio n of eGFR (test code = mL/min/1.73 values Stage De scription 1092) sq m Result G1 Alondra l or high >=90 G2 Mildly decreased 60-89 G3a Mildl y to moderately 45-5 9 G3b Moderately to s everely 30-44 G4 Severl y decreased 15-29 G5 Kidney failure <15Reported eGF R is based on the CKD-EPI 2020 equation that d oes not use a race coefficientEsti mated GFR is not as accur ate as Creatinine Annemarie roney in predicting glom erular filtration rate . Estimated GFR is not appl icable for dialysis patien ts Senior Software Engineer Analytics ID - RANDY [id number] 09:02:10 Test Item Value Reference Range Interpretation Comments MAGNESIUM (BEAKER) (test code = 2.0 mg/dL 1.6-2.6 627) Senior Software Engineer Analytics ID - RANDY MPOCT-GLUCOSE [id number] 08:48:34 Test Item Value Reference Range Interpretation Comments POC-GLUCOSE METER 104 mg/dL 70-110 : TESTED A T [facility] 6720 (BEAKER) (test code = SOTO Nguyen [facility], 1538) 133[address]: Senior Software Engineer Analytics/Techni michael ID = [id number] for SABIHA ALFARO CBC (HEMOGRAM ONLY)2021-12-25 05:05:05 Test Item Value Reference Range Interpretation Comments WHITE BLOOD CELL COUNT (BEAKER) 5.1 K/ L 3.5-10.5 (test code = 775) RED BLOOD CELL COUNT (BEAKER) 4.20 M/ L 4.63-6.08 L (test code = 761) HEMOGLOBIN (BEAKER) (test code = 13.1 GM/DL 13.7-17.5 L 410) HEMATOCRIT (BEAKER) (test code = 36.9 % 40.1-51.0 L 411) MEAN CORPUSCULAR VOLUME (BEAKER) 87.9 fL 79.0-92.2 (test code = 753) MEAN CORPUSCULAR HEMOGLOBIN 31.2 pg 25.7-32.2 (BEAKER) (test code = 751) MEAN CORPUSCULAR HEMOGLOBIN CONC 35.5 GM/DL 32.3-36.5 (BEAKER) (test code = 752) RED CELL DISTRIBUTION WIDTH 12.6 % 11.6-14.4 (BEAKER) (test code = 412) PLATELET COUNT (BEAKER) (test 121 K/CU MM 150-450 L code = 756) MEAN PLATELET VOLUME (BEAKER) 11.6 fL 9.4-12.4 (test code = 754) NUCLEATED RED BLOOD CELLS 0 /100 WBC 0-0 (BEAKER) (test code = 413) POCT-GLUCOSE [id number] 22:20:49 Test Item Value Reference Range Interpretation Comments POC-GLUCOSE METER 130 mg/dL 70-110 H : TESTED A T [facility] 6720 (BEAKER) (test code = [facility], 1538) 7[address]: Senior Software Engineer Analytics/Techni michael ID = [id number] for Lavonne doan Bridgette POCT-GLUCOSE [id number] 17:21:07 Test Item Value Reference Range Interpretation Comments POC-GLUCOSE METER 154 mg/dL 70-110 H : TESTED A T [facility] 6720 (BEAKER) (test code = [facility], 1538) 69128: Senior Software Engineer Analytics/Techni michael ID = [id number] for Wi lliams (contract), Jama helle POCT-GLUCOSE [id number] 12:32:22 Test Item Value Reference Range Interpretation Comments POC-GLUCOSE METER 231 mg/dL 70-110 H : TESTED A T [facility] 6720 (BEAKER) (test code = [facility], 1538) 22906: Senior Software Engineer Analytics/Techni michael ID = [id number] for Wi lliams (contract), Jama helle OSMOLALITY, [id number] 11:07:37 Test Item Value Reference Range Interpretation Comments OSMOLALITY, SERUM (BEAKER) (test 273 mOsm/kg 275-295 L code = 615) Osmolality, [id number] 11:06:16 Test Item Value Reference Range Interpretation Comments Osmolality, Ur (test code 763 See_Comment [ Automated message] = 8525-5) The system [employer] generated this result transmitted ref erence range: 50-1,200 mOsm/kg mOsm/kg . The reference range was not used to int erpret this result as normal/abnormal . Lab Interpretation (test Normal code = 91764-3) [facility] [id number] 11:06:16 Test Item Value Reference Range Interpretation Comments Osmolality, Ur (test code 763 See_Comment [ Automated message] = 2695-5) The system [employer] generated this result transmitted ref erence range: 50-1,200 mOsm/kg mOsm/kg . The reference range was not used to int erpret this result as normal/abnormal . Lab Interpretation (test Normal code = 36259-8) [facility], [id number] 11:06:16 Test Item Value Reference Range Interpretation Comments Osmolality, Ur (test code 763 See_Comment [ Automated message] = 2695-5) The system [employer] generated this result transmitted ref erence range: 50-1,200 mOsm/kg mOsm/kg . The reference range was not used to int erpret this result as normal/abnormal . Lab Interpretation (test Normal code = 69640-8) [facility], [id number] 11:06:16 Test Item Value Reference Range Interpretation Comments Osmolality, Ur (test code 763 See_Comment [ Automated message] = 2695-5) The system [employer] generated this result transmitted ref erence range: 50-1,200 mOsm/kg mOsm/kg . The reference range was not used to int erpret this result as normal/abnormal . Lab Interpretation (test Normal code = 29812-4) [facility], [id number] 11:06:16 Test Item Value Reference Range Interpretation Comments Osmolality, Ur (test code 763 See_Comment [ Automated message] = 2695-5) The system [employer] generated this result transmitted ref erence range: 50-1,200 mOsm/kg mOsm/kg . The reference range was not used to int erpret this result as normal/abnormal . Lab Interpretation (test Normal code = 65592-0) [facility], [id number] 11:06:16 Test Item Value Reference Range Interpretation Comments OSMOLALITY URINE 763 mOsm/kg See_Comment [Automated message] (BEAKER) (test code = The sy stem which 614) generated this result transmitted ref erence range: 50-1,200 mOsm/kg. The reference range was not used to int erpret this result as normal/abnormal . Sodium, random [id number] 10:57:14 Test Item Value Reference Range Interpretation Comments Sodium Urine (test 134 meq/L code = 2955-3) JUSTIN (test code = Reference Range: No JUSTIN) NormalsOperator ID - [facility] [id number] 10:57:14 Test Item Value Reference Range Interpretation Comments Sodium Urine (test 134 meq/L code = 2955-3) JUSTIN (test code = Reference Range: No JUSTIN) NormalsOperator ID - [facility]ASHIR [facility] [id number] 10:57:14 Test Item Value Reference Range Interpretation Comments Sodium Urine (test 134 meq/L code = 2955-3) JUSTIN (test code = Reference Range: No JUSTIN) NormalsOperator ID - [facility]ASHIR [facility] [id number] 10:57:14 Test Item Value Reference Range Interpretation Comments Sodium Urine (test 134 meq/L code = 2955-3) JUSTIN (test code = Reference Range: No JUSTIN) NormalsOperator ID - [facility]ASHIR [facility] [id number] 10:57:14 Test Item Value Reference Range Interpretation Comments Sodium Urine (test 134 meq/L code = 2955-3) JUSTIN (test code = Reference Range: No JUSTIN) NormalsOperator ID - BASHIR [facility], RANDOM [id number] 10:57:14 Test Item Value Reference Range Interpretation Comments SODIUM URINE (BEAKER) (test code = 134 meq/L 243) Reference Range: No NormalsOperator ID - BASHIR BUrinalysis w/Microscopic 2021-12-24 10:56:13 Test Item Value Reference Range Interpretation Comments Color, UA (test Light Yellow code = 5778-6) Clarity, UA (test Clear code = 5767-9) Specific [place], 1.023 1.001-1.035 UA (test code = 5811-5) pH, UA (test code 6.0 5.0-8.0 = 5803-2) Protein, UA (test Negative Negative code = 87850-1) Glucose, UA (test Negative Negative code = 365) Ketones, UA (test Negative Negative code = 2514-8) Bilirubin, UA Negative Negative (test code = 58569-7) Blood, UA (test Negative Negative code = 88076-9) Nitrite, UA (test Negative Negative code = 5802-4) Leukocytes, UA Negative Negative (test code = 5799-2) Urobilinogen, UA 0.2 mg/dL 0.2-1.0 (test code = 30825-3) RBC, UA (test 1 See_Comment [Automated me ssage] code = 40154-8) The system w [facility] generated this result transmit kristopher reference range : /HPF. The refer ence range was not u sed to interpret th is result as normal/abnormal . WBC, UA (test 1 See_Comment [Automated me ssage] code = 5821-4) The system [facility] generated this result transmit kristopher reference range : /HPF. The refer ence range was not u sed to interpret th is result as normal/abnormal . Bacteria, UA None Seen (test code = 95901-6) Mucus (test code Rare = 8247-9) Crystals, Urine None Seen (test code = 93294-0) Specimen Source (test code = 2795) JUSTIN (test code = Senior Software Engineer Analytics ID - JUSTIN) [auto]Senior Software Engineer Analytics ID - tech [facility] w/Jqwnncukxfq5078-72-85 10:56:13 Test Item Value Reference Range Interpretation Comments Color, UA (test Light Yellow code = 5778-6) Clarity, UA (test Clear code = 5767-9) Specific [place], 1.023 1.001-1.035 UA (test code = 5811-5) pH, UA (test code 6.0 5.0-8.0 = 5803-2) Protein, UA (test Negative Negative code = 99226-4) Glucose, UA (test Negative Negative code = 365) Ketones, UA (test Negative Negative code = 2514-8) Bilirubin, UA Negative Negative (test code = 61626-7) Blood, UA (test Negative Negative code = 29256-9) Nitrite, UA (test Negative Negative code = 5802-4) Leukocytes, UA Negative Negative (test code = 5799-2) Urobilinogen, UA 0.2 mg/dL 0.2-1.0 (test code = 55748-0) RBC, UA (test 1 See_Comment [Automated me ssage] code = 13295-4) The system [employer] generated this result transmit kristopher reference range : /HPF. The refer ence range was not u sed to interpret th is result as normal/abnormal . WBC, UA (test 1 See_Comment [Automated me ssage] code = 5821-4) The system [employer] generated this result transmit kristopher reference range : /HPF. The refer ence range was not u sed to interpret th is result as normal/abnormal . Bacteria, UA None Seen (test code = 46828-6) Mucus (test code Rare = 8247-9) Crystals, Urine None Seen (test code = 74235-4) Specimen Source (test code = 2795) JUSTIN (test code = Senior Software Engineer Analytics ID - JUSTIN) [auto]Senior Software Engineer Analytics ID - tech [facility] w/Gnecprwmbuf7780-63-26 10:56:13 Test Item Value Reference Range Interpretation Comments Color, UA (test Light Yellow code = 5778-6) Clarity, UA (test Clear code = 5767-9) Specific [place], 1.023 1.001-1.035 UA (test code = 5811-5) pH, UA (test code 6.0 5.0-8.0 = 5803-2) Protein, UA (test Negative Negative code = 96440-4) Glucose, UA (test Negative Negative code = 365) Ketones, UA (test Negative Negative code = 2514-8) Bilirubin, UA Negative Negative (test code = 18623-3) Blood, UA (test Negative Negative code = 90780-7) Nitrite, UA (test Negative Negative code = 5802-4) Leukocytes, UA Negative Negative (test code = 5799-2) Urobilinogen, UA 0.2 mg/dL 0.2-1.0 (test code = 10928-7) RBC, UA (test 1 See_Comment [Automated me ssage] code = 02638-6) The system [employer] generated this result transmit kristopher reference range : /HPF. The refer ence range was not u sed to interpret th is result as normal/abnormal . WBC, UA (test 1 See_Comment [Automated me ssage] code = 5821-4) The system [employer] generated this result transmit kristopher reference range : /HPF. The refer ence range was not u sed to interpret th is result as normal/abnormal . Bacteria, UA None Seen (test code = 29982-7) Mucus (test code Rare = 8247-9) Crystals, Urine None Seen (test code = 76235-2) Specimen Source (test code = 2795) UJSTIN (test code = Senior Software Engineer Analytics ID - JUSTIN) [auto]Senior Software Engineer Analytics ID - tech [facility] w/Btgykhodugk2183-09-77 10:56:13 Test Item Value Reference Range Interpretation Comments Color, UA (test Light Yellow code = 5778-6) Clarity, UA (test Clear code = 5767-9) Specific [place], 1.023 1.001-1.035 UA (test code = 5811-5) pH, UA (test code 6.0 5.0-8.0 = 5803-2) Protein, UA (test Negative Negative code = 08473-2) Glucose, UA (test Negative Negative code = 365) Ketones, UA (test Negative Negative code = 2514-8) Bilirubin, UA Negative Negative (test code = 15708-4) Blood, UA (test Negative Negative code = 85865-0) Nitrite, UA (test Negative Negative code = 5802-4) Leukocytes, UA Negative Negative (test code = 5799-2) Urobilinogen, UA 0.2 mg/dL 0.2-1.0 (test code = 46297-6) RBC, UA (test 1 See_Comment [Automated me ssage] code = 31838-5) The system [facility] generated this result transmit kristopher reference range : /HPF. The refer ence range was not u sed to interpret th is result as normal/abnormal . WBC, UA (test 1 See_Comment [Automated me ssage] code = 5821-4) The system [facility] generated this result transmit kristopher reference range : /HPF. The refer ence range was not u sed to interpret th is result as normal/abnormal . Bacteria, UA None Seen (test code = 89322-2) Mucus (test code Rare = 8247-9) Crystals, Urine None Seen (test code = 18441-2) Specimen Source (test code = 2795) JUSTIN (test code = Senior Software Engineer Analytics ID - JUSTIN) [auto]Senior Software Engineer Analytics ID - tech [facility] w/Ihxnisydgvr0076-90-47 10:56:13 Test Item Value Reference Range Interpretation Comments Color, UA (test Light Yellow code = 5778-6) Clarity, UA (test Clear code = 5767-9) Specific [place], 1.023 1.001-1.035 UA (test code = 5811-5) pH, UA (test code 6.0 5.0-8.0 = 5803-2) Protein, UA (test Negative Negative code = 61338-3) Glucose, UA (test Negative Negative code = 365) Ketones, UA (test Negative Negative code = 2514-8) Bilirubin, UA Negative Negative (test code = 69924-2) Blood, UA (test Negative Negative code = 60488-5) Nitrite, UA (test Negative Negative code = 5802-4) Leukocytes, UA Negative Negative (test code = 5799-2) Urobilinogen, UA 0.2 mg/dL 0.2-1.0 (test code = 40284-9) RBC, UA (test 1 See_Comment [Automated me ssage] code = 19793-4) The system [facility] generated this result transmit kristopher reference range : /HPF. The refer ence range was not u sed to interpret th is result as normal/abnormal . WBC, UA (test 1 See_Comment [Automated me ssage] code = 5821-4) The system [facility] generated this result transmit kristopher reference range : /HPF. The refer ence range was not u sed to interpret th is result as normal/abnormal . Bacteria, UA None Seen (test code = 14318-1) Mucus (test code Rare = 8247-9) Crystals, Urine None Seen (test code = 21683-9) Specimen Source (test code = 2795) JUSTIN (test code = Senior Software Engineer Analytics ID - JUSTIN) [auto]Senior Software Engineer Analytics ID - tech [facility]/ [id number] 10:56:13 Test Item Value Reference Range Interpretation Comments COLOR (BEAKER) (test code = 470) Light Yellow CLARITY (BEAKER) (test code = Clear 469) SPECIFIC GRAVITY UA (BEAKER) 1.023 1.001-1.035 (test code = 468) PH UA (BEAKER) (test code = 467) 6.0 5.0-8.0 PROTEIN UA (BEAKER) (test code = Negative Negative 464) GLUCOSE UA (BEAKER) (test code = Negative Negative 365) KETONES UA (BEAKER) (test code = Negative Negative 371) BILIRUBIN UA (BEAKER) (test code Negative Negative = 462) BLOOD UA (BEAKER) (test code = Negative Negative 461) NITRITE UA (BEAKER) (test code = Negative Negative 465) LEUKOCYTE ESTERASE UA (BEAKER) Negative Negative (test code = 466) UROBILINOGEN UA (BEAKER) (test 0.2 mg/dL 0.2-1.0 code = 463) RBC UA (BEAKER) (test code = 1 /HPF 519) WBC UA (BEAKER) (test code = 1 /HPF 520) BACTERIA (BEAKER) (test code = None Seen 517) MUCUS (BEAKER) (test code = Rare 1574) CRYSTALS, URINE (BEAKER) (test None Seen code = 1521) SOURCE(BEAKER) (test code = 2795) Senior Software Engineer Analytics ID - [auto]Senior Software Engineer Analytics ID - [id number] 09:19:20 Test Item Value Reference Range Interpretation Comments SODIUM (BEAKER) (test code = 381) 128 meq/L 136-145 L Senior Software Engineer Analytics ID - CHARLETTE LPOCT-GLUCOSE [id number] 08:18:40 Test Item Value Reference Range Interpretation Comments POC-GLUCOSE METER 115 mg/dL 70-110 H : TESTED A T [facility] 6720 (BEAKER) (test code = SOTO Nguyen [facility], 1538) [address]: Senior Software Engineer Analytics/Techni michael ID = [id number] for Beata reidvirgilio (contract), [facility] cuca [id number] 05:15:09 Test Item Value Reference Range Interpretation Comments MAGNESIUM (BEAKER) (test code = 2.0 mg/dL 1.6-2.6 627) Senior Software Engineer Analytics ID - ADMINBASIC METABOLIC [id number] 05:15:08 Test Item Value Reference Range Interpretation Comments SODIUM (BEAKER) 127 meq/L 136-145 L (test code = 381) POTASSIUM 4.5 meq/L 3.5-5.1 (BEAKER) (test code = 379) CHLORIDE (BEAKER) 99 meq/L 98-107 (test code = 382) CO2 (BEAKER) 22 meq/L 22-29 (test code = 355) BLOOD UREA 24 mg/dL 7-21 H NITROGEN (BEAKER) (test code = 354) CREATININE 0.68 mg/dL 0.57-1.25 (BEAKER) (test code = 358) GLUCOSE RANDOM 133 mg/dL 70-105 H (BEAKER) (test code = 652) CALCIUM (BEAKER) 8.7 mg/dL 8.4-10.2 (test code = 697) EGFR (BEAKER) 96 Interpretatio n of eGFR (test code = mL/min/1.73 values Stage De scription 1092) sq m Result G1 Alondra l or high >=90 G2 Mildly decreased 60-89 G3a Mildl y to moderately 45-5 9 G3b Moderately to s everely 30-44 G4 Severl y decreased 15-29 G5 Kidney failure <15Reported eGF R is based on the CKD-EPI 2020 equation that d oes not use a race coefficientEsti mated GFR is not as accur ate as Creatinine Annemarie roney in predicting glom erular filtration rate . Estimated GFR is not appl icable for dialysis patien ts Senior Software Engineer Analytics ID - ADMINCBC (HEMOGRAM ONLY)2021-12-24 04:44:50 Test Item Value Reference Range Interpretation Comments WHITE BLOOD CELL COUNT (BEAKER) 5.1 K/ L 3.5-10.5 (test code = 775) RED BLOOD CELL COUNT (BEAKER) 4.29 M/ L 4.63-6.08 L (test code = 761) HEMOGLOBIN (BEAKER) (test code = 13.5 GM/DL 13.7-17.5 L 410) HEMATOCRIT (BEAKER) (test code = 37.4 % 40.1-51.0 L 411) MEAN CORPUSCULAR VOLUME (BEAKER) 87.2 fL 79.0-92.2 (test code = 753) MEAN CORPUSCULAR HEMOGLOBIN 31.5 pg 25.7-32.2 (BEAKER) (test code = 751) MEAN CORPUSCULAR HEMOGLOBIN CONC 36.1 GM/DL 32.3-36.5 (BEAKER) (test code = 752) RED CELL DISTRIBUTION WIDTH 12.5 % 11.6-14.4 (BEAKER) (test code = 412) PLATELET COUNT (BEAKER) (test 138 K/CU MM 150-450 L code = 756) MEAN PLATELET VOLUME (BEAKER) 11.7 fL 9.4-12.4 (test code = 754) NUCLEATED RED BLOOD CELLS 0 /100 WBC 0-0 (BEAKER) (test code = 413) POCT-GLUCOSE [id number] 16:39:35 Test Item Value Reference Range Interpretation Comments POC-GLUCOSE METER 173 mg/dL 70-110 H : TESTED A T [facility] 6720 (BEAKER) (test code = [facility], 1538) [address]25[address]: Senior Software Engineer Analytics/Techni michael ID = [id number] for Wi lliams (contract), [place] helle POCT-GLUCOSE [id number] 12:16:31 Test Item Value Reference Range Interpretation Comments POC-GLUCOSE METER 107 mg/dL 70-110 : TESTED A T [facility] 6720 (BEAKER) (test code = [facility], 1538) 85382: Senior Software Engineer Analytics/Techni michael ID = [id number] for Wi lliams (contract), Jama helle POCT-GLUCOSE [id number] 08:58:25 Test Item Value Reference Range Interpretation Comments POC-GLUCOSE METER 118 mg/dL 70-110 H : TESTED A T [facility] 6720 (BEAKER) (test code = [facility], 1538) 55803: Senior Software Engineer Analytics/Techni michael ID = [id number] for Wi lliams (contract), Jama helle BASIC METABOLIC [id number] 05:11:51 Test Item Value Reference Range Interpretation Comments SODIUM (BEAKER) 130 meq/L 136-145 L (test code = 381) POTASSIUM 4.4 meq/L 3.5-5.1 (BEAKER) (test code = 379) CHLORIDE (BEAKER) 102 meq/L 98-107 (test code = 382) CO2 (BEAKER) 22 meq/L 22-29 (test code = 355) BLOOD UREA 22 mg/dL 7-21 H NITROGEN (BEAKER) (test code = 354) CREATININE 0.65 mg/dL 0.57-1.25 (BEAKER) (test code = 358) GLUCOSE RANDOM 119 mg/dL 70-105 H (BEAKER) (test code = 652) CALCIUM (BEAKER) 8.3 mg/dL 8.4-10.2 L (test code = 697) EGFR (BEAKER) 97 Interpretatio n of eGFR (test code = mL/min/1.73 values Stage De scription 1092) sq m Result G1 Alondra l or high >=90 G2 Mildly decreased 60-89 G3a Mildl y to moderately 45-5 9 G3b Moderately to s everely 30-44 G4 Severl y decreased 15-29 G5 Kidney failure <15Reported eGF R is based on the CKD-EPI 2020 equation that d oes not use a race coefficientEsti mated GFR is not as accur ate as Creatinine Annemarie roney in predicting glom erular filtration rate . Estimated GFR is not appl icable for dialysis patien ts Senior Software Engineer Analytics ID - CHARLETTE [id number] 05:11:51 Test Item Value Reference Range Interpretation Comments MAGNESIUM (BEAKER) (test code = 2.0 mg/dL 1.6-2.6 627) Senior Software Engineer Analytics ID - CHARLETTE LCBC (HEMOGRAM ONLY)2021-12-23 04:00:37 Test Item Value Reference Range Interpretation Comments WHITE BLOOD CELL COUNT (BEAKER) 6.3 K/ L 3.5-10.5 (test code = 775) RED BLOOD CELL COUNT (BEAKER) 4.07 M/ L 4.63-6.08 L (test code = 761) HEMOGLOBIN (BEAKER) (test code = 12.6 GM/DL 13.7-17.5 L 410) HEMATOCRIT (BEAKER) (test code = 35.9 % 40.1-51.0 L 411) MEAN CORPUSCULAR VOLUME (BEAKER) 88.2 fL 79.0-92.2 (test code = 753) MEAN CORPUSCULAR HEMOGLOBIN 31.0 pg 25.7-32.2 (BEAKER) (test code = 751) MEAN CORPUSCULAR HEMOGLOBIN CONC 35.1 GM/DL 32.3-36.5 (BEAKER) (test code = 752) RED CELL DISTRIBUTION WIDTH 12.4 % 11.6-14.4 (BEAKER) (test code = 412) PLATELET COUNT (BEAKER) (test 141 K/CU MM 150-450 L code = 756) MEAN PLATELET VOLUME (BEAKER) 11.5 fL 9.4-12.4 (test code = 754) NUCLEATED RED BLOOD CELLS 0 /100 WBC 0-0 (BEAKER) (test code = 413) POCT-GLUCOSE [id number] 22:33:45 Test Item Value Reference Range Interpretation Comments POC-GLUCOSE METER 157 mg/dL 70-110 H : TESTED A T [facility] 6720 (BEAKER) (test code = [facility], 153) 50868: Senior Software Engineer Analytics/Techni michael ID = [id number] for Bridgette Bobby POCT-GLUCOSE [id number] 17:42:59 Test Item Value Reference Range Interpretation Comments POC-GLUCOSE METER 140 mg/dL 70-110 H : TESTED A T [facility] 6720 (BEAKER) (test code = [facility], 1538) 08019: Senior Software Engineer Analytics/Techni michael ID = [id number] for Love-Kristian, [place] POCT-GLUCOSE [id number] 12:48:27 Test Item Value Reference Range Interpretation Comments POC-GLUCOSE METER 114 mg/dL 70-110 H : TESTED A T [facility] 6720 (BEAKER) (test code = [facility], [facility]8) 14041: Senior Software Engineer Analytics/Techni michael ID = [id number] for Love-Kristian, [place] POCT-GLUCOSE [id number] 08:38:35 Test Item Value Reference Range Interpretation Comments POC-GLUCOSE METER 111 mg/dL 70-110 H : TESTED A T [facility] 6720 (BEAKER) (test code = [facility], [facility]8) 43830: Senior Software Engineer Analytics/Techni michael ID = [id number] for Love-Kristian, [place] ia BASIC METABOLIC [id number] 07:20:19 Test Item Value Reference Range Interpretation Comments SODIUM (BEAKER) 131 meq/L 136-145 L (test code = 381) POTASSIUM 4.3 meq/L 3.5-5.1 (BEAKER) (test code = 379) CHLORIDE (BEAKER) 102 meq/L 98-107 (test code = 382) CO2 (BEAKER) 22 meq/L 22-29 (test code = 355) BLOOD UREA 20 mg/dL 7-21 NITROGEN (BEAKER) (test code = 354) CREATININE 0.67 mg/dL 0.57-1.25 (BEAKER) (test code = 358) GLUCOSE RANDOM 115 mg/dL 70-105 H (BEAKER) (test code = 652) CALCIUM (BEAKER) 8.5 mg/dL 8.4-10.2 (test code = 697) EGFR (BEAMOR) 96 Interpretatio n of eGFR (test code = mL/min/1.73 values Stage De scription 1092) sq m Result G1 Alondra l or high >=90 G2 Mildly decreased 60-89 G3a Mildl y to moderately 45-5 9 G3b Moderately to s everely 30-44 G4 Severl y decreased 15-29 G5 Kidney failure <15Reported eGF R is based on the CKD-EPI 2020 equation that d oes not use a race coefficientEsti mated GFR is not as accur ate as Creatinine Annemarie roney in predicting glom erular filtration rate . Estimated GFR is not appl icable for dialysis patien ts Senior Software Engineer Analytics ID - CHARLETTE [id number] 07:20:19 Test Item Value Reference Range Interpretation Comments MAGNESIUM (RAMON) (test code = 2.1 mg/dL 1.6-2.6 627) Senior Software Engineer Analytics ID - CHARLETTE LPOCT-GLUCOSE [id number] 21:49:24 Test Item Value Reference Range Interpretation Comments POC-GLUCOSE METER 170 mg/dL 70-110 H : TESTED A T [facility] 6720 ([place]) (test code [facility], = 1538) [address]: Senior Software Engineer Analytics/Techni michael ID = [id number] for Reaves(contra ct)Dayana POCT-GLUCOSE [id number] 16:44:11 Test Item Value Reference Range Interpretation Comments POC-GLUCOSE METER 138 mg/dL 70-110 H : Notified RN/MD: TESTED (Contratan.do) (test code AT [facility] [address] = 1538) [facility], [facility], [facility] 30: Senior Software Engineer Analytics/Techni michael ID = [id number] for Gilb reath (contract), Sha ntika POCT-GLUCOSE [id number] 12:15:18 Test Item Value Reference Range Interpretation Comments POC-GLUCOSE METER 106 mg/dL 70-110 : Notified RN/MD: TESTED (Contratan.do) (test code AT [facility] [address] = 1538) [facility], 770 30: Senior Software Engineer Analytics/Techni michael ID = [id number] for Gilb reath (contract), Sha ntika POCT-GLUCOSE [id number] 08:10:51 Test Item Value Reference Range Interpretation Comments POC-GLUCOSE METER 128 mg/dL 70-110 H : TESTED A T [facility] 6720 (BEAKER) (test code [facility], = 1538) [address]: Senior Software Engineer Analytics/Techni michael ID = [id number] for Gladys wilson (contract), Elbert naqvi [id number] 06:24:42 Test Item Value Reference Range Interpretation Comments MAGNESIUM (BEAKER) 2.1 mg/dL 1.6-2.6 Specimen slightly (test code = 627) hemolyzed Senior Software Engineer Analytics ID - RANDY MBASIC METABOLIC [id number] 06:24:42 Test Item Value Reference Range Interpretation Comments SODIUM (BEAKER) 133 meq/L 136-145 L (test code = 381) POTASSIUM 4.4 meq/L 3.5-5.1 Specimen slight ly (BEAKER) (test hemolyzed code = 379) CHLORIDE (BEAKER) 102 meq/L 98-107 (test code = 382) CO2 (BEAKER) 25 meq/L 22-29 (test code = 355) BLOOD UREA 23 mg/dL 7-21 H NITROGEN (BEAKER) (test code = 354) CREATININE 0.74 mg/dL 0.57-1.25 Specimen slight ly (BEAKER) (test hemolyzed code = 358) GLUCOSE RANDOM 122 mg/dL 70-105 H (BEAKER) (test code = 652) CALCIUM (BEAKER) 8.8 mg/dL 8.4-10.2 (test code = 697) EGFR (BEAKER) 94 Interpretatio n of eGFR (test code = mL/min/1.73 values Stage De scription 1092) sq m Result G1 Alondra l or high >=90 G2 Mildly decreased 60-89 G3a Mildl y to moderately 45-5 9 G3b Moderately to s everely 30-44 G4 Severl y decreased 15-29 G5 Kidne y failure <15Reported eGF R is based on the CKD-EPI 2021 equation that d oes not use a race coefficientEsti mated GFR is not as accur ate as Creatinine Annemarie sim in predicting glom erular filtration rate . Estimated GFR is not appl icable for dialysis patien ts Senior Software Engineer Analytics ID - RANDY MCBC W/PLT COUNT & AUTO [id number] 05:45:25 Test Item Value Reference Range Interpretation Comments WHITE BLOOD CELL COUNT (BEAKER) 7.2 K/ L 3.5-10.5 (test code = 775) RED BLOOD CELL COUNT (BEAKER) 4.57 M/ L 4.63-6.08 L (test code = 761) HEMOGLOBIN (BEAKER) (test code = 14.0 GM/DL 13.7-17.5 410) HEMATOCRIT (BEAKER) (test code = 39.1 % 40.1-51.0 L 411) MEAN CORPUSCULAR VOLUME (BEAKER) 85.6 fL 79.0-92.2 (test code = 753) MEAN CORPUSCULAR HEMOGLOBIN 30.6 pg 25.7-32.2 (BEAKER) (test code = 751) MEAN CORPUSCULAR HEMOGLOBIN CONC 35.8 GM/DL 32.3-36.5 (BEAKER) (test code = 752) RED CELL DISTRIBUTION WIDTH 12.7 % 11.6-14.4 (BEAKER) (test code = 412) PLATELET COUNT (BEAKER) (test 206 K/CU MM 150-450 code = 756) MEAN PLATELET VOLUME (BEAKER) 11.1 fL 9.4-12.4 (test code = 754) NUCLEATED RED BLOOD CELLS 0 /100 WBC 0-0 (BEAKER) (test code = 413) NEUTROPHILS RELATIVE PERCENT 83 % (BEAKER) (test code = 429) LYMPHOCYTES RELATIVE PERCENT 6 % (BEAKER) (test code = 430) MONOCYTES RELATIVE PERCENT 7 % (BEAKER) (test code = 431) EOSINOPHILS RELATIVE PERCENT 0 % (BEAKER) (test code = 432) BASOPHILS RELATIVE PERCENT 0 % (BEAKER) (test code = 437) NEUTROPHILS ABSOLUTE COUNT 5.98 K/ L 1.78-5.38 H (BEAKER) (test code = 670) LYMPHOCYTES ABSOLUTE COUNT 0.41 K/ L 1.32-3.57 L (BEAKER) (test code = 414) MONOCYTES ABSOLUTE COUNT (BEAKER) 0.48 K/ L 0.30-0.82 (test code = 415) EOSINOPHILS ABSOLUTE COUNT 0.00 K/ L 0.04-0.54 L (BEAKER) (test code = 416) BASOPHILS ABSOLUTE COUNT (BEAKER) 0.03 K/ L 0.01-0.08 (test code = 417) IMMATURE GRANULOCYTES-RELATIVE 5 % 0-1 H PERCENT (BEAKER) (test code = 2801) POCT-GLUCOSE [id number] 21:59:06 Test Item Value Reference Range Interpretation Comments POC-GLUCOSE METER 155 mg/dL 70-110 H : TESTED A T [facility] 6720 (BEAKER) (test code = [facility] [place], 1538) [address]: Senior Software Engineer Analytics/Techni mihcael ID = [id number] for LETI THOMAS HEPATITIS B [id number] 18:18:04 Test Item Value Reference Range Interpretation Comments HEPATITIS B CORE TOTAL ANTIBODY Nonreactive Nonreactive (BEAKER) (test code = 497) HEPATITIS B SURFACE ANTIBODY < mIU/mL <8.0 (BEAKER) (test code = 647) HEPATITIS B SURFACE ANTIGEN (2) Nonreactive Nonreactive (BEAKER) (test code = 2585) Senior Software Engineer Analytics ID - BSHEPATIC FUNCTION [id number] 17:53:35 Test Item Value Reference Range Interpretation Comments TOTAL PROTEIN (BEAKER) (test code = 6.7 gm/dL 6.0-8.3 770) ALBUMIN (BEAKER) (test code = 1145) 4.0 g/dL 3.5-5.0 BILIRUBIN TOTAL (BEAKER) (test code 0.5 mg/dL 0.2-1.2 = 377) BILIRUBIN DIRECT (BEAKER) (test 0.2 mg/dL 0.1-0.5 code = 706) ALKALINE PHOSPHATASE (BEAKER) (test 66 U/L 40-150 code = 346) AST (SGOT) (BEAKER) (test code = 24 U/L 5-34 353) ALT (SGPT) (BEAKER) (test code = 52 U/L 6-55 347) Senior Software Engineer Analytics ID - BSPOCT-GLUCOSE [id number] 16:20:25 Test Item Value Reference Range Interpretation Comments POC-GLUCOSE METER 184 mg/dL 70-110 H : TESTED A T [facility] 6720 (BEAKER) (test code = [facility] [place], 1538) [address]: Senior Software Engineer Analytics/Techni michael ID = [id number] for Gagandeep Niñou POCT-GLUCOSE [id number] 13:28:28 Test Item Value Reference Range Interpretation Comments POC-GLUCOSE METER 168 mg/dL 70-110 H : TESTED A T [facility] 6720 (BEAKER) (test code = [place], 1538) [address]: Senior Software Engineer Analytics/Techni michael ID = [id number] for Moni Niño POCT-GLUCOSE [id number] 08:44:12 Test Item Value Reference Range Interpretation Comments POC-GLUCOSE METER 121 mg/dL 70-110 H : TESTED A T [facility] 6720 (BEAKER) (test code = [place], 1538) [address]: Senior Software Engineer Analytics/Techni michael ID = [id number] for Nina Barnes CBC W/PLT COUNT & AUTO [id number] 06:13:12 Test Item Value Reference Range Interpretation Comments WHITE BLOOD CELL COUNT (BEAKER) 8.4 K/ L 3.5-10.5 (test code = 775) RED BLOOD CELL COUNT (BEAKER) 4.61 M/ L 4.63-6.08 L (test code = 761) HEMOGLOBIN (BEAKER) (test code = 14.4 GM/DL 13.7-17.5 410) HEMATOCRIT (BEAKER) (test code = 40.0 % 40.1-51.0 L 411) MEAN CORPUSCULAR VOLUME (BEAKER) 86.8 fL 79.0-92.2 (test code = 753) MEAN CORPUSCULAR HEMOGLOBIN 31.2 pg 25.7-32.2 (BEAKER) (test code = 751) MEAN CORPUSCULAR HEMOGLOBIN CONC 36.0 GM/DL 32.3-36.5 (BEAKER) (test code = 752) RED CELL DISTRIBUTION WIDTH 12.6 % 11.6-14.4 (BEAKER) (test code = 412) PLATELET COUNT (BEAKER) (test 209 K/CU MM 150-450 code = 756) MEAN PLATELET VOLUME (BEAKER) 11.0 fL 9.4-12.4 (test code = 754) NUCLEATED RED BLOOD CELLS 0 /100 WBC 0-0 (BEAKER) (test code = 413) NEUTROPHILS RELATIVE PERCENT 82 % (BEAKER) (test code = 429) LYMPHOCYTES RELATIVE PERCENT 5 % (BEAKER) (test code = 430) MONOCYTES RELATIVE PERCENT 8 % (BEAKER) (test code = 431) EOSINOPHILS RELATIVE PERCENT 0 % (BEAKER) (test code = 432) BASOPHILS RELATIVE PERCENT 0 % (BEAKER) (test code = 437) NEUTROPHILS ABSOLUTE COUNT 6.90 K/ L 1.78-5.38 H (BEAKER) (test code = 670) LYMPHOCYTES ABSOLUTE COUNT 0.45 K/ L 1.32-3.57 L (BEAKER) (test code = 414) MONOCYTES ABSOLUTE COUNT (BEAKER) 0.66 K/ L 0.30-0.82 (test code = 415) EOSINOPHILS ABSOLUTE COUNT 0.00 K/ L 0.04-0.54 L (BEAKER) (test code = 416) BASOPHILS ABSOLUTE COUNT (BEAKER) 0.03 K/ L 0.01-0.08 (test code = 417) IMMATURE GRANULOCYTES-RELATIVE 4 % 0-1 H PERCENT (BEAKER) (test code = 2801) [id number] 06:12:27 Test Item Value Reference Range Interpretation Comments MAGNESIUM (BEAKER) (test code = 2.1 mg/dL 1.6-2.6 627) Senior Software Engineer Analytics ID - GREG WBASIC METABOLIC [id number] 06:12:26 Test Item Value Reference Range Interpretation Comments SODIUM (BEAKER) 133 meq/L 136-145 L (test code = 381) POTASSIUM 4.3 meq/L 3.5-5.1 (BEAKER) (test code = 379) CHLORIDE (BEAKER) 102 meq/L 98-107 (test code = 382) CO2 (BEAKER) 24 meq/L 22-29 (test code = 355) BLOOD UREA 27 mg/dL 7-21 H NITROGEN (BEAKER) (test code = 354) CREATININE 0.73 mg/dL 0.57-1.25 (BEAKER) (test code = 358) GLUCOSE RANDOM 120 mg/dL 70-105 H (BEAKER) (test code = 652) CALCIUM (BEAKER) 9.1 mg/dL 8.4-10.2 (test code = 697) EGFR (BEAKER) 94 Interpretatio n of eGFR (test code = mL/min/1.73 values Stage De scription 1092) sq m Result G1 Alondra l or high >=90 G2 Mildly decreased 60-89 G3a Mildl y to moderately 45-5 9 G3b Moderately to s everely 30-44 G4 Severl y decreased 15-29 G5 Kidney failure <15Reported eGF R is based on the CKD-EPI 2020 equation that d oes not use a race coefficientEsti mated GFR is not as accur ate as Creatinine Annemarie sim in predicting glom erular filtration rate . Estimated GFR is not appl icable for dialysis patien ts Senior Software Engineer Analytics ID - GREG WPOCT-GLUCOSE [id number] 21:47:01 Test Item Value Reference Range Interpretation Comments POC-GLUCOSE METER 171 mg/dL 70-110 H : TESTED A T 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 Mitotic figures are conspicuous, and necrosis present. Immunostains were performed, with appropriate controls, and the tumor is negative for p40, p63, GATA3, CK7, chromogranin, PSA, and PSAP. Rare cells are positive for Ck20. Synaptophysin is focally positive, staining is seen in approximately 20% of the biopsied tissue. 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 Rib, Right.Received in formalin labeled with the patient's name, accession number and "upper chest right rib" is a 1.3 x 0.7 x 0.2 cmaggregate of de la garza-yellow, trabeculated bone fragments, which are submitted in toto in A1 following light decalcification (EDTA).GONZALO Mead, HT (ASCP)Performed.The interpretation of this case included the use of immunohistochemistry or special stains.Control Slides Examined: In-house known positive controls were evaluated along with the test tissue. These control slides run alongside of the patients sample show appropriate staining. Internal positive and negative controls when available are evaluated Immunohistochemistry technical testing was performed at [facility], Pathology Laboratory where it was developed and its performance characteristics were determined. It hasnot been cleared or approved by the U.S. Food and Drug Administration. The FDA has determined that such clearance or approval is not necessary. The test is used for clinical purposes. It should not be regarded as investigational or for research. This laboratory is certified under the Clinical Laboratory Improvement Amendments of 1988 (CLIA-88) as qualified to perform high complexity clinical laboratory testing.[facility], Department of Pathology, [address] [place] [address], [facility], [address] [place] [address], [facility], [facility] of [facility], [address] [place] [address], VBUZ-GLUCOSE [id number] 17:08:25 Test Item Value Reference Range Interpretation Comments POC-GLUCOSE METER 120 mg/dL 70-110 H : TESTED A T [facility] 6720 (Contratan.do) (test code = [facility], 153) [address]: Senior Software Engineer Analytics/Techni michael ID = [id number] for Bill Espinoza POCT-GLUCOSE [id number] 11:36:00 Test Item Value Reference Range Interpretation Comments POC-GLUCOSE METER 258 mg/dL 70-110 H : TESTED A T [facility] 6720 (BEAKER) (test code = [facility], 153) [address]: Senior Software Engineer Analytics/Techni michael ID = [id number] for SABIHA ALFARO BASIC METABOLIC [id number] 08:46:29 Test Item Value Reference Range Interpretation Comments SODIUM (BEAKER) 131 meq/L 136-145 L (test code = 381) POTASSIUM 4.3 meq/L 3.5-5.1 (BEAKER) (test code = 379) CHLORIDE (BEAKER) 99 meq/L 98-107 (test code = 382) CO2 (BEAKER) 22 meq/L 22-29 (test code = 355) BLOOD UREA 25 mg/dL 7-21 H NITROGEN (BEAKER) (test code = 354) CREATININE 0.78 mg/dL 0.57-1.25 (BEAKER) (test code = 358) GLUCOSE RANDOM 121 mg/dL 70-105 H (BEAKER) (test code = 652) CALCIUM (BEAKER) 9.2 mg/dL 8.4-10.2 (test code = 697) EGFR (BEAKER) 93 Interpretatio n of eGFR (test code = mL/min/1.73 values Stage De scription 1092) sq m Result G1 Alondra l or high >=90 G2 Mildly decreased 60-89 G3a Mildl y to moderately 45-5 9 G3b Moderately to s everely 30-44 G4 Severl y decreased 15-29 G5 Kidney failure <15Reported eGF R is based on the CKD-EPI 2020 equation that d oes not use a race coefficientEsti mated GFR is not as accur ate as Creatinine Annemarie sim in predicting glom erular filtration rate . Estimated GFR is not appl icable for dialysis patien ts Senior Software Engineer Analytics ID - CHARLETTE [id number] 08:46:29 Test Item Value Reference Range Interpretation Comments MAGNESIUM (BEAKER) (test code = 2.1 mg/dL 1.6-2.6 627) Senior Software Engineer Analytics ID - LUMAALFIE LCBC W/PLT COUNT & AUTO [id number] 08:45:56 Test Item Value Reference Range Interpretation Comments WHITE BLOOD CELL COUNT (BEAKER) 7.9 K/ L 3.5-10.5 (test code = 775) RED BLOOD CELL COUNT (BEAKER) 4.58 M/ L 4.63-6.08 L (test code = 761) HEMOGLOBIN (BEAKER) (test code = 14.4 GM/DL 13.7-17.5 410) HEMATOCRIT (BEAKER) (test code = 40.1 % 40.1-51.0 411) MEAN CORPUSCULAR VOLUME (BEAKER) 87.6 fL 79.0-92.2 (test code = 753) MEAN CORPUSCULAR HEMOGLOBIN 31.4 pg 25.7-32.2 (BEAKER) (test code = 751) MEAN CORPUSCULAR HEMOGLOBIN CONC 35.9 GM/DL 32.3-36.5 (BEAKER) (test code = 752) RED CELL DISTRIBUTION WIDTH 12.4 % 11.6-14.4 (BEAKER) (test code = 412) PLATELET COUNT (BEAKER) (test 223 K/CU MM 150-450 code = 756) MEAN PLATELET VOLUME (BEAKER) 11.2 fL 9.4-12.4 (test code = 754) NUCLEATED RED BLOOD CELLS 0 /100 WBC 0-0 (BEAKER) (test code = 413) NEUTROPHILS RELATIVE PERCENT 83 % (BEAKER) (test code = 429) LYMPHOCYTES RELATIVE PERCENT 7 % (BEAKER) (test code = 430) MONOCYTES RELATIVE PERCENT 6 % (BEAKER) (test code = 431) EOSINOPHILS RELATIVE PERCENT 0 % (BEAKER) (test code = 432) BASOPHILS RELATIVE PERCENT 1 % (BEAKER) (test code = 437) NEUTROPHILS ABSOLUTE COUNT 6.60 K/ L 1.78-5.38 H (BEAKER) (test code = 670) LYMPHOCYTES ABSOLUTE COUNT 0.56 K/ L 1.32-3.57 L (BEAKER) (test code = 414) MONOCYTES ABSOLUTE COUNT (BEAKER) 0.45 K/ L 0.30-0.82 (test code = 415) EOSINOPHILS ABSOLUTE COUNT 0.00 K/ L 0.04-0.54 L (BEAKER) (test code = 416) BASOPHILS ABSOLUTE COUNT (BEAKER) 0.04 K/ L 0.01-0.08 (test code = 417) IMMATURE GRANULOCYTES-RELATIVE 3 % 0-1 H PERCENT (BEAKER) (test code = 2801) POCT-GLUCOSE [id number] 07:33:08 Test Item Value Reference Range Interpretation Comments POC-GLUCOSE METER 123 mg/dL 70-110 H : TESTED Brent Chiang [facility] 6720 (BEAKER) (test code = [place], 1538) [address]: Senior Software Engineer Analytics/Techni michael ID = [id number] for SABIHA ALFARO POCT-GLUCOSE [id number] 21:30:55 Test Item Value Reference Range Interpretation Comments POC-GLUCOSE METER 173 mg/dL 70-110 H : TESTED A T [facility] 6720 (BEAKER) [facility], 1538) [address]: Senior Software Engineer Analytics/Techni michael ID = [id number] for LETI THOMAS POCT-GLUCOSE [id number] 17:50:44 Test Item Value Reference Range Interpretation Comments POC-GLUCOSE METER 160 mg/dL 70-110 H : TESTED A T [facility] 6720 (BEAKER) (test code [facility], = 1538) [address]: Senior Software Engineer Analytics/Techni michael ID = [id number] for Soye mi, Aded[place]ola POCT-GLUCOSE [id number] 13:13:29 Test Item Value Reference Range Interpretation Comments POC-GLUCOSE METER 122 mg/dL 70-110 H : TESTED A T [facility] 6720 (BEAKER) (test code [facility], = 1538) [address]: Senior Software Engineer Analytics/Techni michael ID = [id number] for Soye mi, Aded[place]ola POCT-GLUCOSE [id number] 09:04:33 Test Item Value Reference Range Interpretation Comments POC-GLUCOSE METER 121 mg/dL 70-110 H : TESTED A T [facility] 6720 (BEAKER) (test code [facility], = 1538) [address]: Senior Software Engineer Analytics/Techni michael ID = [id number] for Soye mi, [place] [id number] 05:49:31 Test Item Value Reference Range Interpretation Comments MAGNESIUM (BEAKER) (test code = 2.1 mg/dL 1.6-2.6 627) Senior Software Engineer Analytics ID - RANDY MBASIC METABOLIC [id number] 05:49:30 Test Item Value Reference Range Interpretation Comments SODIUM (BEAKER) 134 meq/L 136-145 L (test code = 381) POTASSIUM 4.8 meq/L 3.5-5.1 (BEAKER) (test code = 379) CHLORIDE (BEAKER) 101 meq/L 98-107 (test code = 382) CO2 (BEAKER) 27 meq/L 22-29 (test code = 355) BLOOD UREA 21 mg/dL 7-21 NITROGEN (BEAKER) (test code = 354) CREATININE 0.82 mg/dL 0.57-1.25 (BEAKER) (test code = 358) GLUCOSE RANDOM 126 mg/dL 70-105 H (BEAKER) (test code = 652) CALCIUM (BEAKER) 9.1 mg/dL 8.4-10.2 (test code = 697) EGFR (BEAKER) 92 Interpretatio n of eGFR (test code = mL/min/1.73 values Stage De scription 1092) sq m Result G1 Alondra l or high >=90 G2 Mildly decreased 60-89 G3a Mild ly to moderately 45-5 9 G3b Moderately to s everely 30-44 G4 Severl y decreased 15-29 G5 Kidney failure <15Reported eGF R is based on the CKD-EPI 2020 equation that d oes not use a race coefficientEsti mated GFR is not as accur ate as Creatinine Annemarie roney in predicting glom erular filtration rate . Estimated GFR is not appl icable for dialysis patien ts Senior Software Engineer Analytics ID - RANDY MCBC W/PLT COUNT & AUTO [id number] 05:29:29 Test Item Value Reference Range Interpretation Comments WHITE BLOOD CELL COUNT (BEAKER) 7.2 K/ L 3.5-10.5 (test code = 775) RED BLOOD CELL COUNT (BEAKER) 4.52 M/ L 4.63-6.08 L (test code = 761) HEMOGLOBIN (BEAKER) (test code = 14.1 GM/DL 13.7-17.5 410) HEMATOCRIT (BEAKER) (test code = 40.3 % 40.1-51.0 411) MEAN CORPUSCULAR VOLUME (BEAKER) 89.2 fL 79.0-92.2 (test code = 753) MEAN CORPUSCULAR HEMOGLOBIN 31.2 pg 25.7-32.2 (BEAKER) (test code = 751) MEAN CORPUSCULAR HEMOGLOBIN CONC 35.0 GM/DL 32.3-36.5 (BEAKER) (test code = 752) RED CELL DISTRIBUTION WIDTH 12.4 % 11.6-14.4 (BEAKER) (test code = 412) PLATELET COUNT (BEAKER) (test 242 K/CU MM 150-450 code = 756) MEAN PLATELET VOLUME (BEAKER) 11.1 fL 9.4-12.4 (test code = 754) NUCLEATED RED BLOOD CELLS 0 /100 WBC 0-0 (BEAKER) (test code = 413) NEUTROPHILS RELATIVE PERCENT 84 % (BEAKER) (test code = 429) LYMPHOCYTES RELATIVE PERCENT 6 % (BEAKER) (test code = 430) MONOCYTES RELATIVE PERCENT 7 % (BEAKER) (test code = 431) EOSINOPHILS RELATIVE PERCENT 0 % (BEAKER) (test code = 432) BASOPHILS RELATIVE PERCENT 0 % (BEAKER) (test code = 437) NEUTROPHILS ABSOLUTE COUNT 6.10 K/ L 1.78-5.38 H (BEAKER) (test code = 670) LYMPHOCYTES ABSOLUTE COUNT 0.43 K/ L 1.32-3.57 L (BEAKER) (test code = 414) MONOCYTES ABSOLUTE COUNT (BEAKER) 0.52 K/ L 0.30-0.82 (test code = 415) EOSINOPHILS ABSOLUTE COUNT 0.00 K/ L 0.04-0.54 L (BEAKER) (test code = 416) BASOPHILS ABSOLUTE COUNT (BEAKER) 0.01 K/ L 0.01-0.08 (test code = 417) IMMATURE GRANULOCYTES-RELATIVE 2 % 0-1 H PERCENT (BEAKER) (test code = 2801) POCT-GLUCOSE [id number] 21:30:40 Test Item Value Reference Range Interpretation Comments POC-GLUCOSE METER 168 mg/dL 70-110 H : TESTED A T [facility] 6720 (BEAKER) (test code = [facility], 153) [id number]: Senior Software Engineer Analytics/Techni michael ID = [id number] for DELANEY HAMMOND LETI POCT-GLUCOSE [id number] 14:52:41 Test Item Value Reference Range Interpretation Comments POC-GLUCOSE METER 175 mg/dL 70-110 H : TESTED A T [facility] 6720 (BEAKER) (test code = [facility], 1538) [id number]: Senior Software Engineer Analytics/Techni michael ID = [id number] for Ke nno, [place] POCT-GLUCOSE [id number] 11:37:10 Test Item Value Reference Range Interpretation Comments POC-GLUCOSE METER 223 mg/dL 70-110 H : TESTED A T [facility] 6720 (BEAKER) (test code [facility], = 1538) [id number]: Senior Software Engineer Analytics/Techni michael ID = [id number] for Soye mi, [place] POCT-GLUCOSE [id number] 08:48:14 Test Item Value Reference Range Interpretation Comments POC-GLUCOSE METER 122 mg/dL 70-110 H : TESTED Brent Chiang [facility] 6720 (RAMON) (test code [facility], = 1538) [id number]: Senior Software Engineer Analytics/Techni michael ID = [id number] for Aed Azul CT, BIOPSY, [id number] 08:06:00Please schedule expeditiously, if possible Thursday. Patient needs to begin chemoradiation RADHA to preserve cranial nerve function and tissue diagnosis is needed. This is needed urgently, despite patientbeing COVID+, given rapid progression of tumor. Reason for exam:- >biopsy of right rib mass (or other accessible target) [facility] 1945 Sex: MFINAL REPORT CT guided right rib mass History: biopsy of right rib mass (or other accessible target) Modality: CT, CT fluoroscopy Anesthesia: 1% lidocaine local Approach: Right anterior percutaneous Consent: The risks, benefits, and alternatives to the procedure were discussed with the patient. The patient expressed understanding and informed written consent was obtained. Time out: Apre-procedure time out was performed in order to confirm the appropriate site of the procedure. Sedation: Moderate sedation was administered, including a total of 1.0 mg of Versed and 50 mcg of fentanyl. Continuous monitoring was performed by the operating physician and radiology nursing throughout the procedure. Duration of conscious sedation: 20 minutes. Technique: This exam was performed accordingto our departmental dose optimization program which includes automated exposure control, adjustment of the mA and/or kV according to patient's size and/or use of iterative reconstructive technique. Thepatient was placed supine in the CT scanner. Right rib mass was localized using CT and CT fluoroscopy. After the usual sterile preparation and application of local anesthesia, a 17-gauge introducer needle was advanced into the mass using CT guidance. Using an 18-gauge Temno needle, six passes were made, yielding multiple small fragments. Disposition: The patient tolerated the procedure well, without immediate complications. The patient left CT in stable condition. Impression: 1. Technically successful CT guided core biopsy of a right rib mass. Signed: Emma Bailey Verified Date/Time: 12/17/2021 08:06:57 Reading Location: [facility] [id number] Ortho Consult Reading Room BASIC METABOLIC [id number] 06:50:24 Test Item Value Reference Range Interpretation Comments SODIUM (BEAKER) 132 meq/L 136-145 L (test code = 381) POTASSIUM 4.2 meq/L 3.5-5.1 (BEAKER) (test code = 379) CHLORIDE (BEAKER) 104 meq/L 98-107 (test code = 382) CO2 (BEAKER) 22 meq/L 22-29 (test code = 355) BLOOD UREA 19 mg/dL 7-21 NITROGEN (BEAKER) (test code = 354) CREATININE 0.74 mg/dL 0.57-1.25 (BEAKER) (test code = 358) GLUCOSE RANDOM 125 mg/dL 70-105 H (BEAKER) (test code = 652) CALCIUM (BEAKER) 9.0 mg/dL 8.4-10.2 (test code = 697) EGFR (BEAKER) 94 Interpretatio n of eGFR (test code = mL/min/1.73 values Stage De scription 1092) sq m Result G1 Alondra l or high >=90 G2 Mildly decreased 60-89 G3a Mildl y to moderately 45-5 9 G3b Moderately to s everely 30-44 G4 Severl y decreased 15-29 G5 Kidney failure <15Reported eGF R is based on the CKD-EPI 2021 equation that d oes not use a race coefficientEsti mated GFR is not as accur ate as Creatinine Annemarie roney in predicting glom erular filtration rate . Estimated GFR is not appl icable for dialysis patien ts Senior Software Engineer Analytics ID - PIAYA [id number] 06:50:24 Test Item Value Reference Range Interpretation Comments MAGNESIUM (BEAKER) (test code = 2.1 mg/dL 1.6-2.6 627) Senior Software Engineer Analytics ID - CHARLETTE LCBC W/PLT COUNT & AUTO [id number] 05:18:47 Test Item Value Reference Range Interpretation Comments WHITE BLOOD CELL COUNT (BEAKER) 7.4 K/ L 3.5-10.5 (test code = 775) RED BLOOD CELL COUNT (BEAKER) 4.50 M/ L 4.63-6.08 L (test code = 761) HEMOGLOBIN (BEAKER) (test code = 13.7 GM/DL 13.7-17.5 410) HEMATOCRIT (BEAKER) (test code = 38.9 % 40.1-51.0 L 411) MEAN CORPUSCULAR VOLUME (BEAKER) 86.4 fL 79.0-92.2 (test code = 753) MEAN CORPUSCULAR HEMOGLOBIN 30.4 pg 25.7-32.2 (BEAKER) (test code = 751) MEAN CORPUSCULAR HEMOGLOBIN CONC 35.2 GM/DL 32.3-36.5 (BEAKER) (test code = 752) RED CELL DISTRIBUTION WIDTH 12.2 % 11.6-14.4 (BEAKER) (test code = 412) PLATELET COUNT (BEAKER) (test 240 K/CU MM 150-450 code = 756) MEAN PLATELET VOLUME (BEAKER) 10.9 fL 9.4-12.4 (test code = 754) NUCLEATED RED BLOOD CELLS 0 /100 WBC 0-0 (BEAKER) (test code = 413) NEUTROPHILS RELATIVE PERCENT 84 % (BEAKER) (test code = 429) LYMPHOCYTES RELATIVE PERCENT 7 % (BEAKER) (test code = 430) MONOCYTES RELATIVE PERCENT 7 % (BEAKER) (test code = 431) EOSINOPHILS RELATIVE PERCENT 0 % (BEAKER) (test code = 432) BASOPHILS RELATIVE PERCENT 0 % (BEAKER) (test code = 437) NEUTROPHILS ABSOLUTE COUNT 6.16 K/ L 1.78-5.38 H (BEAKER) (test code = 670) LYMPHOCYTES ABSOLUTE COUNT 0.51 K/ L 1.32-3.57 L (BEAKER) (test code = 414) MONOCYTES ABSOLUTE COUNT (BEAKER) 0.54 K/ L 0.30-0.82 (test code = 415) EOSINOPHILS ABSOLUTE COUNT 0.00 K/ L 0.04-0.54 L (BEAKER) (test code = 416) BASOPHILS ABSOLUTE COUNT (BEAKER) 0.02 K/ L 0.01-0.08 (test code = 417) IMMATURE GRANULOCYTES-RELATIVE 2 % 0-1 H PERCENT (BEAKER) (test code = 2801) POCT-GLUCOSE [id number] 21:21:16 Test Item Value Reference Range Interpretation Comments POC-GLUCOSE METER 146 mg/dL 70-110 H : TESTED A T [facility] 6720 (BEAKER) (test code = [facility], 1538) [id number]: Senior Software Engineer Analytics/Techni michael ID = [id number] for AMANDA PACHECO POCT-GLUCOSE [id number] 18:20:26 Test Item Value Reference Range Interpretation Comments POC-GLUCOSE METER 120 mg/dL 70-110 H : TESTED A T [facility] 6720 (BEAKER) (test code = [facility], 1538) [id number]: Senior Software Engineer Analytics/Techni michael ID = [id number] for Beata johanny (contract)Jama [id number] 15:25:47 Test Item Value Reference Range Interpretation Comments MAGNESIUM (BEAKER) (test code = 2.0 mg/dL 1.6-2.6 627) Senior Software Engineer Analytics ID - BSBASIC METABOLIC [id number] 15:25:46 Test Item Value Reference Range Interpretation Comments SODIUM (BEAKER) 134 meq/L 136-145 L (test code = 381) POTASSIUM 4.0 meq/L 3.5-5.1 (BEAKER) (test code = 379) CHLORIDE (BEAKER) 101 meq/L 98-107 (test code = 382) CO2 (BEAKER) 22 meq/L 22-29 (test code = 355) BLOOD UREA 16 mg/dL 7-21 NITROGEN (BEAKER) (test code = 354) CREATININE 0.75 mg/dL 0.57-1.25 (BEAKER) (test code = 358) GLUCOSE RANDOM 96 mg/dL 70-105 (BEAKER) (test code = 652) CALCIUM (BEAKER) 9.5 mg/dL 8.4-10.2 (test code = 697) EGFR (BEAKER) 94 Interpretatio n of eGFR (test code = mL/min/1.73 values Stage De scription 1092) sq m Result G1 Alondra l or high >=90 G2 Mildly decreased 60-89 G3a Mildl y to moderately 45-5 9 G3b Moderately to s everely 30-44 G4 Severl y decreased 15-29 G5 Kidney failure <15Reported eGF R is based on the CKD-EPI 2020 equation that d oes not use a race coefficientEsti mated GFR is not as accur ate as Creatinine Annemarie roney in predicting glom erular filtration rate . Estimated GFR is not appl icable for dialysis patien ts Senior Software Engineer Analytics ID - BSCBC W/PLT COUNT & AUTO [id number] 14:09:06 Test Item Value Reference Range Interpretation Comments WHITE BLOOD CELL COUNT (BEAKER) 7.5 K/ L 3.5-10.5 (test code = 775) RED BLOOD CELL COUNT (BEAKER) 4.73 M/ L 4.63-6.08 (test code = 761) HEMOGLOBIN (BEAKER) (test code = 14.8 GM/DL 13.7-17.5 410) HEMATOCRIT (BEAKER) (test code = 41.4 % 40.1-51.0 411) MEAN CORPUSCULAR VOLUME (BEAKER) 87.5 fL 79.0-92.2 (test code = 753) MEAN CORPUSCULAR HEMOGLOBIN 31.3 pg 25.7-32.2 (BEAKER) (test code = 751) MEAN CORPUSCULAR HEMOGLOBIN CONC 35.7 GM/DL 32.3-36.5 (BEAKER) (test code = 752) RED CELL DISTRIBUTION WIDTH 12.2 % 11.6-14.4 (BEAKER) (test code = 412) PLATELET COUNT (BEAKER) (test 224 K/CU MM 150-450 code = 756) MEAN PLATELET VOLUME (BEAKER) 11.5 fL 9.4-12.4 (test code = 754) NUCLEATED RED BLOOD CELLS 0 /100 WBC 0-0 (BEAKER) (test code = 413) NEUTROPHILS RELATIVE PERCENT 80 % (BEAKER) (test code = 429) LYMPHOCYTES RELATIVE PERCENT 9 % (BEAKER) (test code = 430) MONOCYTES RELATIVE PERCENT 10 % (BEAKER) (test code = 431) EOSINOPHILS RELATIVE PERCENT 0 % (BEAKER) (test code = 432) BASOPHILS RELATIVE PERCENT 0 % (BEAKER) (test code = 437) NEUTROPHILS ABSOLUTE COUNT 5.94 K/ L 1.78-5.38 H (BEAKER) (test code = 670) LYMPHOCYTES ABSOLUTE COUNT 0.65 K/ L 1.32-3.57 L (BEAKER) (test code = 414) MONOCYTES ABSOLUTE COUNT (BEAKER) 0.78 K/ L 0.30-0.82 (test code = 415) EOSINOPHILS ABSOLUTE COUNT 0.00 K/ L 0.04-0.54 L (BEAKER) (test code = 416) BASOPHILS ABSOLUTE COUNT (BEAKER) 0.01 K/ L 0.01-0.08 (test code = 417) IMMATURE GRANULOCYTES-RELATIVE 1 % 0-1 PERCENT (BEAKER) (test code = 2801) POCT-GLUCOSE [id number] 12:41:55 Test Item Value Reference Range Interpretation Comments POC-GLUCOSE METER 101 mg/dL 70-110 : TESTED A T [facility] 6720 (BEAKER) (test code = [facility], 1538) 11907: Senior Software Engineer Analytics/Techni michael ID = [id number] for Wi lliams (contract), Jama helle POCT-GLUCOSE [id number] 08:43:14 Test Item Value Reference Range Interpretation Comments POC-GLUCOSE METER 113 mg/dL 70-110 H : TESTED A T [facility] 6720 (BEAKER) (test code = [facility], 1538) 08404: Senior Software Engineer Analytics/Techni michael ID = [id number] for Wi lliams (contract), Jama helle POCT-GLUCOSE [id number] 05:55:55 Test Item Value Reference Range Interpretation Comments POC-GLUCOSE METER 125 mg/dL 70-110 H : TESTED A T [facility] 6720 (BEAKER) (test code [facility], = 1538) [id number]: Senior Software Engineer Analytics/Techni michael ID = [id number] for Megan servin (contract)April SARS-CoV2/RT-PCR (Asymptomatic ONLY)2021-12-16 03:19:36 Test Item Value Reference Interpretation Comments Range SARS-COV2/RT-PCR Positive Negative AA The SARS-Co V-2 (test code = target nucleic 93472-4) acids are detec kristopher in this specime n. The presence SARS-CoV-2 nucl eic acids cannot ru le out co-infectio ns or disease caus ed by other viral or bacterial pathogens. As w ith any molecular t est, mutations withi n the target berry ons of the Xpert Xp ress SARS-CoV-2 test could affect pr perry and/or probe binding resulti ng in failure to detect the pres ence of virus or the virus being detected less predictably. Fa lse negative result s may occur if vi jonathan is present at levels below th e analytical limi t of detection. This SARS CoV-2 test is a rapid, real-t rj RT-PCR test intended for th e qualitative detection of nucleic acid fr om SARS-CoV-2 in a nasopharyngeal swab specimen collec kristopher from individual s suspected of COVID-19 by the ir healthcare provider. Resul ts from the Xpert Xpress SARS-CoV -2 test should be correlated with the clinical histor y, epidemiological data, and other data available to the clinician evaluating the patient. Viral nucleic acid ma y persist in vivo , independent of virus viability . Detection of analyte target( s) does not imply that the correspondi ng virus(es) are infectious or a re the causative agents for clin ical symptoms. JUSTIN (test code = This test has been JUSTIN) authorized by FDA under an EUA for use by authorized laboratories. This test is only authorized for the duration of the declaration that circumstances exist justifying the authorization of emergency use of in vitro diagnostic tests for detection and/or diagnosis of COVID-19 under Section 564(b)(1) of the Federal Food, Drug and Cosmetic Act, 21 U.S.C. 360bbb-3(b)(1), unless the authorization is terminated or revoked sooner. Fact Sheet for Healthcare Providers: https://www.[employer]/Documents/Xp ert%20Xpress%20SAR S%20CoV-2/Fact%20S heets/302-8239%20S ARS-COV-2%20HEALTH CARE%20PROVIDERS%2 0FACT%20SHEET.pdf Fact Sheet for Healthcare Patients: https://www.[employer]/Documents/Xp ert%20Xpress%20SAR S%20CoV-2/Fact%20S heets/302-3801%20S ARS-COV-2%20PATIEN T%20FACT%20SHEET.p df Lab Interpretation Abnormal (test code = 40949-0) [facility] 03:19:36 Test Item Value Reference Interpretation Comments Range SARS-COV2/RT-PCR Positive Negative AA The SARS-Co V-2 (test code = target nucleic 65129-1) acids are detec kristopher in this specime n. The presence SARS-CoV-2 nucl eic acids cannot ru le out co-infectio ns or disease caus ed by other viral or bacterial pathogens. As w ith any molecular t est, mutations withi n the target berry ons of the Xpert Xp ress SARS-CoV-2 test could affect pr perry and/or probe binding resulti ng in failure to detect the pres ence of virus or the virus being detected less predictably. Fa lse negative result s may occur if vi jonathan is present at levels below th e analytical limi t of detection. This SARS CoV-2 test is a rapid, real-t rj RT-PCR test intended for th e qualitative detection of nucleic acid fr om SARS-CoV-2 in a nasopharyngeal swab specimen collec kristopher from individual s suspected of COVID-19 by the ir healthcare provider. Resul ts from the Xpert Xpress SARS-CoV -2 test should be correlated with the clinical histor y, epidemiological data, and other data available to the clinician evaluating the patient. Viral nucleic acid ma y persist in vivo , independent of virus viability . Detection of analyte target( s) does not imply that the correspondi ng virus(es) are infectious or a re the causative agents for clin ical symptoms. JUSTIN (test code = This test has been JUSTIN) authorized by FDA under an EUA for use by authorized laboratories. This test is only authorized for the duration of the declaration that circumstances exist justifying the authorization of emergency use of in vitro diagnostic tests for detection and/or diagnosis of COVID-19 under Section 564(b)(1) of the Federal Food, Drug and Cosmetic Act, 21 U.S.C. 360bbb-3(b)(1), unless the authorization is terminated or revoked sooner. Fact Sheet for Healthcare Providers: https://www.[employer]/Documents/Xp ert%20Xpress%20SAR S%20CoV-2/Fact%20S heets/302-3802%20S ARS-COV-2%20HEALTH CARE%20PROVIDERS%2 0FACT%20SHEET.pdf Fact Sheet for Healthcare Patients: https://www.[employer]/Documents/Xp ert%20Xpress%20SAR S%20CoV-2/Fact%20S heets/302-3801%20S ARS-COV-2%20PATIEN T%20FACT%20SHEET.p df Lab Interpretation Abnormal (test code = 82601-7) [facility]2021-12-16 03:19:36 Test Item Value Reference Interpretation Comments Range SARS-COV2/RT-PCR Positive Negative AA The SARS-Co V-2 (test code = target nucleic 51576-7) acids are detec kristopher in this specime n. The presence SARS-CoV-2 nucl eic acids cannot ru le out co-infectio ns or disease caus ed by other viral or bacterial pathogens. As w ith any molecular t est, mutations withi n the target berry ons of the Xpert Xp ress SARS-CoV-2 test could affect pr perry and/or probe binding resulti ng in failure to detect the pres ence of virus or the virus being detected less predictably. Fa lse negative result s may occur if vi jonathan is present at levels below th e analytical limi t of detection. This SARS CoV-2 test is a rapid, real-t rj RT-PCR test intended for th e qualitative detection of nucleic acid fr om SARS-CoV-2 in a nasopharyngeal swab specimen collec kristopher from individual s suspected of COVID-19 by the ir healthcare provider. Resul ts from the Xpert Xpress SARS-CoV -2 test should be correlated with the clinical histor y, epidemiological data, and other data available to the clinician evaluating the patient. Viral nucleic acid ma y persist in vivo , independent of virus viability . Detection of analyte target( s) does not imply that the correspondi ng virus(es) are infectious or a re the causative agents for clin ical symptoms. JUSTIN (test code = This test has been JUSTIN) authorized by FDA under an EUA for use by authorized laboratories. This test is only authorized for the duration of the declaration that circumstances exist justifying the authorization of emergency use of in vitro diagnostic tests for detection and/or diagnosis of COVID-19 under Section 564(b)(1) of the Federal Food, Drug and Cosmetic Act, 21 U.S.C. 360bbb-3(b)(1), unless the authorization is terminated or revoked sooner. Fact Sheet for Healthcare Providers: https://www.[employer]/Documents/Xp ert%20Xpress%20SAR S%20CoV-2/Fact%20S heets/302-3802%20S ARS-COV-2%20HEALTH CARE%20PROVIDERS%2 0FACT%20SHEET.pdf Fact Sheet for Healthcare Patients: https://www.[employer]/Documents/Xp ert%20Xpress%20SAR S%20CoV-2/Fact%20S heets/302-3801%20S ARS-COV-2%20PATIEN T%20FACT%20SHEET.p df Lab Interpretation Abnormal (test code = 00971-2) [facility]21-12-16 03:19:36 Test Item Value Reference Interpretation Comments Range SARS-COV2/RT-PCR Positive Negative AA The SARS-Co V-2 (test code = target nucleic 33804-8) acids are detec kristopher in this specime n. The presence SARS-CoV-2 nucl eic acids cannot ru le out co-infectio ns or disease caus ed by other viral or bacterial pathogens. As w ith any molecular t est, mutations withi n the target berry ons of the Xpert Xp ress SARS-CoV-2 test could affect pr perry and/or probe binding resulti ng in failure to detect the pres ence of virus or the virus being detected less predictably. Fa lse negative result s may occur if vi jonathan is present at levels below th e analytical limi t of detection. This SARS CoV-2 test is a rapid, real-t rj RT-PCR test intended for th e qualitative detection of nucleic acid fr om SARS-CoV-2 in a nasopharyngeal swab specimen collec kristopher from individual s suspected of COVID-19 by the ir healthcare provider. Resul ts from the Xpert Xpress SARS-CoV -2 test should be correlated with the clinical histor y, epidemiological data, and other data available to the clinician evaluating the patient. Viral nucleic acid ma y persist in vivo , independent of virus viability . Detection of analyte target( s) does not imply that the correspondi ng virus(es) are infectious or a re the causative agents for clin ical symptoms. JUSTIN (test code = This test has been JUSTIN) authorized by FDA under an EUA for use by authorized laboratories. This test is only authorized for the duration of the declaration that circumstances exist justifying the authorization of emergency use of in vitro diagnostic tests for detection and/or diagnosis of COVID-19 under Section 564(b)(1) of the Federal Food, Drug and Cosmetic Act, 21 U.S.C. 360bbb-3(b)(1), unless the authorization is terminated or revoked sooner. Fact Sheet for Healthcare Providers: https://www.[employer]/Documents/Xp ert%20Xpress%20SAR S%20CoV-2/Fact%20S heets/302-3802%20S ARS-COV-2%20HEALTH CARE%20PROVIDERS%2 0FACT%20SHEET.pdf Fact Sheet for Healthcare Patients: https://www.[employer]/Documents/Xp ert%20Xpress%20SAR S%20CoV-2/Fact%20S heets/302-3801%20S ARS-COV-2%20PATIEN T%20FACT%20SHEET.p df Lab Interpretation Abnormal (test code = 19215-3) [facility]21-12-16 03:19:36 Test Item Value Reference Interpretation Comments Range SARS-COV2/RT-PCR Positive Negative AA The SARS-Co V-2 (test code = target nucleic 18922-3) acids are detec kristopher in this specime n. The presence SARS-CoV-2 nucl eic acids cannot ru le out co-infectio ns or disease caus ed by other viral or bacterial pathogens. As w ith any molecular t est, mutations withi n the target berry ons of the Xpert Xp ress SARS-CoV-2 test could affect pr perry and/or probe binding resulti ng in failure to detect the pres ence of virus or the virus being detected less predictably. Fa lse negative result s may occur if vi jonathan is present at levels below th e analytical limi t of detection. This SARS CoV-2 test is a rapid, real-t rj RT-PCR test intended for th e qualitative detection of nucleic acid fr om SARS-CoV-2 in a nasopharyngeal swab specimen collec kristopher from individual s suspected of COVID-19 by the ir healthcare provider. Resul ts from the Xpert Xpress SARS-CoV -2 test should be correlated with the clinical histor y, epidemiological data, and other data available to the clinician evaluating the patient. Viral nucleic acid ma y persist in vivo , independent of virus viability . Detection of analyte target( s) does not imply that the correspondi ng virus(es) are infectious or a re the causative agents for clin ical symptoms. JUSTIN (test code = This test has been JUSTIN) authorized by FDA under an EUA for use by authorized laboratories. This test is only authorized for the duration of the declaration that circumstances exist justifying the authorization of emergency use of in vitro diagnostic tests for detection and/or diagnosis of COVID-19 under Section 564(b)(1) of the Federal Food, Drug and Cosmetic Act, 21 U.S.C. 360bbb-3(b)(1), unless the authorization is terminated or revoked sooner. Fact Sheet for Healthcare Providers: https://www.[employer]/Documents/Xp ert%20Xpress%20SAR S%20CoV-2/Fact%20S heets/302-3802%20S ARS-COV-2%20HEALTH CARE%20PROVIDERS%2 0FACT%20SHEET.pdf Fact Sheet for Healthcare Patients: https://www.[employer]/Documents/Xp ert%20Xpress%20SAR S%20CoV-2/Fact%20S heets/302-3801%20S ARS-COV-2%20PATIEN T%20FACT%20SHEET.p df Lab Interpretation Abnormal (test code = 66622-0) [facility]2021-12-16 03:19:36 Test Item Value Reference Range Interpretation Comments SARS-COV2/RT-PCR Positive Negative AA The SARS-Co V-2 target (test code = nucleic acids a re detected ) in this specime n. The presence SARS-C oV-2 nucleic acids cannot ru le out co-infections o r disease caused by other viral or bacterial patho gens. As with any molecular t est, mutations withi n the target regions of the Xpert Xpress SARS-CoV-2 test could affect primer and/or p robe binding resulting in fa ilure to detect the pres ence of virus or the virus be ing detected less predictabl y. False negative result s may occur if virus is pre sent at levels below th e analytical limit of detect ion. This SARS CoV-2 test is a rapid, real-time RT-PC R test intended for e qualitative detection of nu cleic acid from SARS-CoV-2 in a nasopharyngeal swab specimen collected from individuals suspected of CO VID-[facility]. Results from e Xpert Xpress SARS-CoV -2 test should be corre lated with the clinical hi story, epidemiological data, and other data avai lable to the clinician evalu ating the patient. Viral nucleic acid may persist in vivo, independent of virus viability. Dete ction of analyte target( s) does not imply that the corresponding virus(es) are i nfectious or are the causati ve agents for clinical sympto ms. This test has been authorized by FDA under an EUA for use by authorized laboratories. This test is only authorized for the duration of the declaration that circumstances exist justifying the authorization of emergency use of in vitro diagnostic tests for detection and/or diagnosis of COVID-19 under Section 564(b)(1) of the Federal Food, Drug and Cosmetic Act, 21 U.S.C. 360bbb-3(b)(1), unless the authorization is terminated or revoked sooner. Fact Sheet for Healthcare Providers: https://www.[employer]/Documents/Xpert%20Xpress%20SARS%20CoV-2/Fact%20Sheets/597-8665%26GXEY-VDE-9%20 HEALTHCARE%20PROVIDERS%20FACT%20SHEET.pdf Fact Sheet for Healthcare Patients: https://www.[employer]/Documents/Xpert%20Xp ress%20SARS%20CoV-2/Fact%20Sheets/302-3801%85ZWPP-YVU-0%20PATIENT%20FACT%20SHEET .pdfPOCT-GLUCOSE [id number] 23:04:12 Test Item Value Reference Range Interpretation Comments POC-GLUCOSE METER 132 mg/dL 70-110 H : TESTED A T [facility] 6720 (BEAKER) (test code = [facility], 1538) [id number]: Senior Software Engineer Analytics/Techni michael ID = [id number] for Bridgette Bobby POCT-GLUCOSE [id number] 21:15:13 Test Item Value Reference Range Interpretation Comments POC-GLUCOSE METER 166 mg/dL 70-110 H : TESTED A T [facility]20 (BEAKER) (test code [facility], = 1538) 87750: Senior Software Engineer Analytics/Techni michael ID = [id number] for Megan servin (contract)April renetta PROTHROMBIN [id number] 18:46:26 Test Item Value Reference Range Interpretation Comments PROTIME (BEAKER) 13.8 seconds 11.9-14.2 (test code = 759) INR (BEAKER) (test 1.08 See_Comment [Automat ed message] code = 370) The system [employer] generated this result transmitted ref erence range: <=5.90. The reference range was not used to int erpret this result as normal/abnormal . RECOMMENDED COUMADIN/WARFARIN INR THERAPY RANGESSTANDARD DOSE: 2.0 - 3.0 Includes: PROPHYLAXIS for venous thrombosis, systemic embolization; TREATMENT for venous thrombosis and/or pulmonary embolus.HIGH RISK: Target INR is 2.5-3.5 for patients with mechanical heart valves.POCT-GLUCOSE [id number] 17:57:02 Test Item Value Reference Range Interpretation Comments POC-GLUCOSE METER 183 mg/dL 70-110 H : TESTED A T [facility] (BEAKER) (test code = [facility], 153) [id number]: Senior Software Engineer Analytics/Techni michael ID = [id number] for Beata persaud (contract)[place] POCT-GLUCOSE [id number] 13:22:33 Test Item Value Reference Range Interpretation Comments POC-GLUCOSE METER 119 mg/dL 70-110 H : TESTED A T [facility] 6720 (BEAKER) (test code = [facility] [place], 1538) [id number]: Senior Software Engineer Analytics/Techni michael ID = [id number] for Beata persaud (contract), [facility] POCT-GLUCOSE [id number] 11:34:29 Test Item Value Reference Range Interpretation Comments POC-GLUCOSE METER 119 mg/dL 70-110 H : TESTED A T [facility] 6720 (BEAKER) (test code = SOTO Nguyen [facility], 1538) [id number]: Senior Software Engineer Analytics/Techni michael ID = [id number] for Beata persaud (contract), [facility] BASIC METABOLIC [id number] 07:08:55 Test Item Value Reference Range Interpretation Comments SODIUM (BEAKER) 137 meq/L 136-145 (test code = 381) POTASSIUM 4.0 meq/L 3.5-5.1 Specimen slight ly (BEAKER) (test hemolyzed code = 379) CHLORIDE (BEAKER) 105 meq/L 98-107 (test code = 382) CO2 (BEAKER) 23 meq/L 22-29 (test code = 355) BLOOD UREA 15 mg/dL 7-21 NITROGEN (BEAKER) (test code = 354) CREATININE 0.73 mg/dL 0.57-1.25 Specimen slight ly (BEAKER) (test hemolyzed code = 358) GLUCOSE RANDOM 124 mg/dL 70-105 H (BEAKER) (test code = 652) CALCIUM (BEAKER) 9.2 mg/dL 8.4-10.2 (test code = 697) EGFR (BEAKER) 94 Interpretatio n of eGFR (test code = mL/min/1.73 values Stage De scription 1092) sq m Result G1 Alondra l or high >=90 G2 Mildly decreased 60-89 G3a Mildl y to moderately 45-5 9 G3b Moderately to s everely 30-44 G4 Severl y decreased 15-29 G5 Kidney failure <15Reported eGF R is based on the CKD-EPI 2020 equation that d oes not use a race coefficientEsti mated GFR is not as accur ate as Creatinine Annemarie roney in predicting glom erular filtration rate . Estimated GFR is not appl icable for dialysis patien ts Senior Software Engineer Analytics ID - PIAYA [id number] 07:08:54 Test Item Value Reference Range Interpretation Comments MAGNESIUM (BEAKER) 2.0 mg/dL 1.6-2.6 Specimen slightly (test code = 627) hemolyzed Senior Software Engineer Analytics ID - PIAYA LCBC W/PLT COUNT & AUTO [id number] 06:09:14 Test Item Value Reference Range Interpretation Comments WHITE BLOOD CELL COUNT (BEAKER) 6.7 K/ L 3.5-10.5 (test code = 775) RED BLOOD CELL COUNT (BEAKER) 4.40 M/ L 4.63-6.08 L (test code = 761) HEMOGLOBIN (BEAKER) (test code = 13.5 GM/DL 13.7-17.5 L 410) HEMATOCRIT (BEAKER) (test code = 37.4 % 40.1-51.0 L 411) MEAN CORPUSCULAR VOLUME (BEAKER) 85.0 fL 79.0-92.2 (test code = 753) MEAN CORPUSCULAR HEMOGLOBIN 30.7 pg 25.7-32.2 (BEAKER) (test code = 751) MEAN CORPUSCULAR HEMOGLOBIN CONC 36.1 GM/DL 32.3-36.5 (BEAKER) (test code = 752) RED CELL DISTRIBUTION WIDTH 12.4 % 11.6-14.4 (BEAKER) (test code = 412) PLATELET COUNT (BEAKER) (test 227 K/CU MM 150-450 code = 756) MEAN PLATELET VOLUME (BEAKER) 11.3 fL 9.4-12.4 (test code = 754) NUCLEATED RED BLOOD CELLS 0 /100 WBC 0-0 (BEAKER) (test code = 413) NEUTROPHILS RELATIVE PERCENT 86 % (BEAKER) (test code = 429) LYMPHOCYTES RELATIVE PERCENT 7 % (BEAKER) (test code = 430) MONOCYTES RELATIVE PERCENT 6 % (BEAKER) (test code = 431) EOSINOPHILS RELATIVE PERCENT 0 % (BEAKER) (test code = 432) BASOPHILS RELATIVE PERCENT 0 % (BEAKER) (test code = 437) NEUTROPHILS ABSOLUTE COUNT 5.80 K/ L 1.78-5.38 H (BEAKER) (test code = 670) LYMPHOCYTES ABSOLUTE COUNT 0.44 K/ L 1.32-3.57 L (BEAKER) (test code = 414) MONOCYTES ABSOLUTE COUNT (BEAKER) 0.42 K/ L 0.30-0.82 (test code = 415) EOSINOPHILS ABSOLUTE COUNT 0.00 K/ L 0.04-0.54 L (BEAKER) (test code = 416) BASOPHILS ABSOLUTE COUNT (BEAKER) 0.01 K/ L 0.01-0.08 (test code = 417) IMMATURE GRANULOCYTES-RELATIVE 1 % 0-1 PERCENT (BEAKER) (test code = 2801) POCT-GLUCOSE [id number] 21:30:42 Test Item Value Reference Range Interpretation Comments POC-GLUCOSE METER 143 mg/dL 70-110 H : TESTED A T [facility] 6720 (BEAKER) (test code = [facility], 1538) [id number]: Senior Software Engineer Analytics/Techni michael ID = [id number] for LETI THOMAS CARCINOEMBRYONIC ANTIGEN (CEA)2021-12-14 19:50:58 Test Item Value Reference Range Interpretation Comments CARCINOEMBRYONIC ANTIGEN (BEAKER) 98.3 ng/mL 0.0-5.0 H (test code = 685) Senior Software Engineer Analytics ID - MITCHPOCT-GLUCOSE [id number] 17:50:51 Test Item Value Reference Range Interpretation Comments POC-GLUCOSE METER 154 mg/dL 70-110 H : TESTED A T [facility] 6720 (BEAKER) (test code = [facility], 1538) [id number]: Senior Software Engineer Analytics/Techni michael ID = [id number] for Brenda Walden MR, SPINE, LUMBAR, [id number] 13:13:00Unlisted Reason for Exam - Click Yes and Enter Reason Below->No [facility] 1945 Sex: MFINAL REPORT MR, SPINE, LUMBAR, WITH \\T\\ WITHOUT CONTRAST INDICATION: Bone neoplasm, lumbar, recurrence suspectedCompression fracture, lumbar, known malignancy COMPARISON: None TECHNIQUE: Multiplanar, multisequence MR images of the lumbar spine with and without contrast. FINDINGS: 5 nonrib-bearing lumbar- type vertebral bodies are present. Alignment of the lumbar spine is within normal limits. Vertebral body height is maintained. 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 No consequent pathologic fracture.Multilevel disc space height loss is present. Conus terminates at L1.Cauda equina demonstrates normal appearance.No acute findings in the paraspinal soft tissues. Evaluation of the individual levels demonstrates: L1/L2: Mild disc bulge. Ligamentum flavum thickening. Bilateral facet arthropathy and hypertrophy. No significant canal or foraminal stenosis.L2/L3: Diffuse disc bulge, asymmetric to the left. Ligamentum flavum thickening. Bilateral facet arthropathy and hypertrophy. Prominent posterior epidural fat. Moderate spinal canal stenosis. Mild left foraminal stenosis.L3/L4: Diffuse disc bulge. Ligamentum flavum thickening. Bilateral facet arthropathy and hypertrophy. Prominent posterior epidural fat. Mild spinal canal narrowing. Moderate right foraminal stenosis with crowding of the exiting right L3 nerve root.L4/L5: Diffuse disc bulge. Ligamentum flavum thickening. Bilateral facet arthropathy and hypertrophy. Prominent posterior epidural fat. Moderate versus severe spinal canal stenosis. Moderate right foraminal stenosis with impingement of the exiting right L4 nerve root.L5/S1: No significant canal or foraminal stenosis. 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 No consequent pathologic fracture. No epidural disease, impingement of the conus or cauda equina nerve roots.2.Chronic disc and facet degeneration contributes to moderate versus severe canal stenosis at L4-L5.3.Moderate right foraminal stenosis at L3-L4 and L4-L5 with crowding the exiting right L3-L4 nerve roots. Signed: Sarah Borges Verified Date/Time: 12/14/2021 13:13:11 POCT-GLUCOSE [id number] 12:13:26 Test Item Value Reference Range Interpretation Comments POC-GLUCOSE METER 182 mg/dL 70-110 H : TESTED A T [facility] 6720 (BEAKER) (test code = SOTO Nguyen [place], 1538) [id number]: Senior Software Engineer Analytics/Techni michael ID = [id number] for Brenda Walden BASIC METABOLIC [id number] 08:11:23 Test Item Value Reference Range Interpretation Comments SODIUM (BEAKER) 136 meq/L 136-145 (test code = 381) POTASSIUM 4.2 meq/L 3.5-5.1 (BEAKER) (test code = 379) CHLORIDE (BEAKER) 103 meq/L 98-107 (test code = 382) CO2 (BEAKER) 24 meq/L 22-29 (test code = 355) BLOOD UREA 21 mg/dL 7-21 NITROGEN (BEAKER) (test code = 354) CREATININE 0.80 mg/dL 0.57-1.25 (BEAKER) (test code = 358) GLUCOSE RANDOM 120 mg/dL 70-105 H (BEAKER) (test code = 652) CALCIUM (BEAKER) 9.7 mg/dL 8.4-10.2 (test code = 697) EGFR (BEAKER) 92 Interpretatio n of eGFR (test code = mL/min/1.73 values Stage De scription 1092) sq m Result G1 Alondra l or high >=90 G2 Mildly decreased 60-89 G3a Mildl y to moderately 45-5 9 G3b Moderately to s everely 30-44 G4 Severl y decreased 15-29 G5 Kidney failure <15Reported eGF R is based on the CKD-EPI 2020 equation that d oes not use a race coefficientEsti mated GFR is not as accur ate as Creatinine Annemarie sim in predicting glom erular filtration rate . Estimated GFR is not appl icable for dialysis patien ts Senior Software Engineer Analytics ID - RANDY [id number] 08:11:23 Test Item Value Reference Range Interpretation Comments MAGNESIUM (BEAKER) (test code = 2.1 mg/dL 1.6-2.6 627) Senior Software Engineer Analytics ID - RANDY MPOCT-GLUCOSE [id number] 08:11:12 Test Item Value Reference Range Interpretation Comments POC-GLUCOSE METER 134 mg/dL 70-110 H : TESTED A T [facility] 6720 (BEAKER) (test code = SOTO Nguyen [facility], 1538) [id number]: Senior Software Engineer Analytics/Techni michael ID = [id number] for Brenda Walden CBC W/PLT COUNT & AUTO [id number] 05:59:56 Test Item Value Reference Range Interpretation Comments WHITE BLOOD CELL COUNT (BEAKER) 6.4 K/ L 3.5-10.5 (test code = 775) RED BLOOD CELL COUNT (BEAKER) 4.41 M/ L 4.63-6.08 L (test code = 761) HEMOGLOBIN (BEAKER) (test code = 13.8 GM/DL 13.7-17.5 410) HEMATOCRIT (BEAKER) (test code = 38.5 % 40.1-51.0 L 411) MEAN CORPUSCULAR VOLUME (BEAKER) 87.3 fL 79.0-92.2 (test code = 753) MEAN CORPUSCULAR HEMOGLOBIN 31.3 pg 25.7-32.2 (BEAKER) (test code = 751) MEAN CORPUSCULAR HEMOGLOBIN CONC 35.8 GM/DL 32.3-36.5 (BEAKER) (test code = 752) RED CELL DISTRIBUTION WIDTH 12.2 % 11.6-14.4 (BEAKER) (test code = 412) PLATELET COUNT (BEAKER) (test 240 K/CU MM 150-450 code = 756) MEAN PLATELET VOLUME (BEAKER) 10.5 fL 9.4-12.4 (test code = 754) NUCLEATED RED BLOOD CELLS 0 /100 WBC 0-0 (BEAKER) (test code = 413) NEUTROPHILS RELATIVE PERCENT 85 % (BEAKER) (test code = 429) LYMPHOCYTES RELATIVE PERCENT 8 % (BEAKER) (test code = 430) MONOCYTES RELATIVE PERCENT 6 % (BEAKER) (test code = 431) EOSINOPHILS RELATIVE PERCENT 0 % (BEAKER) (test code = 432) BASOPHILS RELATIVE PERCENT 0 % (BEAKER) (test code = 437) NEUTROPHILS ABSOLUTE COUNT 5.46 K/ L 1.78-5.38 H (BEAKER) (test code = 670) LYMPHOCYTES ABSOLUTE COUNT 0.54 K/ L 1.32-3.57 L (BEAKER) (test code = 414) MONOCYTES ABSOLUTE COUNT (BEAKER) 0.41 K/ L 0.30-0.82 (test code = 415) EOSINOPHILS ABSOLUTE COUNT 0.00 K/ L 0.04-0.54 L (BEAKER) (test code = 416) BASOPHILS ABSOLUTE COUNT (BEAKER) 0.00 K/ L 0.01-0.08 L (test code = 417) IMMATURE GRANULOCYTES-RELATIVE 0 % 0-1 PERCENT (BEAKER) (test code = 2801) CT, BRAIN, WITHOUT [id number] 22:16:00 [facility] : 1945 Sex: MFINAL REPORT Exam: CT angiogram of the head with and without contrast. Exam: CT angiogram of the neck with contrast. History: Brain and COOK MANAGER neoplasm. Comparison: MRI brain 12/13/2021 Technique: Helical axial imaging was acquired from the level of the superior mediastinum through the vertex of the head after IV administration of 100 mL of Isovue-370. 3D multiplanar MIPs were acquired. Routine unenhanced CT of the head also performed. NASCET criteria was followed to measure the internal carotid stenosis with diameter of the distal cervical ICA used as the denominator. Post marginal radiation reduction technique was used. Findings: CT head:As on the MRI, there is an expansile osseousmass extending into the LEFT temporal region invading the LEFT cavernous sinus and Meckel's cave. There is a relatively large amount of surrounding vasogenic edema in the LEFT temporal lobe but no significant mass effect. There is moderate cerebral atrophy and mild chronic small vessel ischemic white matter disease. The lesion is dense on unenhanced CT. Opacification of the LEFT mastoids. CT angiogram of the neck:The aortic arch, brachiocephalic trunk and bilateral subclavian arteries are widely patent. On the RIGHT, the common carotid artery, internal carotid artery and external carotid artery arewidely patent. No hemodynamically significant stenosis. No evidence of dissection. The RIGHT vertebral artery is widely patent. On the LEFT, the common carotid artery, internal carotid artery and external carotid artery are widely patent. No hemodynamically significant stenosis. No evidence of dissection. The LEFT vertebral artery is widely patent. Normal appearance of the parotid, submandibular and thyroid glands. No pathologic-appearing cervical lymph nodes. No acute findings in the lung apices. Extensive mixed lytic and sclerotic osseous metastatic disease in the cervical spine. CT angiogram of the head:Both intracranial internal carotid arteries are widely patent. The LEFT extra-axial mass encases the LEFT cavernous carotid artery but there is no significant stenosis. Bilateral anterior and middle cerebral arteries are widely patent. The vertebral arteries, cerebellar arteries, basilar artery are widely patent. No evidence of aneurysm or AVM. The posterior cerebral arteries are widely patent. Posterior communicating arteries are not visible. The dural venous sinuses are widely patent. IMPRESSION: 1. LEFT temporal extra-axial mass most likely arising from the LEFT middle cranial fossa thatremains indeterminate. Given the relatively diffuse osseous metastatic disease, expansile metastaticosseous lesion is favored.2. The mass encases the LEFT cavernous carotid artery but there is no significant arterial stenosis or aneurysm. Signed: To Michel MDReport Verified Date/Time: 12/13/2021 22:16:32 [facility], CTANGIO [id number] 22:16:00Unlisted Reason for Exam - Click Yes and Enter Reason Below- >Noevaluation of vascular relationship to tumor [facility] 1945 Sex: MFINAL REPORT Exam: CT angiogram of the head with and without contrast. Exam: CT angiogram of the neck with contrast. History: Brain and COOK MANAGER neoplasm. Comparison: MRI brain 12/13/2021 Technique: Helical axial imaging was acquired from the level of the superior mediastinum through the vertex of the head after IV administration of 100 mL of Isovue-370. 3D multiplanar MIPs were acquired. Routine unenhanced CT of the head also performed. NASCET criteria was followed to measure the internal carotid stenosis with diameter of the distal cervical ICA used as the denominator. Post marginal radiation reduction technique was used. Findings: CT head:As on the MRI, there is an expansile osseousmass extending into the LEFT temporal region invading the LEFT cavernous sinus and Meckel's cave. There is a relatively large amount of surrounding vasogenic edema in the LEFT temporal lobe but no significant mass effect. There is moderate cerebral atrophy and mild chronic small vessel ischemic white matter disease. The lesion is dense on unenhanced CT. Opacification of the LEFT mastoids. CT angiogram of the neck:The aortic arch, brachiocephalic trunk and bilateral subclavian arteries are widely patent. On the RIGHT, the common carotid artery, internal carotid artery and external carotid artery arewidely patent. No hemodynamically significant stenosis. No evidence of dissection. The RIGHT vertebral artery is widely patent. On the LEFT, the common carotid artery, internal carotid artery and external carotid artery are widely patent. No hemodynamically significant stenosis. No evidence of dissection. The LEFT vertebral artery is widely patent. Normal appearance of the parotid, submandibular and thyroid glands. No pathologic-appearing cervical lymph nodes. No acute findings in the lung apices. Extensive mixed lytic and sclerotic osseous metastatic disease in the cervical spine. CT angiogram of the head:Both intracranial internal carotid arteries are widely patent. The LEFT extra-axial mass encases the LEFT cavernous carotid artery but there is no significant stenosis. Bilateral anterior and middle cerebral arteries are widely patent. The vertebral arteries, cerebellar arteries, basilar artery are widely patent. No evidence of aneurysm or AVM. The posterior cerebral arteries are widely patent. Posterior communicating arteries are not visible. The dural venous sinuses are widely patent. IMPRESSION: 1. LEFT temporal extra-axial mass most likely arising from the LEFT middle cranial fossa thatremains indeterminate. Given the relatively diffuse osseous metastatic disease, expansile metastaticosseous lesion is favored.2. The mass encases the LEFT cavernous carotid artery but there is no significant arterial stenosis or aneurysm. Signed: To Michel MDReport Verified Date/Time: 12/13/2021 22:16:32 CT, CAROTID, [id number] 22:16:00Unlisted Reason for Exam - Click Yes and Enter Reason Below- >YesUnlisted Reason for Exam->Skull base tumor [facility] 1945 Sex: MFINAL REPORT Exam: CT angiogram of the head with and without contrast. Exam: CT angiogram of the neck with contrast. History: Brain and COOK MANAGER neoplasm. Comparison: MRI brain 12/13/2021 Technique: Helical axial imaging was acquired from the level of the superior mediastinum through the vertex of the head after IV administration of 100 mL of Isovue-370. 3D multiplanar MIPs were acquired. Routine unenhanced CT of the head also performed. NASCET criteria was followed to measure the internal carotid stenosis with diameter of the distal cervical ICA used as the denominator. Post marginal radiation reduction technique was used. Findings: CT head:As on the MRI, there is an expansile osseousmass extending into the LEFT temporal region invading the LEFT cavernous sinus and Meckel's cave. There is a relatively large amount of surrounding vasogenic edema in the LEFT temporal lobe but no significant mass effect. There is moderate cerebral atrophy and mild chronic small vessel ischemic white matter disease. The lesion is dense on unenhanced CT. Opacification of the LEFT mastoids. CT angiogram of the neck:The aortic arch, brachiocephalic trunk and bilateral subclavian arteries are widely patent. On the RIGHT, the common carotid artery, internal carotid artery and external carotid artery arewidely patent. No hemodynamically significant stenosis. No evidence of dissection. The RIGHT vertebral artery is widely patent. On the LEFT, the common carotid artery, internal carotid artery and external carotid artery are widely patent. No hemodynamically significant stenosis. No evidence of dissection. The LEFT vertebral artery is widely patent. Normal appearance of the parotid, submandibular and thyroid glands. No pathologic-appearing cervical lymph nodes. No acute findings in the lung apices. Extensive mixed lytic and sclerotic osseous metastatic disease in the cervical spine. CT angiogram of the head:Both intracranial internal carotid arteries are widely patent. The LEFT extra-axial mass encases the LEFT cavernous carotid artery but there is no significant stenosis. Bilateral anterior and middle cerebral arteries are widely patent. The vertebral arteries, cerebellar arteries, basilar artery are widely patent. No evidence of aneurysm or AVM. The posterior cerebral arteries are widely patent. Posterior communicating arteries are not visible. The dural venous sinuses are widely patent. IMPRESSION: 1. LEFT temporal extra-axial mass most likely arising from the LEFT middle cranial fossa thatremains indeterminate. Given the relatively diffuse osseous metastatic disease, expansile metastaticosseous lesion is favored.2. The mass encases the LEFT cavernous carotid artery but there is no significant arterial stenosis or aneurysm. Signed: To [facility] Verified Date/Time: 12/13/2021 22:16:32 POCT-GLUCOSE [id number] 22:06:07 Test Item Value Reference Range Interpretation Comments POC-GLUCOSE METER 125 mg/dL 70-110 H : TESTED A T [facility] 6720 (RAMON) (test code = IRENECARLA Nguyen [facility], 1538) [id number]: Senior Software Engineer Analytics/Techni michael ID = [id number] for LETI THOMAS CT, CHEST, WITH [id number] 21:58:00Unlisted Reason for Exam - Click Yes and Enter Reason Below->No [facility] : 1945 Sex: MFINAL REPORT CT CHEST, ABDOMEN AND PELVIS WITH CONTRAST HISTORY: Malignant neoplasm of the brain. Evaluation for metastatic disease. COMPARISON: MRI lumbar spine 12/13/2021 Technique:Helically acquired images were obtained through the chest, abdomen and pelvis following the administration of contrast. Coronal and sagittal reformats are provided. Post marginal radiation reduction technique was used. FINDINGS: CHEST: Mild cardiomegaly and previous bypass surgery. No pathologic-appearing mediastinal or hilar lymph nodes. There is no consolidation, effusion or pneumothorax. No suspicious pulmonary nodules. There are multiple lytic and sclerotic osseous metastatic lesions involving multiple vertebral bodies and ribs. There is a large expansile RIGHT anterior second rib lesion measuring 58 x 46 mm. ABDOMEN/PELVIS: Normal enhancement of the liver, spleen, RIGHT adrenal gland and pancreas. Small LEFT adrenal nodule measures 20 x 18 mm. Several renal cysts with no visible solid renal mass. Normal appearance of the pancreas, small bowel, appendix and colon. No visible colonic mass. No pathologic-appearing mesenteric or retroperitoneal lymph nodes. Extensive mixed lytic and sclerotic osseous metastatic disease in the lumbar spine and pelvis as well as the proximal hips. No visible pathologic fracture. IMPRESSION: 1. Extensive osseous metastatic disease. Primary malignancy uncertain.Small LEFT adrenal nodule that is indeterminate and could represent a small metastatic lesion but adenoma is slightly favored given the relatively low attenuation of the central aspect of the lesion. Signed: To Michel MDReport Verified Date/Time: 12/13/2021 21:58:43 CT, [id number] 21:58:00Unlisted Reason for Exam - Click Yes and Enter Reason Below->NoCNS tumor in setting of known prostate cancer, stagingIs this for enterography?->NoWill this procedure require oral contrast?->[facility] : 1945 Sex: MFINAL REPORT CT CHEST, ABDOMEN AND PELVIS WITH CONTRAST HISTORY: Malignant neoplasmof the brain. Evaluation for metastatic disease. COMPARISON: MRI lumbar spine 12/13/2021 Technique: Helically acquired images were obtained through the chest, abdomen and pelvis following the administration of contrast. Coronal and sagittal reformats are provided. Post marginal radiation reduction technique was used. FINDINGS: CHEST: Mild cardiomegaly and previous bypass surgery. No pathologic-appearing mediastinal or hilar lymph nodes. There is no consolidation, effusion or pneumothorax. No suspicious pulmonary nodules. There are multiple lytic and sclerotic osseous metastatic lesions involving multiple vertebral bodies and ribs. There is a large expansile RIGHT anterior second rib lesion measuring 58 x 46 mm. ABDOMEN/PELVIS: Normal enhancement of the liver, spleen, RIGHT adrenal gland and pancreas. Small LEFT adrenal nodule measures 20 x 18 mm. Several renal cysts with no visible solid renal mass. Normal appearance of the pancreas, small bowel, appendix and colon. No visible colonic mass. No p athologic-appearing mesenteric or retroperitoneal lymph nodes. Extensive mixed lytic and sclerotic osseous metastatic disease in the lumbar spine and pelvis as well as the proximal hips. No visible pathologic fracture. IMPRESSION: 1. Extensive osseous metastatic disease. Primary malignancy uncertain. Small LEFT adrenal nodule that is indeterminate and could represent a small metastatic lesion but adenoma is slightly favored given the relatively low attenuation of the central aspect of the lesion. Signed: [facility] Verified Date/Time: 12/13/2021 21:58:43 MR, BRAIN, [id number] 20:27:00[facility] Protocol (1mm or thinner cuts, include tip of nose, 0 gantry angle)Unlisted Reason for Exam - Click Yes and Enter Reason Below->No [facility]ENTERName: ROBERTO MUNGUIA : 1945 Sex: MFINAL REPORT MR, BRAIN, WITH \\T\\ WITHOUT CONTRAST INDICATION: Brain/COOK MANAGER neoplasm, staging Technique: MRI of the brain utilizing axial T1, T2, FLAIR, GRE, DWI, sagittal T1; and postgadolinium axial, sagittal, and coronal T1- weighted images. COMPARISON: None FINDINGS:Enhancing lesion involving the left aspect of the clivus, left petrous apex, and left cavernous sinus and Meckel's cave,invading the adjacent left temporal lobe. The mass encases the left horizontal petrous and cavernousinternal carotid artery. Punctate abnormal enhancement within the the distal internal auditory canal(axial postcontrast image #55), which may represent retrograde spread from the greater superficial petrosal nerve more proximally along CN VII. No restricted diffusion to suggest recent infarct. Scattered T2/FLAIR hyperintense foci within the periventricular and subcortical white matter are nonspecific, however, statistically represent chronic microvascular ischemic changes. No hydrocephalus. Orbits are within normal limits. No obstructive paranasal sinus disease. Additional findings: Small left mastoid effusion. IMPRESSION: Enhancing lesion involving the left aspect of the clivus, left petrous apex, and left cavernous sinus and Meckel's cave, invading the adjacent left temporal lobe. The mass encases the left horizontal petrous and cavernous internal carotid artery. Punctate abnormal enhancementwithin the the distal internal auditory canal (axial postcontrast image #55), which may represent retrograde spread from the greater superficial petrosal nerve more proximally along CN VII. Differential considerations include osseous metastases with intraparenchymal extent, or, conceivably, an aggressive meningioma. Signed: Sarah Borges MDReport Verified Date/Time: 12/13/2021 20:27:06 POCT-GLUCOSE [id number] 17:29:14 Test Item Value Reference Range Interpretation Comments POC-GLUCOSE METER 128 mg/dL 70-110 H : TESTED A T [facility] 6720 (ZenDayAKER) (test code = GoFormz [facility], 1538) [id number]: Senior Software Engineer Analytics/Techni michael ID = [id number] for Wi lliams (contract), Jama helle POCT-GLUCOSE [id number] 12:22:08 Test Item Value Reference Range Interpretation Comments POC-GLUCOSE METER 124 mg/dL 70-110 H : TESTED A T [facility] 6720 (Contratan.do) (test code = [employer] [facility], 1538) [id number]: Senior Software Engineer Analytics/Techni michael ID = [id number] for Wi lliams (contract), Jama helle 2D Echo W/Doppler(CW/PW/Color)2021-12-13 11:26:04Ejection FractionSLEH [facility] W[facility]Do[facility](CW/PW/Color)2021-12-13 11:26:04Ejection FractionSLEH [facility] W/Doppler(CW/PW/Color) 2021-12-13 11:26:04Ejection [facility]LEH [facility](CW/PW/Color)2021-12-13 11:26:04Ejection FractionSLEH [facility]CHO [facility] W/Doppler(CW/PW/Color)2021-12-13 11:26:04Ejection FractionSLEH [facility], NON [id number] 10:23:00Reason for exam:->chfShould this be performed at the bedside?->Yes [facility]GUIA : 1945 Sex: MFINAL REPORT RAD, CHEST, 1 VIEW, NON DEPT INDICATION: chf COMPARISON: 08/28/2016 TECHNIQUE: Portable frontal view of the chest. FINDINGS: Support Lines and Devices: Stable. Lungs and pleura: Unchanged airspace and pleural opacities. No pneumothorax identified. Heart and mediastinum: Stable contours. Stable surgical changes. Additional findings: None. IMPRESSION: 1.No significant change from prior exam.2.Low lung volumes with perivascular crowding. Signed: Alida Garcia MDReport Verified Date/Time: 12/13/2021 10:23:31 Reading Location: [address] Reading Room CBC W/PLT COUNT & AUTO [id number] 06:03:10 Test Item Value Reference Range Interpretation Comments WHITE BLOOD CELL COUNT (BEAKER) 3.6 K/ L 3.5-10.5 (test code = 775) RED BLOOD CELL COUNT (BEAKER) 4.24 M/ L 4.63-6.08 L (test code = 761) HEMOGLOBIN (BEAKER) (test code = 13.0 GM/DL 13.7-17.5 L 410) HEMATOCRIT (BEAKER) (test code = 37.2 % 40.1-51.0 L 411) MEAN CORPUSCULAR VOLUME (BEAKER) 87.7 fL 79.0-92.2 (test code = 753) MEAN CORPUSCULAR HEMOGLOBIN 30.7 pg 25.7-32.2 (BEAKER) (test code = 751) MEAN CORPUSCULAR HEMOGLOBIN CONC 34.9 GM/DL 32.3-36.5 (BEAKER) (test code = 752) RED CELL DISTRIBUTION WIDTH 12.2 % 11.6-14.4 (BEAKER) (test code = 412) PLATELET COUNT (BEAKER) (test 236 K/CU MM 150-450 code = 756) MEAN PLATELET VOLUME (BEAKER) 10.8 fL 9.4-12.4 (test code = 754) NUCLEATED RED BLOOD CELLS 0 /100 WBC 0-0 (BEAKER) (test code = 413) NEUTROPHILS RELATIVE PERCENT 79 % (BEAKER) (test code = 429) LYMPHOCYTES RELATIVE PERCENT 14 % (BEAKER) (test code = 430) MONOCYTES RELATIVE PERCENT 6 % (BEAKER) (test code = 431) EOSINOPHILS RELATIVE PERCENT 0 % (BEAKER) (test code = 432) BASOPHILS RELATIVE PERCENT 0 % (BEAKER) (test code = 437) NEUTROPHILS ABSOLUTE COUNT 2.83 K/ L 1.78-5.38 (BEAKER) (test code = 670) LYMPHOCYTES ABSOLUTE COUNT 0.51 K/ L 1.32-3.57 L (BEAKER) (test code = 414) MONOCYTES ABSOLUTE COUNT (BEAKER) 0.20 K/ L 0.30-0.82 L (test code = 415) EOSINOPHILS ABSOLUTE COUNT 0.00 K/ L 0.04-0.54 L (BEAKER) (test code = 416) BASOPHILS ABSOLUTE COUNT (BEAKER) 0.01 K/ L 0.01-0.08 (test code = 417) IMMATURE GRANULOCYTES-RELATIVE 1 % 0-1 PERCENT (BEAKER) (test code = 2801) [id number] 05:56:09 Test Item Value Reference Range Interpretation Comments PROSTATE SPECIFIC ANTIGEN (BEAKER) 0.1 ng/mL 0.0-4.0 (test code = 844) Senior Software Engineer Analytics ID - BASHIR BCOMPREHENSIVE METABOLIC [id number] 05:29:11 Test Item Value Reference Range Interpretation Comments TOTAL PROTEIN 6.8 gm/dL 6.0-8.3 (BEAKER) (test code = 770) ALBUMIN (BEAKER) 3.9 g/dL 3.5-5.0 (test code = 1145) ALKALINE 85 U/L 40-150 PHOSPHATASE (BEAKER) (test code = 346) BILIRUBIN TOTAL 0.4 mg/dL 0.2-1.2 (BEAKER) (test code = 377) SODIUM (BEAKER) 135 meq/L 136-145 L (test code = 381) POTASSIUM (BEAKER) 4.4 meq/L 3.5-5.1 (test code = 379) CHLORIDE (BEAKER) 103 meq/L 98-107 (test code = 382) CO2 (BEAKER) (test 24 meq/L 22-29 code = 355) BLOOD UREA 14 mg/dL 7-21 NITROGEN (BEAKER) (test code = 354) CREATININE 0.76 mg/dL 0.57-1.25 (BEAKER) (test code = 358) GLUCOSE RANDOM 116 mg/dL 70-105 H (BEAKER) (test code = 652) CALCIUM (BEAKER) 9.4 mg/dL 8.4-10.2 (test code = 697) AST (SGOT) 15 U/L 5-34 (BEAKER) (test code = 353) ALT (SGPT) 11 U/L 6-55 (BEAKER) (test code = 347) EGFR (BEAKER) 93 Interpretatio n of eGFR (test code = 1092) mL/min/1.[address] age Description sq m Result G1 Alondra l or high >=90 G2 Mildly decreased 60-89 G3a Mildl y to moderately 45-5 9 G3b Moderately to s everely 30-44 G4 Severl y decreased 15-29 G5 Kidney failure <15Reported eGF R is based on the CKD-EPI 2021 equation that d oes not use a race coefficientEsti mated GFR is not as accur ate as Creatinine Annemarie sim in predicting glom erular filtration rate . Estimated GFR is not appl icable for dialysis patien ts Senior Software Engineer Analytics ID - RANDY [id number] 05:29:11 Test Item Value Reference Range Interpretation Comments MAGNESIUM (BEAKER) (test code = 2.0 mg/dL 1.6-2.6 627) Senior Software Engineer Analytics ID - RANDY MPROTHROMBIN [id number] 05:02:31 Test Item Value Reference Range Interpretation Comments PROTIME (BEAKER) 13.5 seconds 11.9-14.2 (test code = 759) INR (BEAKER) (test 1.05 See_Comment [Automat ed message] code = 370) The system [employer] generated this result transmitted ref erence range: <=5.90. The reference range was not used to int erpret this result as normal/abnormal . RECOMMENDED COUMADIN/WARFARIN INR THERAPY RANGESSTANDARD DOSE: 2.0 - 3.0 Includes: PROPHYLAXIS for venous thrombosis, systemic embolization; TREATMENT for venous thrombosis and/or pulmonary embolus.HIGH RISK: Target INR is 2.5-3.5 for patients with mechanical heart valves.[id number] 05:41:00 Test Item Value Reference Range Interpretation Comments MAGNESIUM (BEAKER) (test code = 1.7 mg/dL 1.6-2.6 627) BASIC METABOLIC [id number] 05:41:00 Test Item Value Reference Range Interpretation [...] WBC 0-0 (BEAKER) (test code = 413) [id number] 04:50:00 Test Item Value Reference Range Interpretation Comments MAGNESIUM (BEAKER) (test code = 1.7 mg/dL 1.6-2.6 627) BASIC METABOLIC [id number] 04:50:00 Test Item Value Reference Range Interpretation [...] WBC 0-0 (BEAKER) (test code = 413) [id number] 06:01:00 Test Item Value Reference Range Interpretation Comments MAGNESIUM (BEAKER) (test code = 1.9 mg/dL 1.6-2.6 627) BASIC METABOLIC [id number] 06:01:00 Test Item Value Reference Range Interpretation [...] S NOT APPLICABLE FOR DIALYSIS PATIEN TS. [id number] 12:38:00 Test Item Value Reference Range Interpretation Comments MAGNESIUM (BEAKER) (test code = 1.9 mg/dL 1.6-2.6 627) [id number] 12:28:00 Test Item Value Reference Range Interpretation Comments PARTIAL THROMBOPLASTIN TIME 29.0 seconds 22.5-36.0 (BEAKER) (test code = 760) PROTHROMBIN [id number] 12:27:00 Test Item Value Reference Range Interpretation Comments PROTIME (BEAKER) (test code = 13.3 seconds 11.7-14.7 759) INR (BEAKER) (test code = 370) 1.0 <=5.9 RECOMMENDED COUMADIN/WARFARIN INR THERAPY RANGESSTANDARD DOSE: 2.0 - 3.0 Includes: PROPHYLAXIS for venous thrombosis, systemic embolization; TREATMENT for venous thrombosis and/or pulmonary embolus.HIGH RISK: Target INR is 2.5-3.5 for patients with mechanical heart valves.[id number] 07:41:00 Test Item Value Reference Range Interpretation Comments MAGNESIUM (BEAKER) (test code = 6.4 mg/dL 1.6-2.6 HH 627) BASIC METABOLIC [id number] 07:24:00 Test Item Value Reference Range Interpretation [...] WBC 0-0 (BEAKER) (test code = 413) [id number] 06:39:00 Test Item Value Reference Range Interpretation Comments MAGNESIUM (BEAKER) (test code = 1.8 mg/dL 1.6-2.6 627) BASIC METABOLIC [id number] 06:39:00 Test Item Value Reference Range Interpretation [...] 697) EGFR (BEAKER) (test 94 mL/min/1.73 ESTIMA KRISTOPHER GFR IS code = 1092) sq m [...] pg/mL 0-100 H (test code = 700) [id number] 02:33:00 Test Item Value Reference Range Interpretation Comments MAGNESIUM (BEAKER) (test code = 1.5 mg/dL 1.6-2.6 L 627) BASIC METABOLIC [id number] 02:33:00 Test Item Value Reference Range Interpretation [...] 697) EGFR (BEAKER) (test 97 mL/min/1.73 ESTIMA KRISTOPHER GFR IS code = 1092) sq m NOT ACCURATE CREATININE CLEARANCE IN PREDICTING GLOMERULAR FILTRATION RATE . ESTIMATED GFR I S NOT APPLICABLE FOR DIALYSIS PATIEN TS. [id number] 05:57:00 Test Item Value Reference Range Interpretation Comments ACTIVATED CLOTTING TIME [address] [facility] 67[address] (BEAKER) (test code = [place] [address]) [id number] 05:57:00 Test Item Value Reference Range Interpretation Comments ACTIVATED CLOTTING TIME 410 sec TEST ED AT [place] [address] (BEAKER) (test code = [place] 441) [address] [id number] 05:57:00 Test Item Value Reference Range Interpretation Comments ACTIVATED CLOTTING TIME 528 sec TEST ED AT [place] [address] (BEAKER) (test code = S[place] 441) [address] [id number] 04:30:00 Test Item Value Reference Range Interpretation Comments MAGNESIUM (BEAKER) (test code = 2.0 mg/dL 1.6-2.6 627) BASIC METABOLIC [id number] 04:30:00 Test Item Value Reference Range Interpretation [...] 697) EGFR (BEAKER) (test 98 mL/min/1.73 ESTIMA KRISTOPHER GFR IS code = 1092) sq m NOT ACCURATE CREATININE CLEARANCE IN PREDICTING GLOMERULAR FILTRATION RATE . ESTIMATED GFR I S NOT APPLICABLE FOR DIALYSIS PATIEN TS. CBC W/PLT COUNT & AUTO [id number] 04:29:00 Test Item Value Reference Range Interpretation [...] K/ L 0.00-0.20 (test code = 417) [id number] 04:26:00 Test Item Value Reference Range Interpretation Comments PHOSPHORUS (BEAKER) (test code = 3.8 mg/dL 2.3-4.7 604) [id number] 04:26:00 Test Item Value Reference Range Interpretation Comments MAGNESIUM (BEAKER) (test code = 2.0 mg/dL 1.6-2.6 627) BASIC METABOLIC [id number] 04:26:00 Test Item Value Reference Range Interpretation [...] 697) EGFR (BEAKER) (test 98 mL/min/1.73 ESTIMA KRISTOPHER GFR IS code = 1092) sq m [...] (BEAKER) (test code = 413) 0.00BLOOD GAS, [id number] 18:15:00 Test Item Value Reference Range Interpretation [...] (test code = 1819) 60.0 % GLUCOSE-STAT [id number] 18:15:00 Test Item Value Reference Range Interpretation Comments GLUCOSE RANDOM (BEAKER) (test code 126 mg/dL 70-110 H = 652) [id number] 18:14:00 Test Item Value Reference Range Interpretation Comments MAGNESIUM (BEAKER) (test code = 2.0 mg/dL 1.6-2.6 627) POTASSIUM-STAT [id number] 18:11:00 Test Item Value Reference Range Interpretation Comments POTASSIUM (BEAKER) (test code = 4.1 meq/L 3.6-5.5 379) [id number] 16:35:00 Test Item Value Reference Range Interpretation Comments MAGNESIUM (BEAKER) 2.4 mg/dL 1.6-2.6 Specimen slightly (test code = 627) hemolyzed [id number] 16:35:00 Test Item Value Reference Range Interpretation Comments PHOSPHORUS (BEAKER) 3.1 mg/dL 2.3-4.7 Specimen slightly (test code = 604) hemolyzed [id number] 16:35:00 Test Item Value Reference Range Interpretation Comments POTASSIUM (BEAKER) 4.5 meq/L 3.5-5.1 Specimen slightly (test code = 379) hemolyzed [id number] 16:35:00 Test Item Value Reference Range Interpretation Comments SODIUM (BEAKER) (test code = 381) 137 meq/L 136-145 [id number] 16:35:00 Test Item Value Reference Range Interpretation Comments GLUCOSE RANDOM (BEAKER) (test code 127 mg/dL 70-105 H = 652) Effective 02/21/2014: Reference Range Change-Adult onlyNew: 70-105 Previous: 70-110BASIC METABOLIC [id number] 16:35:00 Test Item Value Reference Range Interpretation [...] 697) EGFR (BEAKER) (test 98 mL/min/1.73 ESTIMA KRISTOPHER GFR IS code = 1092) sq m NOT ACCURATE CREATININE CLEARANCE IN PREDICTING GLOMERULAR FILTRATION RATE . ESTIMATED GFR I S NOT APPLICABLE FOR DIALYSIS PATIEN TS. LACTIC ACID, ARTERIAL, WHOLE [id number] 16:30:00 Test Item Value Reference Range Interpretation Comments LACTATE BLOOD 1.1 mmol/L 0.5-2.2 Specimen sligh tly ARTERIAL (2) (BEAKER) hemoly zed (test code = 2874) Effective 08/08/2015: Units/Reference Range ChangeNew: 0.5-2.2 mmol/L Previous: 5- 20 mg/dLCBC W/PLT COUNT & AUTO [id number] 16:22:00 Test Item Value Reference Range Interpretation [...] L 0.00-0.20 (test code = 417) 0.00CALCIUM, [id number] 16:10:00 Test Item Value Reference Range Interpretation Comments CALCIUM IONIZED (BEAKER) (test 1.11 mmol/L 1.12-1.27 L code = 698) PH, BLOOD (BEAKER) (test code = 7.40 1810) BLOOD GAS, [id number] 16:10:00 Test Item Value Reference Range Interpretation [...] code = 1819) 60.0 % OXYGEN SATURATION, [id number] 16:08:00 Test Item Value Reference Range Interpretation Comments O2 SATURATION (MEASURED) (BEAKER) 59.9 % (test code = 1455) From distal port of IJ central venous catheterBLOOD GAS, [id number] 14:53:00 Test Item Value Reference Range Interpretation [...] (test code = 1819) 97.0 % GLUCOSE-STAT [id number] 14:53:00 Test Item Value Reference Range Interpretation Comments GLUCOSE RANDOM (BEAKER) (test code 136 mg/dL 70-110 H = 652) HGB/HCT (H&H) - STAT [id number] 14:53:00 Test Item Value Reference Range Interpretation Comments HEMOGLOBIN (BEAKER) (test code = 12.9 g/dL 13.0-16.8 L 410) HEMATOCRIT (BEAKER) (test code = 38.0 % 40.0-50.0 L 411) CALCIUM, [id number] 14:53:00 Test Item Value Reference Range Interpretation Comments CALCIUM IONIZED (BEAKER) (test 0.96 mmol/L 1.12-1.27 L code = 698) PH, BLOOD (BEAKER) (test code = 7.39 1810) SODIUM NA-STAT [id number] 14:52:00 Test Item Value Reference Range Interpretation Comments SODIUM (BEAKER) (test code = 381) 135 meq/L 135-148 POTASSIUM-STAT [id number] 14:52:00 Test Item Value Reference Range Interpretation [...] MM 55.0-65.0 H (test code = 1413) [id number] 14:13:00 Test Item Value Reference Range Interpretation Comments FIBRINOGEN LEVEL (BEAKER) (test 209 mg/dl 225-434 L code = 658) PROTHROMBIN [id number] 14:08:00 Test Item Value Reference Range Interpretation Comments PROTIME (BEAKER) (test code = 19.2 seconds 11.7-14.7 H 759) INR (BEAKER) (test code = 370) 1.6 <=5.9 RECOMMENDED COUMADIN/WARFARIN INR THERAPY RANGESSTANDARD DOSE: 2.0 - 3.0 Includes: PROPHYLAXIS for venous thrombosis, systemic embolization; TREATMENT for venous thrombosis and/or pulmonary embolus.HIGH RISK: Target INR is 2.5-3.5 for patients with mechanical heart valves.[id number] 14:08:00 Test Item Value Reference Range Interpretation Comments PARTIAL THROMBOPLASTIN TIME 30.3 seconds 22.5-36.0 (BEAKER) (test code = 760) PLATELET [id number] 14:01:00 Test Item Value Reference Range Interpretation Comments PLATELET COUNT (BEAKER) (test 158 K/CU MM 150-430 code = 756) BLOOD GAS, [id number] 13:53:00 Test Item Value Reference Range Interpretation [...] (test code = 1819) 97.0 % GLUCOSE-STAT [id number] 13:53:00 Test Item Value Reference Range Interpretation Comments GLUCOSE RANDOM (BEAKER) (test code 112 mg/dL 70-110 H = 652) SODIUM NA-STAT [id number] 13:53:00 Test Item Value Reference Range Interpretation Comments SODIUM (BEAKER) (test code = 381) 133 meq/L 135-148 L HGB/HCT (H&H) - STAT [id number] 13:53:00 Test Item Value Reference Range Interpretation Comments HEMOGLOBIN (BEAKER) (test code = 11.5 g/dL 13.0-16.8 L 410) HEMATOCRIT (BEAKER) (test code = 34.0 % 40.0-50.0 L 411) CALCIUM, [id number] 13:53:00 Test Item Value Reference Range Interpretation Comments CALCIUM IONIZED (BEAKER) (test 1.11 mmol/L 1.12-1.27 L code = 698) PH, BLOOD (BEAKER) (test code = 7.44 1810) POTASSIUM-STAT [id number] 13:50:00 Test Item Value Reference Range Interpretation Comments POTASSIUM (BEAKER) (test code = 4.3 meq/L 3.6-5.5 379) POTASSIUM-STAT [id number] 13:11:00 Test Item Value Reference Range Interpretation Comments POTASSIUM (BEAKER) (test code = 4.5 meq/L 3.6-5.5 379) BLOOD GAS, [id number] 13:11:00 Test Item Value Reference Range Interpretation [...] (test code = 1819) 80.0 % GLUCOSE-STAT [id number] 13:11:00 Test Item Value Reference Range Interpretation Comments GLUCOSE RANDOM (BEAKER) (test code 114 mg/dL 70-110 H = 652) SODIUM NA-STAT [id number] 13:11:00 Test Item Value Reference Range Interpretation Comments SODIUM (BEAKER) (test code = 381) 133 meq/L 135-148 L HGB/HCT (H&H) - STAT [id number] 13:11:00 Test Item Value Reference Range Interpretation Comments HEMOGLOBIN (BEAKER) (test code = 10.4 g/dL 13.0-16.8 L 410) HEMATOCRIT (BEAKER) (test code = 31.0 % 40.0-50.0 L 411) BLOOD GAS, [id number] 12:10:00 Test Item Value Reference Range Interpretation [...] (BEAKER) (test code = 1819) 100.0 % HGB/HCT (H&H) - STAT [id number] 12:08:00 Test Item Value Reference Range Interpretation Comments HEMOGLOBIN (BEAKER) (test code = 15.2 g/dL 13.0-16.8 410) HEMATOCRIT (BEAKER) (test code = 45.0 % 40.0-50.0 411) GLUCOSE-STAT [id number] 12:08:00 Test Item Value Reference Range Interpretation Comments GLUCOSE RANDOM (BEAKER) (test code 101 mg/dL 70-110 = 652) SODIUM NA-STAT [id number] 12:08:00 Test Item Value Reference Range Interpretation Comments SODIUM (BEAKER) (test code = 381) 137 meq/L 135-148 POTASSIUM-STAT [id number] 12:08:00 Test Item Value Reference Range Interpretation Comments POTASSIUM (BEAKER) (test code = 3.7 meq/L 3.6-5.5 379) HEMOGLOBIN [id number] 12:31:00 Test Item Value Reference Range Interpretation Comments HEMOGLOBIN A1C (BEAKER) (test code = 4.9 % 4.3-6.1 368) BASIC METABOLIC [id number] 10:54:00 Test Item Value Reference Range Interpretation [...] 697) EGFR (BEAKER) (test 81 mL/min/1.73 ESTIMA KRISTOPHER GFR IS code = 1092) sq m NOT ACCURATE CREATININE CLEARANCE IN PREDICTING GLOMERULAR FILTRATION RATE . ESTIMATED GFR I S NOT APPLICABLE FOR DIALYSIS PATIEN TS. CBC W/PLT COUNT & AUTO [id number] 10:47:00 Test Item Value Reference Range Interpretation [...] L 0.00-0.20 (test code = 417) 0.00PROTHROMBIN [id number] 10:46:00 Test Item Value Reference Range Interpretation [...]
[2022-06-12] MEDS ORDERED: dexAMETHasone 10 MG/ML VIAL ONE (17:27)
[2022-06-12 17:34] LABS: Absolute Lymphocytes (CBC) 0.6 K/uL (0.7-4.9); Lymphocytes % 11.2 % (15.3-44.8); MCV 88.7 fL (80-100); MPV 8.2 fL (7.6-11.3); RBC Red Blood Cell Count 3.95 M/uL (4.33-5.43)
[2022-06-12 17:38] LABS: Protime INR 1.09
[2022-06-12 18:09] LABS: SARS-CoV-2 Antigen Rapid Res Negative (Negative)
[2022-06-12] MEDS ORDERED: DIPHENOX/ATROP SULF 1 TAB PO ONE (19:33)
[2022-06-12 21:11] VITALS: BP 136/92; TEMP 97.6; O2SAT 100
--- NOTE | 2022-06-27 15:34 | ER ---
Nurse's Notes [facility] Name: Robbi Wallace Jr Age: 77 yrs Sex: Male : 1945 Arrival Date: 06/12/2022 Time: 16:55 Bed 7 Private MD: Silver Bridges T Diagnosis: T2 metastatic mass with cord compression;Weakness Presentation: 06/12 17:06 Chief complaint: Sent by Dr. Augustine for abnormal MRI. Pt reports generalized weakness, jl7 worse over last 2 weeks. Coronavirus screen: At this time, the client does not indicate any symptoms associated with coronavirus-19. Ebola Screen: No symptoms or risks identified at this time. Initial Sepsis Screen: Does the patient meet any 2 criteria? No. Patient's initial sepsis screen is negative. Does the patient have a suspected source of infection? No. Patient's initial sepsis screen is negative. Risk Assessment: Do you want to hurt yourself or someone else? Patient reports no desire to harm self or others. Onset of symptoms was June 12, 2022. 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 - Family history:: not pertinent. - Social history:: Smoking status: unknown. - Hospitalizations: : No recent hospitalization is reported. Screenin:39 [facility] ED Fall Risk Assessment (Adult) Impaired Gait Yes (1 pt) Mobility Assist ll1 Device Used Yes (1 pt) Score/Fall Risk Level 0 - 2 = Low Risk Oriented to surroundings, Maintained a safe environment, Educated pt \T\ family on fall prevention, incl call for assistance when getting out of bed, Hourly rounding (assess needs \T\ fall precautionary measures) done. Abuse screen: Denies threats or abuse. Nutritional screening: No deficits noted. Tuberculosis screening: No symptoms or risk factors identified. Assessment: 17:10 General: Appears in no apparent distress. Behavior is calm, cooperative, appropriate ll1 for age. Pain: Denies pain. Neuro: Reports weakness. Cardiovascular: No deficits noted. Musculoskeletal: Circulation, motion, and sensation intact. Capillary refill < 3 seconds, Reports pain in back. 19:36 Reassessment: No changes from previously documented assessment. Patient and/or family ll1 updated on plan of care and expected duration. Pain level reassessed. Vital Signs: 17:06 BP 136 / 92; Pulse 93; Resp 18; Temp 97.6(TE); Pulse Ox 100% on R/A; jl7 ED Course: 16:55 Patient arrived in ED. mr 16:55 Xu Gautam MD is Attending Physician. rn 16:55 Silver Bridges MD is Private Physician. mr 17:02 Shad Hendrickson, MATIAS is Primary Nurse. ll1 17:06 Triage completed. jl7 17:07 Arm band placed on. jl7 17:14 Missed attempt(s): 22 gauge in right hand. antecubital area. Bleeding controlled, band ll1 aid applied, catheter tip intact. 17:27 attempted to initiate a transfer with the [facility] but was hung up on.eb 17:35 initiated a transfer with Juliana Fink from the [facility]. eb 17:35 SARS RAPID Sent. ll1 17:36 IV discontinued, intact, bleeding controlled, Pressure dressing applied, site ll1 infiltrated. 18:19 administrative approval given by Juliana Fink Rn/ patient has been accepted to [facility] RM 2226/ Dr. Kyree Woods has accepted the patient in transfer/ report to be called to [phone]. 18:39 Patient has correct armband on for positive identification. Bed in low position. Call ll1 light in reach. Side rails up X2. Client placed on continuous cardiac and pulse oximetry monitoring. NIBP monitoring applied. 19:36 No provider procedures requiring assistance completed. ll1 Administered Medications: 17:28 Drug: Decadron - Dexamethasone IVP 10 mg Route: IVP; Site: left antecubital; ll1 19:11 Follow up: Response: No adverse reaction ll1 19:36 Drug: Diphenoxylate-Atropine PO 1 tabs Route: PO; ll1 Medication: 18:39 VIS not applicable for this client. ll1 Outcome: 17:36 ER care complete, transfer ordered by . rn 19:36 Transferred by ground EMS to [facility], Transfer form completed. ll1 19:36 Transferred Note: report called to Bonnie Aldrich RN at [facility] 19:36 Condition: stable 19:36 Instructed on the need for transfer. 20:00 Patient left the ED. as6 Signatures: Debra Anne Roman, MD MD rn Leal, Jahala, RN RN jl7 Nakia Mace Lynsay, RN RN ll1 Hollis Villareal RN RN as6 Corrections: (The following items were deleted from the chart) 18:35 18:33 administrative approval given by Juliana Fink Rn/ patient has been accepted to [facility] RM 2226/ Dr. Kyree Woods has accepted the patient in transfer/ report to be called to [phone]
--- NOTE | 2022-06-27 15:34 | EDPHYS ---
Physician Documentation [facility] Name: Robbi Wallace Jr Age: 77 yrs Sex: Male : 1945 Arrival Date: 06/12/2022 Time: 16:55 Bed 7 Private MD: Silver Bridges T ED Physician Xu Gautam HPI: 06/12 16:56 This 77 yrs old Male presents to ER via Unassigned with complaints of Abnormal MRI. rn 16:56 The patient presents with pain that is acute. The symptoms are located in the thoracic rn area. Onset: The symptoms/episode began/occurred at an unknown time. Associated signs and symptoms: Pertinent negatives: abdominal pain, chest pain, fever. Modifying factors: The patient symptoms are alleviated by nothing, the patient symptoms are aggravated by bending. Severity of symptoms: At their worst the symptoms were mild, in the emergency department the symptoms are unchanged. The patient has experienced similar episodes in the past. The patient has been recently seen by a physician:. Pt sent by his oncologist Dr. Augustine, for abnormal MRI results. Recent MRI shows T2 mass with signs of cord compression per Dr. Augustine. Has mild arm weakness. Sent here to be transferred to [facility]. . 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 - Family history:: not pertinent. - Social history:: Smoking status: unknown. - Hospitalizations: : No recent hospitalization is reported. ROS: 16:56 Constitutional: Negative for fever, chills, and weight loss, Neck: Negative for injury, rn pain, and swelling, Cardiovascular: Negative for chest pain, palpitations, and edema, Respiratory: Negative for shortness of breath, cough, wheezing, and pleuritic chest pain, Abdomen/GI: Negative for abdominal pain, nausea, vomiting, diarrhea, and constipation, Back: + back pain MS/Extremity: Negative for injury and deformity, Skin: Negative for injury, rash, and discoloration, Neuro: + weakness Exam: 17:25 Constitutional: This is a well developed, well nourished patient who is awake, alert, rn and in no acute distress. Head/Face: Normocephalic, atraumatic. Cardiovascular: Regular rate and rhythm. No pulse deficits. Respiratory: No increased work of breathing, no retractions or nasal flaring. Abdomen/GI: Soft, non-tender Neuro: Awake and alert, GCS 15, oriented to person, place, time, and situation. + left facial weakness. Motor strength 4/5 RLE, 5/5 LLE. Sensory grossly intact. Vital Signs: 17:06 BP 136 / 92; Pulse 93; Resp 18; Temp 97.6(TE); Pulse Ox 100% on R/A; jl7 MDM: 16:55 Patient medically screened. rn 17:33 Differential diagnosis: Neoplasm Osteoarthritis ruptured disc, spinal injury, vertebral rn fracture, new metastatic mass with cord compression. Data reviewed: vital signs, nurses notes, diagnostic data from outside facility, MRI, radiologic studies, MRI, and as a result, I will admit patient. Consideration of Admission/Observation Patient was admitted/placed on observation. Escalation of care including admission/observation considered. Management of patient was discussed with the following: Home Care Physical Therapist: Discussed case with Dr. Augustine, patient's oncologist. Independent interpretation of the following test(s) in the Emergency Department MRI: My interpretation is Large T2 mass with posterior extension and cord compression with edema per my interpretation. Counseling: I had a detailed discussion with the patient and/or guardian regarding: the historical points, exam findings, and any diagnostic results supporting the discharge/admit diagnosis, radiology results, the need to transfer to another facility, for higher level of care, [facility] does not immediately have the required specialist. 06/12 16:58 Order name: CBC with Diff; Complete Time: 18:15 rn 06/12 16:58 Order name: Basic Metabolic Panel; Complete Time: 18:15 rn 06/12 16:58 Order name: Protime (+inr); Complete Time: 18:15 rn 06/12 16:58 Order name: Ptt, Activated; Complete Time: 18:15 rn 06/12 17:24 Order name: SARS RAPID; Complete Time: 18:15 eb 06/12 16:58 Order name: IV Start; Complete Time: 17:28 rn Administered Medications: 17:28 Drug: Decadron - Dexamethasone IVP 10 mg Route: IVP; Site: left antecubital; ll1 19:11 Follow up: Response: No adverse reaction ll1 19:36 Drug: Diphenoxylate-Atropine PO 1 tabs Route: PO; ll1 Disposition: 06/13 07:04 Co-signature as Attending Physician, Xu Gautam MD. rn Disposition Summary: 06/12/22 17:36 Transfer Ordered Transfer Location: [facility] rn Reason: Higher level of care rn Condition: Stable rn Problem: new rn Symptoms: have improved rn Accepting Physician: Dr. Kyree Woods [facility](06/12/22 20:00) as6 Diagnosis - T2 metastatic mass with cord compression rn - Weakness rn Forms: - Medication Reconciliation Form rn - SBAR form rn Signatures: Dispatcher [employer] EDXu Galdamez MD MD rn Leal, Jahala RN RN jl7 Nakia Mace Lynsay RN RN ll1 Hollis Villareal RN RN as6 Corrections: (The following items were deleted from the chart) 06/12 18:36 17:36 Dr. shepherd eb 20:00 18:36 Dr. Kyree Woods [facility] eb as6
== END 2022-06-12 20:00 | disposition short-term general hospital (02) ==
LOC: ER 16:52
DX: C79.49 Secondary malignant neoplasm of other parts of nervous system (principal); C61 Malignant neoplasm of prostate; Z95.818 Presence of other cardiac implants and grafts; Z95.1 Presence of aortocoronary bypass graft; Z20.822 Contact with and (suspected) exposure to COVID-19
CPT/HCPCS: 85025; 80048; 36415; 85610; 85730; 96374; 99285; 87811; J1100